=== PATIENT | female | born 1955 | race Two or more races ===

== ENCOUNTER 2023-04-06 09:35 | Outpatient (OUT) | payer OTHER, MEDICARE, SELFPAY ==
--- NOTE | 2023-04-06 09:43 | MM_ITS ---
Patient: VARGAS RIVAS Exam Date: 04/06/2023 : 1955 Gender:F Ordering : DR David Horan . Admission #: [id number] Family : Non-Staff Physician Order #: [id number] CLICK HERE TO VIEW EXAM RADIOLOGY REPORT PROCEDURE: MM TOMOSYNTHESIS SCREENING BI COMPARISON: None. INDICATIONS: Screening Calculator Name NCI Breast Cancer Risk Assessment Tool 5 Year Breast Cancer Risk 2.30% Lifetime Breast Cancer Risk 6.90% Personal Breast Cancer No Personal Ovarian Cancer No Treatments None Family Cancers Sister with breast cancer at age 29. LOCATION: [facility] BREAST COMPOSITION: Scattered areas fibroglandular density. FINDINGS: DIAGNOSTIC CATEGORY 2--BENIGN FINDING: RIGHT BREAST: No significant suspicious finding. Scattered benign-appearing calcifications are present. LEFT BREAST: No significant suspicious finding. Scattered benign-appearing calcifications are present. RECOMMENDATIONS: ROUTINE MAMMOGRAM AND CLINICAL EVALUATION IN 12 MONTHS. PLEASE NOTE: A NORMAL MAMMOGRAM DOES NOT EXCLUDE THE POSSIBILITY OF BREAST CANCER. A CLINICALLY SUSPICIOUS PALPABLE LUMP SHOULD BE BIOPSIED. Dictated by: Nirav Durbin M.D. on 04/07/2023 at 13:56 Approved by: Nirav Durbin M.D. on 04/07/2023 at 14:01
== END 2023-04-06 09:40 | disposition home or self-care (01) ==
LOC: MAMMO 04-07 09:37
PROVIDERS: Visit Provider Obstetrics & Gynecology
DX: Z12.31 Encounter for screening mammogram for malignant neoplasm of breast (principal); Z80.3 Family history of malignant neoplasm of breast
CPT/HCPCS: 77063; 77067

== ENCOUNTER 2023-06-23 13:00 | Outpatient (OUT) | payer OTHER, MEDICARE, SELFPAY | END 2023-06-23 13:00 | disposition home or self-care (01) | LOC: RAD 13:00 | DX: Z53.8 Procedure and treatment not carried out for other reasons (principal) ==

== ENCOUNTER 2024-04-09 07:53 | Outpatient (OUT) | payer OTHER, MEDICARE, SELFPAY ==
--- NOTE | 2024-04-09 07:58 | MM_ITS ---
Patient Name: VARGAS RIVAS MR#: [id number] : 1955 Exam Date: 04/09/2024 Ordering Doctor: DR David Horan . RADIOLOGY REPORT PROCEDURE: MM TOMOSYNTHESIS SCREENING BI COMPARISON: MM TOMOSYNTHESIS SCREENING BI, 04/06/2023. INDICATIONS: Screening Calculator Name NCI Breast Cancer Risk Assessment Tool 5 Year Breast Cancer Risk 2.30% Lifetime Breast Cancer Risk 6.60% Personal Breast Cancer No Personal Ovarian Cancer No Treatments None Family Cancers Sister with breast cancer at age 29. LOCATION: [facility] BREAST COMPOSITION: There are scattered areas of fibroglandular density. FINDINGS: DIAGNOSTIC CATEGORY 2--BENIGN FINDING. NO CHANGE FROM COMPARISON. Scattered benign-appearing calcifications are present. Scattered benign-appearing lymph nodes are present. RIGHT BREAST: No significant suspicious finding. LEFT BREAST: No significant suspicious finding. RECOMMENDATIONS: ROUTINE MAMMOGRAM AND CLINICAL EVALUATION IN 12 MONTHS. PLEASE NOTE: A NORMAL MAMMOGRAM DOES NOT EXCLUDE THE POSSIBILITY OF BREAST CANCER. A CLINICALLY SUSPICIOUS PALPABLE LUMP SHOULD BE BIOPSIED. Dictated by: Antonio Colon MD on 04/09/2024 at 11:54 Approved by: Antonio Colon MD on 04/09/2024 at 11:55
--- OUTSIDE RECORDS SUMMARY | 2024-04-09 08:08 | XMS_ITS | CCD ---
Author Organization [facility] Care Team Providers Care Humanities Department Chair Name Role Phone Marin Batres Primary Care Provider Nilson Pan MD Primary Care Provider Marin BATRES Primary Care Physician DANA, DR VASQUEZ Consulting Unavailable KARASIK, DR VASQUEZ Admitting Unavailable KARASIK, DR VASQUEZ Attending Unavailable Edgar, Kaylee Consulting Unavailable KARASIK, DR VASQUEZ Admitting Unavailable KARASIK, DR VASQUEZ Attending Unavailable KARASIK, DR VASQUEZ Consulting Unavailable KARASIK, DR VASQUEZ Consulting Unavailable KARASIK, DR VASQUEZ Admitting Unavailable KARASIK, DR VASQUEZ Attending Unavailable Nilson Pan MD Primary Care Provider Marin Batres MD Primary Care Provider Nilson Pan MD Primary Care Provider NILSON PAN Admitting Unavailable YVES JONES Attending Unavailab NILSON Boo Referring Unavailable NILSON PAN Primary Care Unavailable DEMETRICE ALFONSO Attending U NILSON Hawthorne Primary Care Unavailable Nilson Pan MD Primary Care Provider CHRISTOPHE PATTERSON Attending Unavailable NILSON PAN Primary Care Unavailable MARIN BATRES Primary Care Unavailable MARIN BEAVER Attending Unavailable ROBIN DAWKINS Attending Unavailable Marin BATRES Primary Care Physician [phone] LONG Heredia Attending Unavailable Anika Mckenzie Attending Unavailable BROWN, Christopher Attending Unavailable BROWN, Christopher Attending Unavailable BROWN, Christopher Attending Unavailable BROWN, Christopher Attending Unavailable BROWN, Christopher Attending Unavailable BROWN, Christopher Attending Unavailable BROWN, Christopher Attending Unavailable BROWN, Christopher Attending Unavailable BROWN, Christopher Attending Unavailable BROWN, Christopher Attending Unavailable BROWN, Christopher Attending Unavailable BROWN, Christopher Consulting Unavailable REFERRAL, SELF Attending Unavailable MD Sandro BATRESer Consulting Unavailabl e XOCHILT, Terrie A Consulting Unavailabl e BROWN, Christopher Consulting Unavailable BROWN, Christopher Consulting Unavailable BROWN, Christopher Consulting Unavailable BROWN, Christopher Consulting Unavailable BROWN, Christopher Consulting Unavailable BROWN, Christopher Consulting Unavailable BROWN, Christopher Consulting Unavailable BROWN, Christopher Consulting Unavailable BROWN, Christopher Consulting Unavailable BROWN, Christopher Consulting Unavailable BROWN, Christopher Consulting Unavailable BROWN, Christopher Consulting Unavailable BROWN, Christopher Consulting Unavailable BROWN, Christopher Consulting Unavailable BROWN, Christopher Consulting Unavailable BROWN, Christopher Consulting Unavailable REFERRAL, SELF Attending Unavailable GISEL, Christopher Consulting Unavailable MD GISEL Christopher Consulting Unavailabl e XOCHILT, Terrie A Consulting Unavailabl e BROWN, Christopher Consulting Unavailable BROWN, Christopher Consulting Unavailable BROWN, Christopher Consulting Unavailable BROWN, Christopher Consulting Unavailable BROWN, Christopher Consulting Unavailable BROWN, Christopher Consulting Unavailable BROWN, Christopher Consulting Unavailable BROWN, Christopher Consulting Unavailable BROWN, Christopher Consulting Unavailable BROWN, Christopher Consulting Unavailable BROWN, Christopher Consulting Unavailable BROWN, Christopher Consulting Unavailable BROWN, Christopher Consulting Unavailable BROWN, Christopher Consulting Unavailable BROWN, Christopher Consulting Unavailable BROWN, Christopher Consulting Unavailable BROWN, Christopher Attending Unavailable BROWN, Christopher Admitting Unavailable BROWN, Christopher Attending Unavailable BROWN, Christopher Admitting Unavailable Tari Meier Attending Unavailable Allergies Allergy Classification Reported Allergen(s) Allergy Type Date of Onset Reaction(s) Facility (20 sources) zolpidem; Translations: [zolpidem] Drug Allergy 03-15-2022 sleep walking [facility] Medications Current Medications Medication Drug Class(es) Dates Sig (Normalized) Sig (Original) acetaminophen 325 mg / HYDROcodone bitartrate 5 mg oral tablet (5 sources) Opioid Agonist End: 07-17-2021 take 1 tablet by mouth every six hours as needed for pain HYDROcodone-acetam inophen (NORCO) 5-325 MG per tablet Take 1 tablet by mouth every 6 hours as needed for Pain. 0 07/17/2021 Discontinued (LIST CLEANUP) amoxicillin 500 mg / clavulanate 125 mg oral tablet (5 sources) Penicillin-class Antibacterial Start: 07-20-2019 End: 07-17-2021 take 1 tablet by mouth every eight hours amoxicillin-clavul anate (AUGMENTIN) 500-125 MG per tablet take 1 tablet by mouth every 8 hours for 10 days 0 07/20/2019 07/17/2021 Discontinued (LIST CLEANUP) ascorbic acid 60 mg / beta carotene 5000 unt / copper sulfate 40 mg / dl-alpha tocopheryl acetate 30 unt / sodium selenite 0.04 mg / zinc oxide 40 mg oral tablet (3 sources) Vitamin C take 1 tablet by mouth once daily Multiple Vitamins-Minerals (THERAPEUTIC MULTIVITAMIN-FORENSIC PSYCHOLOGIST ALS) tablet Take 1 tablet by mouth daily 0 Active azelastine hydrochloride 0.137 mg/actuat metered dose nasal spray (7 sources) Histamine-1 Receptor Antagonist Start: 12-14-2022 azelastine hydrochloride 137 mcg spray Refills(s) 0 Start Date: 12/14/22 Status: Ordered Start: 12-01-2022 End: 12-01-2023 azelastine (ASTELIN) 137 mcg (0.1 %) nasal spray Indications: Postnasal drip 1 (one) spray by Each Nare route 2 (two) times a day . 30 mL 12 12/01/2022 12/01/2023 Active biotin 10 mg oral capsule (7 sources) Biotin 10 MG CAP S Take by mouth 0 Active clotrimazole 10 mg oral lozenge (2 sources) Azole Antifungal Start: 2022 End: 2023 clotrimazole 10 mg Blas 10 mg = 1 lozenge(s), Oral, QID, X 7 day(s), # 28 lozenge(s), Refills(s) 0, Pharmacy: [id number], 157, cm, 08/26/23 9:54:00 EST, Height/Length Dosing, 61.3, kg, 08/26/23 9:54:00 EST, Weight Dosing Start Date: 08/26/23 Stop Date: 09/02/23 Status: Ordered cyclobenzaprine hydrochloride 10 mg oral tablet (2 sources) Muscle Relaxant Start: 2021 End: 2021 take 1 tablet by mouth three times daily as needed for muscle spasms cyclobenzaprine (FLEXERIL) 10 MG tablet Take 1 tablet by mouth 3 times daily as needed for Muscle spasms 15 tablet 0 08/09/2022 08/09/2022 Discontinued (REORDER) diclofenac sodium 0.01 mg/mg topical gel (6 sources) Nonsteroidal Anti-inflammatory Drug Start: 2023 End: 2023 apply 2 g topically four times daily diclofenac topical 1% gel 2 gm, Topical, QID for 30 day(s), 100 gm, Refill(s) 5 Start Date: 09/20/23 Stop Date: 03/18/24 Status: Ordered escitalopram 10 mg oral tablet (4 sources) Serotonin Reuptake Inhibitor Start: 2023 take 1 tablet by mouth once daily escitalopram 10 mg Tab 10 mg = 1 tab(s), Oral, Daily, # 30 tab(s), Refills(s) 5, Pharmacy: [id number], 157, cm, 12/27/23 14:42:00 EDT, Height/Length Dosing, 58.3, kg, 12/27/23 14:42:00 EDT, Weight Dosing Start Date: 12/27/23 Status: Ordered fluticasone propionate 0.05 mg/actuat metered dose nasal spray (2 sources) Corticosteroid Start: 2022 End: 2023 take 1 spray(s) nasal route twice daily fluticasone propionate (FLONASE) 50 mcg/actuation nasal spray Indications: Post-nasal drainage Instill 1 (one) spray into each nostril 2 (two) times a day . 16 g 3 11/30/2022 12/01/2022 Discontinued (Patient's Request) gabapentin 100 mg oral capsule (5 sources) Anti-epileptic Agent End: 2020 take 1 capsule by mouth three times daily gabapentin (NEURONTIN) 100 MG capsule Take 100 mg by mouth 3 times daily. 0 07/17/2021 Discontinued (LIST CLEANUP) ibuprofen 600 mg oral tablet (6 sources) Nonsteroidal Anti-inflammatory Drug Start: 2021 End: 2021 take 1 tablet by mouth every six hours as needed for pain ibuprofen (IBU) 600 MG tablet Take 1 tablet by mouth every 6 hours as needed for Pain 30 tablet 0 08/09/2022 Active Start: 07-17-2021 take 1 tablet by ramon three times daily as needed for pain ibuprofen (ADVIL;MOTRIN) 600 MG tablet Take 1 tablet by mouth 3 times daily as needed for Pain 30 tablet 0 07/17/2021 Active latanoprost 0.05 mg/ml ophthalmic solution (13 sources) Prostaglandin Analog Start: 12-14-2022 latanoprost Opth 0.005% Louise 1 drop(s), OPTH, Once a day (at bedtime), 2.5 mL, Refill(s) 0 Start Date: 12/14/22 Status: Ordered lidocaine 0.05 mg/mg medicated patch (2 sources) Antiarrhythmic, Amide Local Anesthetic Start: 07-20-2022 apply 1 dose transdermal route once daily lidocaine (LIDODERM) 5 % Place 1 patch onto the skin daily 12 hours on, 12 hours off. 10 patch 0 07/20/2022 Active loratadine 10 mg oral tablet (8 sources) Start: 12-14-2022 take 1 tablet by mouth every other day loratadine 10 mg Tab 10 mg = 1 tab(s), Oral, Every other day, # 15 tab(s), Refills(s) 0 Start Date: 12/14/22 Status: Ordered Start: 11-30-2022 End: 03-30-2023 take 1 tablet by mouth once daily loratadine (CLARITIN) 10 mg tablet Indications: Post-nasal drainage Take 1 (one) tablet (10 mg total) by mouth daily . 30 tablet 3 11/30/2022 03/30/2023 Active montelukast 10 mg oral tablet (6 sources) Leukotriene Receptor Antagonist Start: 05-05-2022 take 1 tablet by mouth once daily montelukast (SINGULAIR) 10 mg tablet Take 1 (one) tablet (10 mg total) by mouth nightly . 0 09/18/2022 Active Multiple Vitamins-Minerals (THERAPEUTIC MULTIVITAMIN-FORENSIC PSYCHOLOGIST ALS) tablet (4 sources) take 1 tablet by mouth once daily Multiple Vitamins-Minerals (THERAPEUTIC MULTIVITAMIN-MINE RALS) tablet Take 1 tablet by mouth daily 0 Active Multivitamin, Therapeutic w/ Minerals (15 sources) Start: 12-15-2016 Multivitamin, Therapeutic w/ Minerals 1 tab(s), Oral, Daily, 30 tab(s), Refill(s) 0, Prophylaxis Start Date: 12/15/16 Status: Ordered mupirocin 0.02 mg/mg topical ointment (4 sources) RNA Synthetase Inhibitor Antibacterial Start: 04-22-2023 mupirocin Top 2% Oint 1 betty, Topical, BID, 15 gram, Refill(s) 0, apply a thin film neo affected areas, [id number], 157, cm, 04/22/23 16:44:00 EDT, Height/Length Dosing, 60.1, kg, 04/22/23 16:44:00 EDT, Weight Dosing Start Date: 04/22/23 Status: Ordered naproxen 500 mg oral tablet (1 source) Nonsteroidal Anti-inflammatory Drug Start: 04-06-2024 take 1 tablet by mouth twice daily naproxen 500 mg Tab 500 mg = 1 tab(s), Oral, BID, # 60 tab(s), Refills(s) 0, Pharmacy: [id number], 157, cm, 04/06/24 14:08:00 EDT, Height/Length Dosing, 58.2, kg, 04/06/24 14:08:00 EDT, Weight Dosing Start Date: 04/06/24 Status: Ordered pantoprazole 40 mg delayed release oral tablet (6 sources) Proton Pump Inhibitor Start: 09-24-2022 take 1 tablet by mouth once daily before breakfast pantoprazole (PROTONIX) 40 MG tablet TAKE 1 TABLET BY MOUTH EVERY MORNING before BREAKFAST 30 tablet 5 09/24/2022 Active Start: 05-05-2022 take 1 tablet by ramon th once daily before breakfast pantoprazole (PROTONIX) 40 MG tablet Take 1 tablet by mouth every morning (before breakfast) 30 tablet 2 05/05/2022 Active predniSONE 20 mg oral tablet (2 sources) Start: 12-14-2022 predniSONE 20 mg Tab take 2 tablet once daily for 3 days then 1 tablet once daily Start Date: 12/14/22 Status: Ordered Start: 12-11-2022 predniSONE (DE LTASONE) 20 MG tablet 2 tabs daily x 3 days then 1 tab daily 10 tablet 0 12/11/2022 Active traZODone hydrochloride 50 mg oral tablet (4 sources) Serotonin Reuptake Inhibitor Start: 08-09-2023 take 1 tablet by mouth once daily at bedtime traZODONE 50 mg Tab 50 mg = 1 tab(s), Oral, Once a day (at bedtime), # 30 tab(s), Refills(s) 1, Pharmacy: [id number], 157, cm, 08/09/23 18:53:00 EST, Height/Length Dosing, 61, kg, 08/09/23 18:53:00 EST, Weight Dosing Start Date: 08/09/23 Status: Ordered triamcinolone acetonide 0.001 mg/mg oral paste (3 sources) Corticosteroid Start: 08-09-2023 triamcinolone Top 0.1% Paste 1 betty, Oral, TID, 5 gram, Refill(s) 1, [id number], 157, cm, 08/09/23 18:53:00 EST, Height/Length Dosing, 61, kg, 08/09/23 18:53:00 EST, Weight Dosing Start Date: 08/09/23 Status: Ordered Completed/Discontinued Medications Medication Drug Class(es) Dates Sig (Normalized) Sig (Original) acyclovir 800 mg oral tablet (3 sources) Herpesvirus Nucleoside Analog DNA Polymerase Inhibitor, Herpes Simplex Virus Nucleoside Analog DNA Polymerase Inhibitor, Herpes Zoster Virus Nucleoside Analog DNA Polymerase Inhibitor Start: 12-14-2022 take 1 tablet by mouth once daily acyclovir 800 mg Tab 800 mg = 1 tab(s), Oral, 5x/Day, Take one tab daily for 5 days with onset of blisters on mouth. Refills are for future out breaks, # 5 tab(s), Refills(s) 5, [facility]acy: [id number], 157, cm, 12/14/22 13:51:00 EDT, Height/Length Dosing, 57.7, kg, 12/14/22 13:51:00 EDT, Weight Dosing Start Date: 12/14/22 Status: Ordered Albuterol (Eqv-ProAir HFA) 90 mcg/inh inhalation aerosol (5 sources) Start: 04-25-2023 take 1 dose by inhalation every six hours Albuterol (Eqv-ProAir HFA) 90 mcg/inh inhalation aerosol 2 puff(s), Inhalation, q6hr, 1 EA, Refill(s) 1, [id number], 157, cm, 04/22/23 16:44:00 EDT, Height/Length Dosing, 60.1, kg, 04/22/23 16:44:00 EDT, Weight Dosing Start Date: 04/25/23 Status: Ordered 5 ml bupivacaine hydrochloride 5 mg/ml injection (1 source) Amide Local Anesthetic Start: 07-17-2021 End: 07-17-2021 bupivacaine (PF) (MARCAINE) 0.5 % injection 50 mg cetirizine hydrochloride 10 mg oral tablet (9 sources) Histamine-1 Receptor Antagonist Start: 04-14-2022 take 1 tablet by mouth once daily cetirizine 10 mg Tab 10 mg = 1 tab(s), Oral, Daily, take 1 tablet by mouth once daily if needed for ALLERGY SYMPTOMS, # 90 tab(s), Refills(s) 0, Pharmacy: [id number], 157, cm, 04/13/22 11:09:00 EDT, Height/Length Dosing, 56.1, kg, 04/13/22 11:09:00 EDT, Weight Dosing Start Date: 04/14/22 Status: Ordered Cetirizine HCl ( ZYRTEC ALLERGY PO) Take by mouth daily 0 Active fluconazole 150 mg oral tablet (1 source) Azole Antifungal Start: 03-15-2023 take 2 tablets by mouth once Diflucan 150 mg Tab 150 mg = 1 tab(s), Oral, Once, 2 nd tab taken 72 hours after first dose, # 2 tab(s), Refills(s) 0, Pharmacy: [id number], 157, cm, 03/15/23 13:07:00 EDT, Height/Length Dosing, 60.1, kg, 03/15/23 13:07:00 EDT, Weight Dosing Start Date: 03/15/23 Status: Ordered 1 ml ketorolac tromethamine 15 mg/ml cartridge (3 sources) Nonsteroidal Anti-inflammatory Drug, Cyclooxygenase Inhibitor Start: 12-11-2022 End: 12-11-2022 ketorolac (TORADOL) injection 15 mg Start: 08-09-2022 End: 08-09-2022 ketorolac (TORADOL) injectio n 30 mg Start: 07-17-2021 End: 07-17-2021 ketorolac (TORADOL) injectio n 30 mg 1 ml methylPREDNISolone acetate 80 mg/ml injection (1 source) Corticosteroid Start: 07-17-2021 End: 07-17-2021 methylPREDNISolone acetate (DEPO-MEDROL) injection 80 mg 2 ml orphenadrine citrate 30 mg/ml injection (1 source) Muscle Relaxant Start: 08-09-2022 End: 08-09-2022 orphenadrine (NORFLEX) injection 30 mg Problems Active Problems Problem Classification Problem Date Documented Da te Episodic/Chronic Abdominal pain (2 sources) Epigastric pain; Translations: [Epigastric pain] Episodic Administrative/social admission (16 sources) Cares for dependent relative at home; Translations: [Dependent relative needing care at home] Onset: 3 Episodic Allergic reactions (4 sources) Hypersensitivity reaction 06-06-2023 Episodic Anxiety disorders (20 sources) Anxiety; Translations: [Generalized anxiety disorder] Onset: 3 Resolved: 9 07-16-2019 Chronic Diabetes mellitus without complication (16 sources) Impaired fasting glycemia; Translations: [Impaired fasting glucose] Onset: 2 Episodic Diseases of mouth; excluding dental (18 sources) Stomatitis; Translations: [Other forms of stomatitis] Onset: 3 Episodic Esophageal disorders (6 sources) Gastroesophageal reflux disease without esophagitis; Translations: [Gastro-esophageal reflux disease without esophagitis] Onset: 4 Chronic Genitourinary symptoms and ill-defined conditions (15 sources) Genuine stress incontinence 02-27-2019 Chronic Genitourinary symptoms and ill-defined conditions (10 sources) Urgency of urination; Translations: [Female genital organ symptoms] Onset: 2 Episodic Glaucoma (15 sources) Glaucoma 02-27-2019 Chronic Immunizations and screening for infectious disease (14 sources) Encounter for screening for human papillomavirus (HPV); Translations: [Serology positive] Onset: 2 12-14-2022 Episodic Menopausal disorders (15 sources) Ovarian failure; Translations: [Other primary ovarian failure] Chronic Miscellaneous mental health disorders (14 sources) Psychophysiologic insomnia; Translations: [Psychophysiologic insomnia] Onset: 3 Chronic Mood disorders (9 sources) Moderate recurrent major depression; Translations: [Major depressive disorder, recurrent, moderate] Onset: 4 Chronic Mycoses (5 sources) Candidal vulvovaginitis; Translations: [Acute candidiasis of vulva and vagina] Onset: 3 Episodic Nausea and vomiting (2 sources) Nausea; Translations: [Nausea] Episodic Osteoarthritis (20 sources) Arthritis; Translations: [Localized, primary osteoarthritis of the wrist] Onset: 4 Resolved: 6 07-16-2019 Chronic Other and unspecified benign neoplasm (20 sources) History of polyp of colon 11-19-2021 Episodic Other bone disease and musculoskeletal deformities (1 source) Other specified disorders of bone density and structure, unspecified site; Translations: [OTH D/O BONE DEN STRUCT UNS SITE] Onset: 2 Episodic Other connective tissue disease (1 source) Neuralgia; Translations: [Nerve pain] Episodic Other connective tissue disease (1 source) Bursitis of right shoulder; Translations: [Bursitis of right shoulder] Episodic Other connective tissue disease (4 sources) Fibromyalgia; Translations: [Fibromyalgia] Onset: 2 Episodic Other connective tissue disease (15 sources) Fibromyositis 04-29-2016 Episodic Other connective tissue disease (2 sources) Muscle spasm of cervical muscle of neck; Translations: [Other muscle spasm] Episodic Other connective tissue disease (1 source) Radial styloid tenosynovitis [de Quervain]; Translations: [Radial styloid tenosynovitis (de quervain)] Onset: 4 Episodic Other connective tissue disease (1 source) Biceps tendinitis; Translations: [Bicipital tendinitis, left shoulder] Onset: 4 Episodic Other connective tissue disease (1 source) Enthesopathy; Translations: [Other enthesopathies, not elsewhere classified] Onset: 4 Episodic Other connective tissue disease (1 source) Triceps tendinitis 04-06-2024 Episodic Other ear and sense organ disorders (7 sources) Sensorineural hearing loss, unilateral, right ear, with unrestricted hearing on the contralateral side; Translations: [Sensorineural hearing loss, unilateral] Onset: 9 12-18-2018 Chronic Other ear and sense organ disorders (4 sources) Tinnitus of right ear; Translations: [Tinnitus, right] Onset: 9 12-18-2018 Other gastrointestinal disorders (15 sources) Irritable bowel syndrome 04-29-2016 Chronic Other gastrointestinal disorders (14 sources) Chronic constipation 04-13-2022 Episodic Other nervous system disorders (12 sources) Left leg peripheral neuropathy 06-06-2023 Chronic Other non-traumatic joint disorders (2 sources) Bilateral wrist pain; Translations: [Pain in both wrists] Other screening for suspected conditions (not mental disorders or infectious disease) (4 sources) Patient encounter status; Translations: [Encounter for screening mammogram for malignant neoplasm of breast] Onset: 2 Episodic Other skin disorders (1 source) Disorder of skin pigmentation; Translations: [Disorder of pigmentation, unspecified] Onset: 3 Episodic Other skin disorders (14 sources) Skin lesion 10-18-2022 Episodic Other upper respiratory disease (16 sources) Seasonal allergic rhinitis; Translations: [Other seasonal allergic rhinitis] Onset: 2 Chronic Other upper respiratory disease (4 sources) Lesion of nose 04-22-2023 Episodic Other upper respiratory infections (4 sources) Nasal discharge; Translations: [Postnasal drip] Onset: 3 11-30-2022 Episodic Otitis media and related conditions (20 sources) Acute eustachian tube salpingitis; Translations: [Dysfunction of eustachian tube] Resolved: 9 11-26-2019 Episodic Residual codes; unclassified (4 sources) Asymptomatic menopausal state; Translations: [ASYMPTOMATIC MENOPAUSAL STATE] Onset: 2 Episodic Residual codes; unclassified (14 sources) Family history of polyp of colon 12-16-2021 Episodic Residual codes; unclassified (2 sources) Body mass index 20-24 - normal; Translations: [Body mass index (BMI) 23.0-23.9, adult] Onset: 3 Episodic Spondylosis; intervertebral disc disorders; other back problems (20 sources) Neck pain; Translations: [Backache] Onset: 1 07-20-2011 Episodic Unclassified (15 sources) Body mass index 20-24 - normal 11-25-2020 Unclassified (15 sources) Patient encounter status 12-06-2021 Unclassified (1 source) Tendinitis of left biceps brachii 04-06-2024 Viral infection (20 sources) Herpes zoster without complication; Translations: [Herpes zoster] Onset: 3 12-14-2019 Episodic Past or Other Problems Problem Classification Problem Date Documented Date Episodic/Chronic Disorders of lipid metabolism (15 sources) Hypercholesterolemia Resolved: 6 07-16-2019 Chronic Nonspecific chest pain (2 sources) Chest wall pain; Translations: [Other chest pain] Onset: 3 Episodic Other connective tissue disease (15 sources) Metatarsalgia Resolved: 6 07-16-2019 Episodic Other ear and sense organ disorders (4 sources) Unilateral sensorineural hearing loss with unrestricted hearing on the contralateral side; Translations: [Sensorineural hearing loss, unilateral, right ear, with unrestricted hearing on the contralateral side] Onset: 9 12-18-2018 Episodic Other ear and sense organ disorders (7 sources) Tinnitus of right ear; Translations: [Tinnitus, right ear] Onset: 9 12-18-2018 Episodic Other upper respiratory disease (15 sources) Allergic rhinitis Resolved: 9 07-16-2019 Chronic Results Test Name Value Interpretation Reference Range Facility Ambulatory Visit Summaryon 0 04-06-2024 Ambulatory Visit Summary Ambulatory Visit Summary CHIARA GERARDRA oGvea :1955 Visit Date:04/06/2024 Ambulatory Visit Instructions Your Diagnosis Biceps tendonitis on left Triceps tendonitis BMI 23.0-23.9, adult Your Care Team Attending Physician - Marin BATRES MD Primary Care Physician - Marin BATRES MD This Is Your Medications List naproxen (naproxen 500 mg Tab) Contact prescribing physician if questions or concerns escitalopram (escitalopram 10 mg Tab) latanoprost ophthalmic (latanoprost Opth 0.005% Louise) multivitamin with minerals (Multivitamin, Therapeutic w/ Minerals) Procedures Performed Colonoscopy (05/24/2022), Colonoscopy (05/24/2022), Appendectomy, Colonoscopy, EGD, Hysterectomy and unilateral salpingo-oophorectom y sample, Oophorectomy of remaining ovary, rectocele repair, RSO, UGI. Discharge Vitals Heart Rate (Peripheral) 72 Respiratory Rate 16 Blood Pressure 124/68 Height 157 cm Height 62 in Weight 58.2 kg Weight 128.04 lb BMI 23.61 What to do next You Need to Schedule the Following Appointments Follow Up with GISEL RAMIREZ, ELLEN Saba When: Only if needed Where: Medications What How Much When Instructions New naproxen (naproxen 500 mg Tab) 1 Tablets By Mouth 2 times a day Pickup at [id number] Unchanged escitalopram (escitalopram 10 mg Tab) 1 Tablets By Mouth Every day Contact prescribing physician if questions or concerns Unchanged latanoprost ophthalmic (latanoprost Opth 0.005% Louise) 1 Drops Ophthalmic Once a day (at bedtime) Contact prescribing physician if questions or concerns Unchanged multivitamin with minerals (Multivitamin, Therapeutic w/ Minerals) 1 Tablets By Mouth Every day Contact prescribing physician if questions or concerns Pharmacy Information [id number]: [address], [place] [phone] Allergies Zolpidem Tartrate (sleep walking) Problems Ongoing - Any problem that you are currently receiving treatment for. 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 Cervical radiculopathy Chronic insomnia Chronic seasonal allergic rhinitis Constipation, chronic Depression, major, recurrent, moderate Family history of colonic polyps Fibromyalgia Generalized anxiety disorder GERD without esophagitis Glaucoma Herpes simplex type 1 antibody positive History of colon polyps Hypopigmented skin lesion IBS (irritable bowel syndrome) IFG (impaired fasting glucose) Lumbar radiculopathy Neuropathy of left foot Ovarian failure Painful mouth Personal history of colonic polyps Primary osteoarthritis of right wrist Screening mammogram, encounter for Stress incontinence Triceps tendonitis Historical - Any problem that you are no longer receiving treatment for. Acute Eustachian salpingitis, right ear Anxiety Arthritis Chronic allergic rhinitis Eustachian tube dysfunction Herpes zoster High blood cholesterol Metatarsalgia of left foot Patient Survey You may receive a survey via text or e-mail asking about your office visit. Please share your experience with us by completing your survey. We appreciate your feedback and thank you for choosing us for your care. Normal [facility] Family Medicine Office/Clini c Noteon 04-06-2024 Family Medicine Office/Clinic Note Family Medicine Office/Clinic Note Chief Complaint c/o L arm swelling, painful. Patient states was lifting trash bags about 2 weeks ago, pain began the next day. OTC ibuprofen and using heating pain. History of Present Illness The patient is a 69-year-old female here with complaints of left arm pain. She has been experiencing pain in her left arm since last week, particularly in the biceps muscle. The pain intensifies when she attempts to straighten her elbow. She is right-handed and able to move her shoulders bilaterally without difficulty. She denies any recent falls. She was lifting garbage bags full of clothing at her daughter's garage sale when this first developed. Did not recognize anything out of the ordinary. She has Motrin, but has not taken it recently. She applied a heating pad to the area this afternoon, which provided some relief. Also expresses concern that she has continued to have marital discord. is very nonresponsive. Since she has retired she has not found any fulfillment in the relationship and has tried to get him to change but he continues to work full-time past snf age and basically drinks alcohol and ignoring her the rest of the time. This is very frustrating for her. Family members are supportive but she is uncertain if she could leave him and do okay on her own. He is not physically abusive but she has had concerns about fidelity in the past Review of Systems PHQ Score Initial Depression Screen Score: 1 SCORE See HPI otherwise negative Physical Exam Vitals & Measurements HR: 72(Peripheral) RR: 16 BP: 124/68 SpO2: 100% HT: 62 in HT: 157 cm WT: 58.2 kg WT: 128.04 lb BMI: 23.61 Patient appears well groomed and adequately hydrated. Head is normocephalic and atraumatic. Patient is wearing corrective lenses. Neck is supple with no tenderness with palpation posteriorly. Left shoulder moves relatively well with no crepitance or erythema. Distal left biceps are very tender with visible swelling of the soft tissue. Pain intensifies with attempts at elbow flexion against resistance. Tenderness along the triceps distally as well as the lateral and medial epicondylar insertions. Full extension of the elbow is limited without moderate pain. 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 No bruising or erythema appreciated in this area of pain. Patient is depressed and tearful, but insightful. Assessment/Plan 1. Biceps tendonitis on left (M75.22: Bicipital tendinitis, left shoulder) Strong suspicion patient has a biceps tendinitis and possible triceps tendinitis. She is also tender over the insertion of the lateral and medial epicondyles. I think a trial of anti-inflammatory daily form of naproxen for several weeks moist heat or ice and gentle stretching will be the most beneficial. If lack of improvement would give consideration to a physical therapy consultation although I am not certain imaging or orthopedic consultation is necessary at this point. Ordered: Body Mass Index (BMI) documented 3008F Current tobacco non-user 1036F Depression Screening Negative 3352F Influenza immunization status assessed 1030F Patient screen for fall risk: no falls in last year or 1 fall with no injury in last year 1101F 2. Triceps tendonitis (M77.8: Other enthesopathies, not elsewhere classified) See #1 3. Depression, major, recurrent, moderate (F33.1: Major depressive disorder, recurrent, moderate) patient is continuing to take the Lexapro but it does not seem to be changing her social situation. I have encouraged her to continue thinking about counseling or perhaps an amicable separation to see how she does for a while. Reassurance provided that believe she has the ability to do well on her own and it may force her to make some decisions about the relationship that otherwise she is enabling him by remaining in the home. 4. Marital dysfunction (Z63.0: Problems in relationship with spouse or partner) See #3 5. BMI 23.0-23.9, adult (Z68.23: Body mass index [BMI] 23.0-23.9, adult) Body mass index is stable Orders: naproxen, 500 mg = 1 tab(s), Oral, BID, # 60 tab(s), Refills(s) 0, Pharmacy: [facility], 157, cm, 04/06/24 14:08:00 EDT, Height/Length Dosing, 58.2, kg, 04/06/24 14:08:00 EDT, Weight Dosing Portions of this record may have been created with voice recognition artificial intelligence software, specifically Folloyu, Dragon Express and or Dragon Ambient Experience. Substitutions may have occurred due to the inherent limitations of voice recognition and artificial intelligence software. 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 Normal [facility] Comment on above: Result Comment: Elec tronically Signed By: Marin BATRES MD\.br\Date and Time Signed: 04/06/24 20:03 EDT Ambulatory Visit Summaryon 0 12-27-2023 Ambulatory Visit Summary DIANA GERARD :1955 Visit Date:12/27/2023 Ambulatory Visit Instructions Your Diagnosis Depression, major, recurrent, moderate Generalized anxiety disorder Caregiver stress Chronic insomnia GERD without esophagitis Your Care Team Attending Physician - Marin BATRES MD Primary Care Physician - Marin BATRES MD This Is Your Medications List escitalopram (escitalopram 10 mg Tab) Contact prescribing physician if questions or concerns diclofenac topical (diclofenac topical 1% gel) latanoprost ophthalmic (latanoprost Opth 0.005% Louise) multivitamin with minerals (Multivitamin, Therapeutic w/ Minerals) Procedures Performed Colonoscopy (05/24/2022), Colonoscopy (05/24/2022), Appendectomy, Colonoscopy, EGD, Hysterectomy and unilateral salpingo-oophorectom y sample, Oophorectomy of remaining ovary, rectocele repair, RSO, UGI. Discharge Vitals Heart Rate (Peripheral) 78 Respiratory Rate 16 Blood Pressure 136/80 Height 157 cm Height 62 in Weight 58.3 kg Weight 128.26 lb BMI 23.65 What to do next Scheduled Follow-Up Appointments Tuesday. 2023 2:20 PM EDT With: Marin BATRES MD Where: [facility] Normal [facility] Family Medicine Office/Clini c Noteon 12-27-2023 Family Medicine Office/Clinic Note Chief Complaint pt presents today very tearful c/o increased depression/anxiety and marital discord History of Present Illness The patient is a 70-year-old female who presents for evaluation of severe depression. The patient continues to assist her disabled brother, which has been a source of stress for her. She reports decreased social interactions with her spouse, Chance, he works continually now at age 70 when he comes home generally watches TV and drinks a lot of beer. He has done this for years and they have really drifted apart. Have not had any intimacy in over 20 years. There has been some infidelity on his part in the distant past.. Her daughter and a friend have expressed recognizing her reluctance to engage in activities. Despite these challenges, she maintains an active lifestyle, engaging in walking as a form of exercise, but experiences depressive symptoms upon returning home. 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 She expresses apprehension about moving out on her spouse, . Her does not help acute care registered nurse and yard work, although she reports feeling safe in her home. Her has not verbally or physically threatened her. She believes her depressive symptoms began after acquiring a Facebook relationship with a few individuals who requested her information and marital status which she declined. Upon their departure interacting with her , she began feeling unwell, culminating in an incident where she felt unease and experienced severe anxiety. This continues. Patient is not suicidal. Review of Systems PHQ Score Initial Depression Screen Score: 6 SCORE See HPI otherwise negative Physical Exam Vitals & Measurements HR: 78(Peripheral) RR: 16 BP: 136/80 SpO2: 99% HT: 62 in HT: 157 cm WT: 58.3 kg WT: 128.26 lb BMI: 23.65 Constitutional: Adequately groomed well-hydrated HEENT: Conjunctiva clear pupils are symmetric. Grossly normal hearing neck is supple no JVD or bruits no thyromegaly Cardiothoracic: Regular rate and rhythm no murmur gallop or rub Respiratory: CTA bilaterally Abdomen/GI: Soft nontender thin Genitourinary: Deferred Musculoskeletal: Well-developed Neurologic: No acute neurologic deficits no tremors Integument: Dark skin tones Psychiatric: Patient is tearful crying upset. Has reasonable insight. Assessment/Plan 1. Depression, major, recurrent, moderate (F33.1: Major depressive disorder, recurrent, moderate) Extensive discussion with patient. Treatment feels that she is dealing with depression and anxiety complicated by chronic fibromyalgia and physical complaints of pain. Her 's lack of social interaction and intimacy is also a significant issue. He is not likely to change because of his alcohol dependence. We have discussed getting her into some counseling and even perhaps going to visit family members out of state for several months just to clear the air and help her develop some self-sufficiency and interests outside of providing constant care for him. She is agreeable to initiate Lexapro 10 mg daily understanding potential side effects of sedation or agitation. She will notify me of any intolerance and keep close follow-up. [place] [facility] [place] 2. Generalized anxiety disorder (F41.1: Generalized anxiety disorder) See #1 [place] [facility] [place] 3. Caregiver stress (Z63.6: Dependent relative needing care at home) See #1. Applauded her efforts at continuing to provide care for her sibling but she needs to realize her limits 4. Chronic insomnia (F51.04: Psychophysiologic insomnia) Continue maintaining good sleep hygiene and self-care. Medication will hopefully help with this Orders: escitalopram, 10 mg = 1 tab(s), Oral, Daily, # 30 tab(s), Refills(s) 5, Pharmacy: [facility], 157, cm, 12/27/23 14:42:00 EDT, Height/Length Dosing, 58.3, kg, 12/27/23 14:42:00 EDT, Weight Dosing Portions of this record may have been created with voice recognition artificial intelligence software, specifically Folloyu, [employer] and or [employer]. Substitutions may have occurred due to the inherent limitations of voice recognition and artificial intelligence software. 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 Normal [facility] Comment on above: Result Comment: Maldonado gambino Signed By: GISEL RAMIREZ, Marin\.jesica\Date and Time Signed: 12/27/23 16:30 EDT Patient Educationon 12-26-19 Patient Education Mental and Behavioral Health Generalized Anxiety Disorder, Adult Generalized anxiety disorder (JUVENAL) is a mental health condition. Unlike normal worries, anxiety related to JUVENAL is not triggered by a specific event. These worries do not fade or get better with time. JUVENAL interferes with relationships, work, and school. JUVENAL symptoms can vary from mild to severe. People with severe JUVENAL can have intense waves of anxiety with physical symptoms that are similar to panic attacks. What are the causes? The exact cause of JUVENAL is not known, but the following are believed to have an impact: ? Differences in natural brain chemicals. ? Genes passed down from parents to children. ? Differences in the way threats are perceived. ? Development and stress during childhood. ? Personality. What increases the risk? The following factors may make you more likely to develop this condition: ? Being female. ? Having a family history of anxiety disorders. ? Being very shy. ? Experiencing very stressful life events, such as the of a loved one. ? Having a very stressful family environment. What are the signs or symptoms? People with JUVENAL often worry excessively about many things in their lives, such as their health and family. Symptoms may also include: ? Mental and emotional symptoms: ? Worrying excessively about natural disasters. ? Fear of being late. ? Difficulty concentrating. ? Fears that others are judging your performance. ? Physical symptoms: ? Fatigue. ? Headaches, muscle tension, muscle twitches, trembling, or feeling shaky. ? Feeling like your heart is pounding or beating very fast. ? Feeling out of breath or like you cannot take a deep breath. ? Having trouble falling asleep or staying asleep, or experiencing restlessness. ? Sweating. ? Nausea, diarrhea, or irritable bowel syndrome (IBS). ? Behavioral symptoms: ? Experiencing erratic moods or irritability. ? Avoidance of new situations. ? Avoidance of people. ? Extreme difficulty making decisions. How is this diagnosed? This condition is diagnosed based on your symptoms and medical history. You will also have a physical exam. Your health care provider may perform tests to rule out other possible causes of your symptoms. To be diagnosed with JUVENAL, a person must have anxiety that: ? Is out of his or her control. ? Affects several different aspects of his or her life, such as work and relationships. ? Causes distress that makes him or her unable to take part in normal activities. ? Includes at least three symptoms of JUVENAL, such as restlessness, fatigue, trouble concentrating, irritability, muscle tension, or sleep problems. Before your health care provider can confirm a diagnosis of JUVENAL, these symptoms must be present more days than they are not, and they must last for 6 months or longer. How is this treated? This condition may be treated with: ? Medicine. Antidepressant medicine is usually prescribed for long-term daily control. Anti-anxiety medicines may be added in severe cases, especially when panic attacks occur. ? Talk therapy (psychotherapy). Certain types of talk therapy can be helpful in treating JUVENAL by providing support, education, and guidance. Options include: ? Cognitive behavioral therapy (CBT). People learn coping skills and self-calming techniques to ease their physical symptoms. They learn to identify unrealistic thoughts and behaviors and to replace them with more appropriate thoughts and behaviors. ? Acceptance and commitment therapy (ACT). This treatment teaches people how to be mindful as a way to cope with unwanted thoughts and feelings. ? Biofeedback. This process trains you to manage your body's response (physiological response) through breathing techniques and relaxation methods. You will work with a therapist while machines are used to monitor your physical symptoms. ? Stress management techniques. These include yoga, meditation, and exercise. A mental health specialist can help determine which treatment is best for you. Some people see improvement with one type of therapy. However, other people require a combination of therapies. Follow these instructions at home: Lifestyle ? Maintain a consistent routine and schedule. ? Anticipate stressful situations. Create a plan and allow extra time to work with your plan. ? Practice stress management or self-calming techniques that you have learned from your therapist or your health care provider. ? Exercise regularly and spend time outdoors. ? Eat a healthy diet that includes plenty of vegetables, fruits, whole grains, low-fat dairy products, and lean protein. ? Do not eat a lot of foods that are high in fat, added sugar, or salt (sodium). ? Drink plenty of water. ? Avoid alcohol. Alcohol can increase anxiety. ? Avoid caffeine and certain jmlp-mpo-kwuyzwd cold medicines. These may make you feel worse. Ask your pharmacist which medicines to elvis (more content not included)... Normal [facility] Patient Educationon 12-24-19 Patient Education Mental and Behavioral Health Major Depressive Disorder, Adult Major depressive disorder is a mental health condition. This disorder affects feelings. It can also affect the body. Symptoms of this condition last most of the day, almost every day, for 2 weeks. This disorder can affect: ? Relationships. ? Daily activities, such as work and school. ? Activities that you normally like to do. What are the causes? The cause of this condition is not known. The disorder is likely caused by a mix of things, including: ? Your personality, such as being a shy person. ? Your behavior, or how you act toward others. ? Your thoughts and feelings. ? Too much alcohol or drugs. ? How you react to stress. ? Health and mental problems that you have had for a long time. ? Things that hurt you in the past (trauma). ? Big changes in your life, such as divorce. What increases the risk? The following factors may make you more likely to develop this condition: ? Having family members with depression. ? Being a woman. ? Problems in the family. ? Low levels of some brain chemicals. ? Things that caused you pain as a child, especially if you lost a parent or were abused. ? A lot of stress in your life, such as from: ? Living without basic needs of life, such as food and group home. ? Being treated poorly because of race, sex, or christian (discrimination). ? Health and mental problems that you have had for a long time. What are the signs or symptoms? The main symptoms of this condition are: ? Being sad all the time. ? Being grouchy all the time. ? Loss of interest in things and activities. Other symptoms include: ? Sleeping too much or too little. ? Eating too much or too little. ? Gaining or losing weight, without knowing why. ? Feeling tired or having low energy. ? Being restless and weak. ? Feeling hopeless, worthless, or guilty. ? Trouble thinking clearly or making decisions. ? Thoughts of hurting yourself or others, or thoughts of ending your life. ? Spending a lot of time alone. ? Inability to complete common tasks of daily life. If you have very bad MDD, you may: ? Believe things that are not true. ? Hear, see, taste, or feel things that are not there. ? Have mild depression that lasts for at least 2 years. ? Feel very sad and hopeless. ? Have trouble speaking or moving. How is this treated? This condition may be treated with: ? Talk therapy. This teaches you to know bad thoughts, feelings, and actions and how to change them. ? This can also help you to communicate with others. ? This can be done with members of your family. ? Medicines. These can be used to treat worry (anxiety), depression, or low levels of chemicals in the brain. ? Lifestyle changes. You may need to: ? Limit alcohol use. ? Limit drug use. ? Get regular exercise. ? Get plenty of sleep. ? Make healthy eating choices. ? Spend more time outdoors. ? Brain stimulation. This treatment excites the brain. This is done when symptoms are very bad or have not gotten better with other treatments. Follow these instructions at home: Activity ? Get regular exercise as told. ? Spend time outdoors as told. ? Make time to do the things you enjoy. ? Find ways to deal with stress. Try to: ? Meditate. ? Do deep breathing. ? Spend time in nature. ? Keep a journal. ? Return to your normal activities as told by your doctor. Ask your doctor what activities are safe for you. Alcohol and drug use ? If you drink alcohol: ? Limit how much you use to: ? 0?1 drink a day for women. ? 0?2 drinks a day for men. ? Be aware of how much alcohol is in your drink. In the [place] one drink equals one 12 oz bottle of beer (355 mL), one 5 oz glass of wine (148 mL), or one 1? oz glass of hard liquor (44 mL). ? Talk to your doctor about: ? Alcohol use. Alcohol can affect some medicines. ? Any drug use. General instructions ? Take hzyq-ork-ppxlyvg and prescription medicines and herbal preparations only as told by your doctor. ? Eat a healthy diet. ? Get a lot of sleep. ? Think about joining a support group. Your doctor may be able to suggest one. ? Keep all follow-up visits as told by your doctor. This is important. Where to find more information: ? National [place] on Mental Illness: www.armand.org ? [place] National [place] of Mental Health: www.nimh.nih.gov ? [place] [employer]: www.psychiatry.org/p atients-families/ Contact a doctor if: ? Your symptoms get worse. ? You get new symptoms. Get help right away if: ? You hurt yourself. ? You have serious thoughts about hurting yourself or others. ? You see, hear, taste, smell, or feel things that are not there. If you ever feel like you may hurt yourself or others, or have thoughts about taking your own life, get help right away. Go to your nearest emergency department or: ? Call your local emergency services (911 i (more content not included)... Normal [facility] Consent for Treatmenton 11-28 Consent for Treatment [id number] 6#1.00TIFF Normal [facility] Anabel 12-13-2023 ALT No additional P-5'-P [Catalytic activity/Vol] 17 Int._Unit/L Normal - [facility] Comment on above: Performed By: #### 1 [id number], [id number], [id number], [id number], [id number] ####[facility] [address] [place] [address] Rudi 12-13-2023 AST [Catalytic activity/Vol] 22 Int._Unit/L Normal -43 [facility] Comment on above: Performed By: #### 1 [id number], [id number], [id number], [id number], [id number], [id number] ####[facility] [address] [place] [address] BMPon 12-13-2023 Anion gap [Moles/Vol] 11 mmol/L Normal - [facility] Comment on above: Performed By: #### 1 [id number], [id number], [id number], [id number], [id number], [id number] ####[facility] [address] [place] [address] Calcium [Mass/Vol] 9.9 mg/dL Normal 8.9-11.1 [facility] Comment on above: Performed By: #### 1 [id number], [id number], [id number], [id number], [id number], [id number] ####[facility] [address] [place] [address] Chloride [Moles/Vol] 107 mmol/L Normal 101-111 [facility] Comment on above: Performed By: #### 1 [id number], [id number], [id number], [id number], [id number], [id number] ####[facility] [address] [place] [address] CO2 [Moles/Vol] 28 mmol/L Normal 21-31 [facility] Comment on above: Performed By: #### 1 [id number], [id number], [id number], [id number], [id number], [id number] ####[facility] [address] [place] [address] Creatinine [Mass/Vol] 0.8 mg/dL Normal 0.5-1.3 [facility] Comment on above: Performed By: #### 1 [id number], [id number], [id number], [id number], [id number], [id number] ####[facility] [address] [place] [address] Glucose [Mass/Vol] 96 mg/dL Normal 55-199 [facility] Comment on above: Performed By: #### 1 [id number], 1138806, 9624379, 1588435, 9102673, 6291520 ####[facility] [address] [place] [address] Potassium [Moles/Vol] 4.8 mmol/L Normal 3.5-5.3 [facility] Comment on above: Performed By: #### 1 5513278, 1155556, 2159557, 5368516, 0488059, 1621020 ####[facility] [address] [place] [address] Sodium [Moles/Vol] 141 mmol/L Normal 135-145 [facility] Comment on above: Performed By: #### 1 5466029, 4020020, 7081712, 7920172, 0664581, 4179384 ####[facility] [address] [place] [address] Urea nitrogen [Mass/Vol] 15 mg/dL Normal 5-21 [facility] Comment on above: Performed By: #### 1 [id number], 0811652, 5110963, 6965422, 8913262, 0902550 ####[facility] [address] [place] [address] Urea nitrogen/Creatinine [Mass ratio] 19 No Units Normal 10-20 [facility] Comment on above: Performed By: #### 1 6865443, 8499292, 7252493, 7839262, 3276386, 9503451 ####[facility] [address] [place] [address] CBC w/Indiceson 12-13-2023 Erythrocyte distribution width (RBC) [Ratio] 13.0 % Normal 10.9-14.2 [facility] Comment on above: Performed By: #### 1 4993738, 1229901, 7568992, 9552723, 7862719, 2362857 ####[facility] [address] [place] [address] Hematocrit (Bld) [Volume fraction] 38.5 % Normal 34.0-46.0 [facility] Comment on above: Performed By: #### 1 8707445, 9521367, 1774359, 9416676, 6663784, 8969176 ####[facility] [address] [place] [address] Hemoglobin (Bld) [Mass/Vol] 12.7 g/dL Normal 12.0-16.0 [facility] Comment on above: Performed By: #### 1 7728617, 7182249, 1289745, 4847766, 0663864, 2973323 ####[facility] [address] [place] [address] MCH (RBC) [Entitic mass] 30.7 pg Normal 27.0-34.0 [facility] Comment on above: Performed By: #### 1 2990113, 3246801, 5956979, 7891305, 4226165, 6181120 ####[place] [id number] MCHC (RBC) [Mass/Vol] 33.0 g/dL Normal 31.4-36.0 [facility] Comment on above: Performed By: #### 1 2879909, 6322764, 7359767, 3886495, 4955972, 4932751 ####[place] [id number] MCV (RBC) [Entitic vol] 93.3 fL Normal 80.0-100.0 [facility] Comment on above: Performed By: #### 1 3430705, 1865213, 7253945, 1952433, 7650004, 8967994 ####[place] [address] Platelet 312.0 E9/L Normal 150.0-500.0 [facility] Comment on above: Performed By: #### 1 8734603, 3343834, 3015802, 0512896, 5972716, 7550292 ####[place] [id number] Platelet mean volume (Bld) [Entitic vol] 8.6 fL Normal 6.4-10.8 [facility] Comment on above: Performed By: #### 1 0975675, 2378760, 8007941, 2049560, 7541680, 9713660 ####[place] [id number] RBC (Bld) [#/Vol] 4.1 E12/L Low 4.3-5.9 [facility] Comment on above: Performed By: #### 1 8579208, 1552879, 3482414, 2416924, 4877230, 0841461 ####[place] [id number] RBC size Nom (Bld) NORMAL Invalid Interpretation Code [facility] Comment on above: Performed By: #### 1 4056236, 7778049, 8893156, 7091620, 7701398, 0657118 ####[facility] [address] [place] [address] WBC corrected for nucl RBC Auto (Bld) [#/Vol] 5.6 E9/L Normal 4.0-11.0 [facility] Comment on above: Performed By: #### 1 4411754, 6264585, 6562199, 8061206, 7967055, 4027792 ####[facility] [address] [place] [address] Lipid Panelon 12-13-2023 Cholesterol [Mass/Vol] 206 mg/dL High 120-200 [facility] Comment on above: Performed By: #### 1 9164211, 4201921, 2390496, 4010335, 5115639, 5544508 ####[facility] [address] [place] [address] Cholesterol in HDL [Mass/Vol] 66 mg/dL Invalid Interpretation Code [facility] Comment on above: Result Comment: '>= 60 LOW RISK' '<= 40 HIGH RISK' Performed By: #### 1 4736768, 5766029, 7687805, 1272311, 2881222, 9308309 ####[facility] [address] [place] [address] Cholesterol in LDL [Mass/Vol] 128 mg/dL Normal <=129 [facility] Comment on above: Performed By: #### 1 8252559, 5886168, 6121121, 1357161, 4332981, 0907615 ####[facility] [address] [place] [address] Cholesterol in VLDL [Mass/Vol] 26 mg/dL Normal 7-40 [facility] Comment on above: Performed By: #### 1 8524710, 1748200, 1093570, 0344675, 7664846, 1023610 ####[facility] [address] [place] [address] Triglyceride [Mass/Vol] 129 mg/dL Normal <=149 [facility] Comment on above: Performed By: #### 1 0081541, 6297455, 6503699, 6530253, 9519890, 3788308 ####[facility] [address] [place] [address] eGFRon 12-13-2023 eGFR 79 mL/min/1.73 m2 Normal >=59 [facility] Comment on above: Order Comment: Order added by Discern Expert. Performed By: #### 1 6062438, 4641159, 9452344, 3237563, 9824125, 6371255 ####[facility] [address] [place] [address] SAMARA w/Reflex if POSon 2023 Nuclear Ab Ql (S) Negative Invalid Interpretation Code Negative [facility] Comment on above: Result Comment: Perf ormed at: [facility] [place] [id number] [place], [place] [id number] PhD Rhea Vance Performed By: #### 1 3322704, 17999748, 11645570, 4435921 ####[facility] [address] [place] [address] RF Quanton 09-22-2023 Rheumatoid factor Qn [IU]/mL Invalid Interpretation Code <14.0 [facility] Comment on above: Result Comment: Perf ormed at: [facility] [address] [id number] PhD Rhea Vance Performed By: #### 1 6974172, 29468827, 29600022, 3711144 ####[facility] [address] [place] [address] Ambulatory Visit Summaryon 0 09-20-2023 Ambulatory Visit Summary DIANA GERARD :1955 Visit Date:09/20/2023 Ambulatory Visit Instructions Your Diagnosis Primary osteoarthritis of right wrist Fibromyalgia Painful mouth Mucositis oral Your Care Team Attending Physician - Marin BATRES MD Primary Care Physician - Marin BATRES MD This Is Your Medications List diclofenac topical (diclofenac topical 1% gel) latanoprost ophthalmic (latanoprost Opth 0.005% Louise) multivitamin with minerals (Multivitamin, Therapeutic w/ Minerals) [Image Removed: STOP]Stop taking these medications albuterol (Albuterol (Eqv-ProAir HFA) 90 mcg/inh inhalation aerosol) azelastine nasal (azelastine hydrochloride 137 mcg spray) cetirizine (cetirizine 10 mg Tab) loratadine (loratadine 10 mg Tab) trazodone (traZODONE 50 mg Tab) Procedures Performed Colonoscopy (05/24/2022), Colonoscopy (05/24/2022), Appendectomy, Colonoscopy, EGD, Hysterectomy and unilateral salpingo-oophorectom y sample, Oophorectomy of remaining ovary, rectocele repair, RSO, UGI. Discharge Vitals Temperature (Temporal Artery) 36.4 ?C Heart Rate (Peripheral) 72 Blood Pressure 122/70 Height 157 cm Height 62 in Weight 61 kg Weight 134.2 lb BMI 24.75 What to do next You Need to Schedule the Following Appointments Follow Up with Marin BATRES MD [facility] When: Only if needed Comments: labs to be called Where: Medications What How Much When Instructions Changed diclofenac topical (diclofenac topical 1% gel) 2 Gram Topical 4 times a day Duration: 30 Days Printed Prescription Unchanged latanoprost ophthalmic (latanoprost Opth 0.005% Louise) 1 Drops Ophthalmic Once a day (at bedtime) Unchanged multivitamin with minerals (Multivitamin, Therapeutic w/ Minerals) 1 Tablets By Mouth Every day What How Much When Comments Stop Taking albuterol (Albuterol (Eqv-ProAir HFA) 90 mcg/ inh inhalation aerosol) 2 Puffs Inhalation Every 6 hours Stop Taking azelastine nasal (azelastine hydrochloride 137 mcg spray) Stop Taking cetirizine (cetirizine 10 mg Tab) 1 Tablets By Mouth Every day take 1 tablet by mouth once daily if needed for ALLERGY SYMPTOMS Stop Taking loratadine (loratadine 10 mg Tab) 1 Tablets By Mouth Every other day Stop Taking trazodone (traZODONE 50 mg Tab) 1 Tablets By Mouth Once a day (at bedtime) Allergies Zolpidem Tartrate (sleep walking) Problems Ongoing - Any problem that you are currently receiving treatment for. 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 Cervical radiculopathy Chronic insomnia Chronic seasonal allergic rhinitis Constipation, chronic Family history of colonic polyps Fibromyalgia Generalized anxiety disorder Glaucoma Herpes simplex type 1 antibody positive History of colon polyps Hypopigmented skin lesion IBS (irritable bowel syndrome) IFG (impaired fasting glucose) Lumbar radiculopathy Mucositis oral Neuropathy of left foot Ovarian failure Painful mouth Personal history of colonic polyps Primary osteoarthritis of right wrist Screening mammogram, encounter for Stress incontinence Historical - Any problem that you are no longer receiving treatment for. Acute Eustachian salpingitis, right ear Anxiety Arthritis Chronic allergic rhinitis Eustachian tube dysfunction Herpes zoster High blood cholesterol Metatarsalgia of left foot Patient Survey You may receive a survey via text or e-mail asking about your office visit. Please share your experience with us by completing your survey. We appreciate your feedback and thank you for choosing us for your care. Education Materials Arthritis Arthritis means joint pain. It can also mean joint disease. A joint is a place where bones come together. There are more than 100 types of arthritis. What are the causes? ? Wear and tear of a joint. This is the most common cause. ? Too much of a chemical called uric acid in the blood, which leads to pain in the joint (gout). ? Pain and swelling (inflammation) in a joint. ? Infection of a joint. ? Injuries in the joint. ? A reaction to medicines (allergy). In some cases, the cause may not be known. What are the signs or symptoms? ? Pain in a joint when moving. ? Redness at a joint. ? Swelling at a joint. ? Stiffness at a joint. ? Warmth coming from the joint. ? A fever. ? A feeling of being sick. How is this treated? This condition may be treated with: ? Treating the cause, if it is known. ? Rest. ? Raising (elevating) the joint. ? Putting cold or hot packs on the joint. ? Medicines to treat symptoms and reduce pain and swelling. ? Shots (injections) of medicines, such as cortisone, into the joint. You may also be told to make changes in your life, such as doing exercises and losing weight. Follow these instructions at home: Medicines ? Take ktin-qux-wpkkbod and prescription medicines only as neo (more content not included)... Normal [facility] CHEMISTRYOrdered By: SYSTEM SYSTEM on 09-20-2023 CRP mg/dL Normal <=1.9mg/dL Remisol Chem CRPon 09-20-2023 CRP [Mass/Vol] mg/L Normal <=1.9 [facility] Comment on above: Performed By: #### 1 [id number], 75122590, 45200670, 2711504 ####[facility] [address] [place] [address] Family Medicine Office/Clini c Noteon 09-20-2023 Family Medicine Office/Clinic Note Chief Complaint ER f/u from Carolina alejandro 09/03/23 for arthritis pain. Pt states flares up when cooking or doing dishes. History of Present Illness The patient is a 68-year-old female who is here for follow-up regarding arthritis in the wrist and mouth sores. She saw Dr. Dawkins, ENT, who diagnosed her with burning mouth syndrome and oral mucositis. He prescribed her Miles solution, which she has already used 2 times a day and thinks it seems to help. She felt the blister bigger last night. She was supposed to use it 3 times a day, but yesterday it was already late. She went to the ER for bilateral wrist pain this past week records were all reviewed including radiographs.. If she works on both wrists, it hurts and she has to hold onto it. She is right hand dominant. She was given Voltaren gel, which helped her. She denies any lesions on the skin. We did discuss about the possibility of lupus or rheumatoid disease. Review of Systems PHQ Score Initial Depression Screen Score: 0 SCORE see hpi otherwise neg Physical Exam Vitals & Measurements T: 36.4 ?C(Temporal Artery) HR: 72(Peripheral) BP: 122/70 SpO2: 97% HT: 62 in HT: 157 cm WT: 61 kg WT: 134.2 lb BMI: 24.75 The patient is adequately groomed, reasonably hydrated. Normocephalic, atraumatic, wearing corrective lenses. She is uncomfortable, but in no acute distress. Oropharynx exam today, there is a generalized erythema. I do not appreciate any overt lesions currently. Supple. No appreciated thyromegaly. No respiratory distress. Exam of the hands shows that there are osteoarthritic changes with some Heberden's nodes at the DIP joints. She also has some crookedness to the distal fingers. The first, second, and third MCP joints bilaterally are tender with palpation. I do not appreciate a true synovitis. Her pediatric lpn strength on the right hand is reduced compared to the left. Flexion, extension, and lateral rotations of the wrists fair, but uncomfortable. She is quite tender at the base of the right metacarpal proximally. I do not appreciate crepitance. Dark skin tones. There is some notable erythema over the MCP joints bilateral hands. She is cooperative, but uncomfortable. Assessment/Plan 1. Primary osteoarthritis of right wrist (M19.031: Primary osteoarthritis, right wrist) Discussed with patient that she obviously has osteoarthritic changes by radiographic imaging but I do have concerns about the possibility of an inflammatory component with her mucositis ongoing and the nature of the severity of pain. She is responding with the Voltaren gel and I have encouraged her to continue using that up to 4 times daily. The mild erythema over the dorsum of the MCP joints may represent an otitis. We will plan to rule out amatory arthritis with SAMARA looking at possible lupus, C-reactive protein and sed rate and rheumatoid factor. Results will follow and determine if any referral is needed. Ordered: SAMARA w/Reflex if POS C-Reactive Protein Lab Specimen Collect 21013 Rheumatoid Factor Quantitative Sedimentation Rate Automated 2. Fibromyalgia (M79.7: Fibromyalgia) Has had ongoing chronic pain somewhat polyarticular with myalgias in the past so must keep in mind that this may be related she has deferred psychiatric meds although have been used in the past Ordered: SAMARA w/Reflex if POS C-Reactive Protein Lab Specimen Collect 99068 Rheumatoid Factor Quantitative Sedimentation Rate Automated 3. Painful mouth (K13.79: Other lesions of oral mucosa) See #4 Ordered: SAMARA w/Reflex if POS C-Reactive Protein Lab Specimen Collect 51012 Rheumatoid Factor Quantitative Sedimentation Rate Automated 4. Mucositis oral (K12.30: Oral mucositis (ulcerative), unspecified) ENT feels that this is oral mucositis versus burning mouth syndrome. Has prescribed MIles solution. She may continue using this but continued to evaluate for inflammatory arthritides that could be related. Results will follow Ordered: SAMARA w/Reflex if POS C-Reactive Protein Lab Specimen Collect 20016 Rheumatoid Factor Quantitative Sedimentation Rate Automated Orders: diclofenac topical, 2 gm, Topical, QID for 30 day(s), 100 gm, Refill(s) 5 Portions of this record may have been created with voice recognition artificial intelligence software, specifically [employer], [employer] and or [employer]. Substitutions may have occurred due to the inherent limitations of voice recognition and artificial intelligence software. 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 Normal [facility] Comment on above: Result Comment: Elec tronically Signed By: Marin BATRES MD\.br\Date and Time Signed: 09/20/23 14:30 EST HEMATOLOGYOrdered By: Moiz Cook on 09-20-2023 ESR (Bld) [Velocity] 11 mm/h Normal 0 - 34 mm/hr FT HemeAutoSS Sed Rate Automatedon 024 ESR (Bld) [Velocity] 11 mm/h Normal 0-[address] [facility] Comment on above: Performed By: #### 1 [id number], 45348443, 31384323, 4620611 ####[facility] [address] [place] [address] Consultation Noteon 09-19-19 Consultation Note [id number] #1.00TIFF Normal [facility] Patient Educationon 09-17-19 Patient Education Orthopedics Arthritis Arthritis means joint pain. It can also mean joint disease. A joint is a place where bones come together. There are more than 100 types of arthritis. What are the causes? ? Wear and tear of a joint. This is the most common cause. ? Too much of a chemical called uric acid in the blood, which leads to pain in the joint (gout). ? Pain and swelling (inflammation) in a joint. ? Infection of a joint. ? Injuries in the joint. ? A reaction to medicines (allergy). In some cases, the cause may not be known. What are the signs or symptoms? ? Pain in a joint when moving. ? Redness at a joint. ? Swelling at a joint. ? Stiffness at a joint. ? Warmth coming from the joint. ? A fever. ? A feeling of being sick. How is this treated? This condition may be treated with: ? Treating the cause, if it is known. ? Rest. ? Raising (elevating) the joint. ? Putting cold or hot packs on the joint. ? Medicines to treat symptoms and reduce pain and swelling. ? Shots (injections) of medicines, such as cortisone, into the joint. You may also be told to make changes in your life, such as doing exercises and losing weight. Follow these instructions at home: Medicines ? Take wcru-vib-ywcwefq and prescription medicines only as told by your doctor. ? Do not take aspirin for pain if your doctor says that you may have gout. Activity ? Rest your joint if your doctor tells you to. ? Avoid activities that make the pain worse. ? Exercise your joint regularly as told by your doctor. Try doing exercises like: ? Swimming. ? Water aerobics. ? Biking. ? Walking. Managing pain, stiffness, and swelling ? If told, put ice on the affected area. To do this: ? Put ice in a plastic bag. ? Place a towel between your skin and the bag. ? Leave the ice on for 20 minutes, 2?3 times a day. ? Take off the ice if your skin turns bright red. This is very important. If you cannot feel pain, heat, or cold, you have a greater risk of damage to the area. ? If your joint is swollen, raise (elevate) it above the level of your heart if told by your doctor. ? If your joint feels stiff in the morning, try taking a warm shower. ? If told, put heat on the affected area. Do this as often as told by your doctor. Use the heat source that your doctor recommends, such as a moist heat pack or a heating pad. If you have diabetes, do not apply heat without asking your doctor. To apply heat: ? Place a towel between your skin and the heat source. ? Leave the heat on for 20?30 minutes. ? Take off the heat if your skin turns bright red. This is very important. If you cannot feel pain, heat, or cold, you have a greater risk of getting burned. General instructions ? Maintain a healthy weight. Follow instructions from your doctor for weight control. ? Do not smoke or use any products that contain nicotine or tobacco. If you need help quitting, ask your doctor. ? Keep all follow-up visits. Where to find more information ? National Institutes of Health: www.niams.nih.gov Contact a doctor if: ? The pain gets worse. ? You have a fever. Get help right away if: ? You have very bad pain in your joint. ? You have swelling in your joint. ? Your joint is red. ? Many joints become painful and swollen. ? You have very bad back pain. ? Your leg is very weak. Summary ? Arthritis means joint pain. It can also mean joint disease. A joint is a place where bones come together. ? The most common cause of this condition is wear and tear of a joint. ? Symptoms of this condition include redness, swelling, or stiffness of the joint. ? This condition is treated with rest, raising the joint, medicines, and putting cold or hot packs on the joint. ? Follow your doctor's instructions about medicines, activity, exercises, and other home care treatments. This information is not intended to replace advice given to you by your health care provider. Make sure you discuss any questions you have with your health care provider. Document Revised: 05/25/2022 Document Reviewed: 05/25/2022 [employer] Patient Education ? 2022 [employer]. Normal [facility] [id number]# 1.00TIFF [facility] [id number]# 1.00TIFF [facility] XR HAND RIGHT (MIN 3 VIEWS)o n 09-13-2023 XR HAND RIGHT (MIN 3 VIEWS) EXAM: XR WRIST RIGHT (MIN 3 VIEWS), XR HAND RIGHT (MIN 3 VIEWS) 09/13/2023 COMPARISON STUDY: Right wrist 09/03/2020. FINDINGS: Frontal, oblique and lateral views of the right hand as well as frontal, oblique, lateral and ulnar deviation views of the right wrist for a total of 7 images were obtained. HISTORY: pain radial lateral wrist into 1st CMC and MCP joints FINDINGS: Right wrist: 1. No acute fracture or dislocation. 2. Interval progression of multifocal arthritic changes about the right wrist. There is interval worsening of periarticular soft tissue swelling about the wrist. Chondrocalcinosis has developed distal to the ulna. 3. There is greater joint space narrowing, periarticular sclerosis, osteophytosis and periarticular ossicle formation about the first CMC articulation with periarticular soft tissue swelling. Mild progression of arthritic changes at the distal radiocarpal articulation. Multifocal subchondral cyst formation with sclerosis involving the proximal carpal bones particularly involving the lunate noted. 4. On the lateral image there are changes from atherosclerosis with peripheral vascular arterial disease. Well-corticated ossicle volar to the distal radius is again identified and may be related to degenerative change or remote trauma. Right hand: 1. Multifocal osteoarthritis with joint space narrowing, periarticular sclerosis, osteophytosis and periarticular soft tissue swelling is noted. There is involvement of the first and second more so than the third MCP, first IP and all interphalangeal articulations. Arthritic changes are most apparent involving the second through fifth DIP articulations. 2. No acute fracture or dislocation. Interpreted by: Stephan Simms MD Signed by: Stephan Simms MD 09/13/23 Final result Normal [facility] XR WRIST RIGHT (MIN 3 VIEWS) on 09-13-2023 XR WRIST RIGHT (MIN 3 VIEWS) EXAM: XR WRIST RIGHT (MIN 3 VIEWS), XR HAND RIGHT (MIN 3 VIEWS) 09/13/2023 COMPARISON STUDY: Right wrist 09/03/2020. FINDINGS: Frontal, oblique and lateral views of the right hand as well as frontal, oblique, lateral and ulnar deviation views of the right wrist for a total of 7 images were obtained. HISTORY: pain radial lateral wrist into 1st CMC and MCP joints FINDINGS: Right wrist: 1. No acute fracture or dislocation. 2. Interval progression of multifocal arthritic changes about the right wrist. There is interval worsening of periarticular soft tissue swelling about the wrist. Chondrocalcinosis has developed distal to the ulna. 3. There is greater joint space narrowing, periarticular sclerosis, osteophytosis and periarticular ossicle formation about the first CMC articulation with periarticular soft tissue swelling. Mild progression of arthritic changes at the distal radiocarpal articulation. Multifocal subchondral cyst formation with sclerosis involving the proximal carpal bones particularly involving the lunate noted. 4. On the lateral image there are changes from atherosclerosis with peripheral vascular arterial disease. Well-corticated ossicle volar to the distal radius is again identified and may be related to degenerative change or remote trauma. Right hand: 1. Multifocal osteoarthritis with joint space narrowing, periarticular sclerosis, osteophytosis and periarticular soft tissue swelling is noted. There is involvement of the first and second more so than the third MCP, first IP and all interphalangeal articulations. Arthritic changes are most apparent involving the second through fifth DIP articulations. 2. No acute fracture or dislocation. Interpreted by: Stephan Simms MD Signed by: Stephan Simms MD 09/13/23 Final result Normal [facility] Physician Referralon 024 Physician Referral [id number] #[id number] Normal [facility] Family Medicine Office/Clini c Noteon 09-06-2023 Family Medicine Office/Clinic Note Chief Complaint pt presents tonight cont c/o mouthsores and dizziness History of Present Illness The patient is here with continued complaints of mouth pain. Her tongue and lips are sore. She denies any change in her taste. She denies any fevers, chills, or trouble swallowing. She had difficulty breathing while on the treadmill just this morning.. She denies any cough. She denies any sick contacts at home. Have treated her with clotrimazole troches, swish and swallow nystatin as well as triamcinolone paste all of which did not resolve the irritation she has inside the mouth. Currently the tongue is not particularly bothered. Also check B12 level to rule out deficiency it was normal. Admits that she is very fatigued. She goes to bed at 8:00 and wakes up around 2:30 every morning. She falls asleep on the recliner for at least another hour or 2 each morning so total of about 7 hours of sleep routinely just disjointed. gets up for work at 4 AM and this is sometimes disturbing. Longstanding history of fibromyalgia. Admittedly just does not feel very well. Review of Systems PHQ Score Initial Depression Screen Score: 0 SCORE See HPI otherwise negative Physical Exam Vitals & Measurements T: 37 ?C(Temporal Artery) HR: 73(Peripheral) RR: 16 BP: 120/80 SpO2: 96% HT: 62 in HT: 157 cm WT: 60 kg WT: 132 lb BMI: 24.34 The patient is adequately groomed, reasonably hydrated. Normocephalic, atraumatic. Wearing corrective lenses. Conjunctivae clear. TMs are clear. Nares unremarkable. Her oropharynx is mildly erythematous. She is explaining that she has significant tenderness just inside the gums on the upper and lower parts beside the teeth, but I do not appreciate any mucosal ulcerations at this time. The tongue appears healthy, not grooved or any plaque formation. There is no exudate. Supple. No palpable adenopathy. Clear bilaterally. Regular rate and rhythm. No murmur, gallop, or rub. The patient is fatigued but cooperative, relatively good insight. Vital Signs Blood pressure is 132/78. Assessment/Plan 1. Painful mouth (K13.79: Other lesions of oral mucosa) At this point I am rather uncertain how to proceed with any further treatment. We did discuss the possibility that she could suffer from lichen planus but I really would like to have her be seen by ENT first to determine if possible steroid taper is necessary. She understands that they will be calling her for appointment. Continue to exercise caution on any topical irritants in the mouth. Maintain good fluid hydration. [place] [facility] [place] 2. Fibromyalgia (M79.7: Fibromyalgia) Moderate concerned that this is the cause of her general sense of ill being. We did discuss the importance of good sleep hygiene perhaps trying to go to bed a little bit later at night so she can sleep longer in the morning. She will notify me if symptoms worsen. May need to give consideration to pregabalin or SSRI. 3. Chronic insomnia (F51.04: Psychophysiologic insomnia) See problem #2 Portions of this record may have been created with voice recognition artificial intelligence software, specifically [employer], [employer] and or [employer]. Substitutions may have occurred due to the inherent limitations of voice recognition and artificial intelligence software. 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 Cervical radiculopathy Chronic insomnia Chronic seasonal allergic rhinitis Constipation, chronic Family history of colonic polyps Fibromyalgia Generalized anxiety disorder Glaucoma Herpes simplex type 1 antibody positive History of colon polyps Hypopigmented skin lesion IBS (irritable bowel syndrome) IFG (impaired fasting glucose) Lumbar radiculopathy Neuropathy of left foot Ovarian failure Painful mouth Personal history of colonic polyps Screening mammogram, encounter for Stress incontinence Historical Acute Eustachian salpingitis, right ear Anxiety Arthritis Chronic allergic rhinitis Eustachian tube dysfunction Herpes zoster High blood cholesterol Metatarsalgia of left foot Procedure/Surgical History Colonoscopy (05/24/2022), Colonoscopy (05/24/2022), Appendectomy, Colonoscopy, EGD, Hysterectomy and unilateral salpingo-oophorectom y sample, Oophorectomy of remaining ovary, rectocele repair, RSO, UGI. Medications Albuterol (Eqv-ProAir HFA) 90 mcg/inh inhalation aerosol, 2 puff(s), Inhalation, q6hr, 1 refills azelastine hydrochloride 137 mcg spray cetirizine 10 mg Tab, 10 mg= 1 tab(s), Oral, Daily latanoprost Opth 0.005% Louise, 1 drop(s), OPTH, Once a day (at bedtime) loratadine 10 mg Tab, 10 mg= 1 tab(s), Oral, Every other day Multivitamin, Therapeutic w/ Minerals, 1 tab(s), Ora (more content not included)... Normal [facility] Comment on above: Result Comment: Elec tronically Signed By: GISEL RAMIREZ, Marin\.br\Date and Time Signed: 09/06/23 22:32 EST Patient Educationon 09-06-19 Patient Education Dermatology Lichen Planus Lichen planus is a skin problem that causes redness, itching, small bumps, and sores. It can affect the skin in any area of the body. Some common areas that are affected include: ? Arms, wrists, legs, or ankles. ? Chest, back, or abdomen. ? Genital areas. ? Gums and inside of the mouth. ? Scalp. ? Fingernails or toenails. Treatment can help control the symptoms of this condition. The condition can last for a long time. It can take 6?18 months or longer for it to go away. What are the causes? The exact cause of this condition is not known. The condition is not passed from one person to another (not contagious). It may be related to an allergy, a medicine, or an autoimmune response. An autoimmune response occurs when the body's defense system (immune system) mistakenly attacks healthy tissues. What increases the risk? The following factors may make you more likely to develop this condition: ? Being 30?60 years of age. ? Taking certain medicines. ? Having been exposed to certain dyes or chemicals. ? Having hepatitis C. What are the signs or symptoms? Symptoms of this condition may include: ? Itching, which can be severe. ? Small reddish or purple bumps on the skin. These may have flat tops and may be round or irregular shaped. ? Redness or white patches on the gums or tongue. ? Redness, soreness, or a burning feeling in the genital area. This may lead to pain or bleeding during sex. ? Changes in the fingernails or toenails. The nails may become thin or rough. They may have ridges in them. ? Redness or irritation of the eyes. This is rare. How is this diagnosed? This condition may be diagnosed based on: ? A physical exam. The health care provider will examine your affected skin and check for changes inside your mouth. ? Removal of a tissue sample to be looked at under a microscope (biopsy). How is this treated? Treatment for this condition may depend on the severity of symptoms. In some cases, no treatment is needed. If treatment is needed to control symptoms, it may include: ? Creams or ointments (topical steroids) to help control itching and irritation. ? Medicine to be taken by mouth. ? Medicine to be taken by injection. ? A treatment in which your skin is exposed to ultraviolet light (phototherapy). ? Lozenges to suck on to help treat sores in the mouth. Follow these instructions at home: Skin care ? Use creams or ointments as told by your health care provider. ? To soothe itching skin: ? Apply cool, wet cloths (cold compresses) to the affected area. ? Take cool baths. Add dry oatmeal to the water. Do not bathe in hot water. ? Do not scratch your skin. To help prevent scratching: ? Keep your fingernails short and clean. ? Cover the affected area with a bandage. ? Wash the affected area with mild soap and cool water as told by your health care provider. ? Keep the genital area as clean and dry as possible. General instructions ? Take or use synd-snl-[id number] and prescription medicines only as told by your health care provider. ? If you have sores in your mouth, avoid spicy and acidic foods as well as alcohol and tobacco. ? Keep all follow-up visits. Contact a health care provider if: ? You have increasing redness, swelling, or pain in the affected area. ? You have fluid, blood, or pus coming from the affected area. ? Your eyes become irritated. ? You have hair loss. Summary ? Lichen planus is a skin problem that causes redness, itching, small bumps, and sores. It can affect the skin in any area of the body. ? Do not scratch your skin. Apply cool, wet cloths (cold compresses) on the affected areas or take cool baths to soothe itching. ? Take or use wnfp-yyf-mdjzozr and prescription medicines only as told by your health care provider. ? Contact a health care provider if you have drainage from the affected area or have increasing redness, swelling, or pain in the area. ? Keep all follow-up visits. This information is not intended to replace advice given to you by your health care provider. Make sure you discuss any questions you have with your health care provider. Document Revised: 10/13/2022 Document Reviewed: 10/13/2022 [employer] Patient Education ? 2022 [employer] ENT Canker Sores Canker sores are small, painful sores that develop inside the mouth. You can get one or more canker sores on the inside of your lips or cheeks, on your tongue, or anywhere inside your mouth. Canker sores cannot be passed from person to person (are not contagious). These sores are different from the sores that you may get on the outside of your lips (cold sores or fever blisters). What are the causes? The cause of this condition is not known. The condition may be passed down from a parent (genetic). What increases the risk? This condition is more likely (more content not included)... Normal [facility] Ambulatory Visit Summaryon 1 Ambulatory Visit Summary DIANA GERARD :1955 Visit Date:08/26/2023 Ambulatory Visit Instructions Your Diagnosis Stomatitis, viral Oral thrush Your Care Team Attending Physician - GISEL RAMIREZ, Marin Primary Care Physician - Marin BATRES MD This Is Your Medications List clotrimazole (clotrimazole 10 mg Blas) Contact prescribing physician if questions or concerns albuterol (Albuterol (Eqv-ProAir HFA) 90 mcg/inh inhalation aerosol) azelastine nasal (azelastine hydrochloride 137 mcg spray) cetirizine (cetirizine 10 mg Tab) latanoprost ophthalmic (latanoprost Opth 0.005% Louise) loratadine (loratadine 10 mg Tab) multivitamin with minerals (Multivitamin, Therapeutic w/ Minerals) mupirocin topical (mupirocin Top 2% Oint) trazodone (traZODONE 50 mg Tab) triamcinolone topical (triamcinolone Top 0.1% Paste) [Image Removed: STOP]Stop taking these medications nystatin (nystatin 100,000 units/mL Oral Susp) Procedures Performed Colonoscopy (05/24/2022), Colonoscopy (05/24/2022), Appendectomy, Colonoscopy, EGD, Hysterectomy and unilateral salpingo-oophorectom y sample, Oophorectomy of remaining ovary, rectocele repair, RSO, UGI. Discharge Vitals Heart Rate (Peripheral) 67 Respiratory Rate 16 Blood Pressure 120/80 Height 157 cm Height 62 in Weight 61.3 kg Weight 134.86 lb BMI 24.87 Medications What How Much When Instructions New clotrimazole (clotrimazole 10 mg Blas) 1 Lozenges By Mouth 4 times a day Duration: 7 Days Pickup at [facility] Unchanged albuterol (Albuterol (Eqv-ProAir HFA) 90 mcg/ inh inhalation aerosol) 2 Puffs Inhalation Every 6 hours Contact prescribing physician if questions or concerns Unchanged azelastine nasal (azelastine hydrochloride 137 mcg spray) Contact prescribing physician if questions or concerns Unchanged cetirizine (cetirizine 10 mg Tab) 1 Tablets By Mouth Every day take 1 tablet by mouth once daily if needed for ALLERGY SYMPTOMS Contact prescribing physician if questions or concerns Unchanged latanoprost ophthalmic (latanoprost Opth 0.005% Louise) 1 Drops Ophthalmic Once a day (at bedtime) Contact prescribing physician if questions or concerns Unchanged loratadine (loratadine 10 mg Tab) 1 Tablets By Mouth Every other day Contact prescribing physician if questions or concerns Unchanged multivitamin with minerals (Multivitamin, Therapeutic w/ Minerals) 1 Tablets By Mouth Every day Contact prescribing physician if questions or concerns Unchanged mupirocin topical (mupirocin Top 2% Oint) 1 Application Topical 2 times a day apply a thin film neo affected areas Contact prescribing physician if questions or concerns Unchanged trazodone (traZODONE 50 mg Tab) 1 Tablets By Mouth Once a day (at bedtime) Contact prescribing physician if questions or concerns Unchanged triamcinolone topical (triamcinolone Top 0.1% Paste) 1 Application By Mouth 3 times a day Contact prescribing physician if questions or concerns Pharmacy Information [id number]: [address], [place] [id number] [phone] What How Much When Why Comments Stop Taking nystatin (nystatin 100,000 units/ mL Oral Susp) 5 Milliliter By Mouth Every 6 hours Non-smoker BMI 25.0-25.9,adult Oral thrush Duration: 7 Days retain in mouth as long as possible before swallowing Allergies Zolpidem Tartrate (sleep walking) Problems Ongoing - Any problem that you are currently receiving treatment for. 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 Cervical radiculopathy Chronic insomnia Chronic seasonal allergic rhinitis Constipation, chronic Family history of colonic polyps Fibromyalgia Generalized anxiety disorder Glaucoma Herpes simplex type 1 antibody positive History of colon polyps Hypersensitivity reaction at injection site Hypopigmented skin lesion IBS (irritable bowel syndrome) IFG (impaired fasting glucose) Lumbar radiculopathy Nasal sore Neuropathy of left foot Oral thrush Ovarian failure Pelvic pressure in female Personal history of colonic polyps Screening mammogram, encounter for Stomatitis, viral Stress incontinence Historical - Any problem that you are no longer receiving treatment for. Acute Eustachian salpingitis, right ear Anxiety Arthritis Chronic allergic rhinitis Eustachian tube dysfunction Herpes zoster High blood cholesterol Metatarsalgia of left foot Patient Survey You may receive a survey via text or e-mail asking about your office visit. Please share your experience with us by completing your survey. We appreciate your feedback and thank you for choosing us for your care. Education Materials Oral Thrush, Adult Oral thrush, also called oral candidiasis, is a fungal infection that develops in the mouth and throat and on the tongue. It causes white patches to form in the mouth and on the tongue. Many cases of thrush are mild, but this infection can also be serious. Thrush can be (more content not included)... Normal [facility] CHEMISTRYOrdered By: SYSTEM SYSTEM on 08-26-2023 Cobalamin (Vitamin B12) [Mass/Vol] pg/mL Normal 50 - 1500 pg/mL Remisol Chem Family Medicine Office/Clini c Noteon 08-26-2023 Family Medicine Office/Clinic Note Chief Complaint pt presents today cont c/o mouthsores x 2-3wks, seen at [facility] and gvn rx liquid mouthwash which has not been helpful History of Present Illness The patient presents for evaluation of mouth sores. Her mouth is continuing to give her lots of trouble. I had seen her approximately 2 weeks ago and felt that she possibly had viral stomatitis and had offered triamcinolone paste really did not feel that that was very beneficial. She had seen white covering on the tongue or the back of the mouth. Was seen by nurse practitioner at another office 3 days ago. Was provided with nystatin liquid but does not think it has been beneficial she thinks it is still there today. She denies any fevers or chills. She is not using any inhalers for her lungs. She has blisters on her gums, but it does not bother her. Her tongue is sensitive and sore. She thinks she has some B12 gummies does not routinely take them. Never been told that she had any deficiency.. She has not changed her toothpaste brand. Review of Systems PHQ Score Initial Depression Screen Score: 0 SCORE See HPI otherwise negative Physical Exam Vitals & Measurements HR: 67(Peripheral) RR: 16 BP: 120/80 SpO2: 98% HT: 62 in HT: 157 cm WT: 61.3 kg WT: 134.86 lb BMI: 24.87 The patient is adequately raised, well hydrated. Normocephalic, atraumatic. Wearing corrective lenses. Conjunctivae clear. TMs are clear. Nares with clear rhinorrhea. Oropharynx is relatively pink and moist. There is a fine white line on the buccal mucosa anteriorly that appears irritated, not ulcerated. There is some sensitivity on the tongue. It does appear more red, slightly swollen with a white coating, not specifically consistent with thrush and I do not appreciate anything on the posterior oropharynx. No tonsillar hypertrophy. Fair quinault dentition with repairs. Without palpable adenopathy. Dark skin tone is warm and dry. No rash or lesions on exposed surfaces. Cooperative. Assessment/Plan 1. Stomatitis, viral (K12.1: Other forms of stomatitis) Discussed with patient that this is most likely cause of the throat irritation mouth sores but if not responding with the topical triamcinolone paste would discontinue it. Continue with good oral hygiene suggest possibly brushing with Sensodyne to avoid irritating the mouth. Ordered: Current tobacco non-user 1036F Depression Screening Negative 3352F Discharge medications reconciled with current medications in outpatient record 1111F HBA1C <7.0 Most Recent Level 3044F Influenza immunization administered or previously received 4274F Lab Specimen Collect [id number] Most recent diastolic blood pressure 80-89 mm Hg 3079F Most recent LDL-C > or = 130 mg/dL 3050F Patient screen for fall risk: no falls in last year or 1 fall with no injury in last year 1101F Pneumonia Vax administered or previously received 4040F Systolic BP <130 mm Hg (Most Recent) 3074F Vitamin B12 Level 2. Oral thrush (B37.0: Candidal stomatitis) Possibility that thrush exists. Suggest she give a trial of clotrimazole troches. Discontinue the nystatin swish and swallow. Ordering vitamin B12 level today to see if she is low on this as this can cause tongue irritation. She is agreeable to initiate her vitamin B12 Gummies at home. If symptoms do not start to improve in the next week would give consideration Of using prednisone for possible lichen planus. Ordered: Current tobacco non-user 1036F Depression Screening Negative 3352F Discharge medications reconciled with current medications in outpatient record 1111F HBA1C <7.0 Most Recent Level 3044F Influenza immunization administered or previously received 4274F Lab Specimen Collect [id number] Most recent diastolic blood pressure 80-89 mm Hg 3079F Most recent LDL-C > or = 130 mg/dL 3050F Patient screen for fall risk: no falls in last year or 1 fall with no injury in last year 1101F Pneumonia Vax administered or previously received 4040F Systolic BP <130 mm Hg (Most Recent) 3074F Vitamin B12 Level Orders: clotrimazole, 10 mg = 1 lozenge(s), Oral, QID, X 7 day(s), # 28 lozenge(s), Refills(s) 0, Pharmacy: [id number], 157, cm, 08/26/23 9:54:00 EST, Height/Length Dosing, 61.3, kg, 08/26/23 9:54:00 EST, Weight Dosing Portions of this record may have been created with voice recognition artificial intelligence software, specifically [employer], [employer] and or [employer]. Substitutions may have occurred due to the inherent limitations of voice recognition and artificial intelligence software. 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 Normal [facility] Comment on above: Result Comment: Elec tronically Signed By: GISEL RAMIREZ, [place]\.br\Date and Time Signed: 08/26/23 12:58 EST Vit B12on 08-26-2023 Vitamin B12 Lvl >1500 Normal 50-1500 [facility] Comment on above: Performed By: #### 2 [id number] ####[facility] [id number] [place] [address] Patient Educationon 08-25-20 Patient Education Infectious Disease Oral Thrush, Adult Oral thrush, also called oral candidiasis, is a fungal infection that develops in the mouth and throat and on the tongue. It causes white patches to form in the mouth and on the tongue. Many cases of thrush are mild, but this infection can also be serious. Thrush can be a repeated (recurrent) problem for certain people who have a weak body defense system (immune system). The weakness can be caused by chronic illnesses, or by taking medicines that limit the body's ability to fight infection. If a person has difficulty fighting infection, the fungus that causes thrush can spread through the body. This can cause life-threatening blood or organ infections. What are the causes? This condition is caused by a fungus (yeast) called Ela albicans. ? This fungus is normally present in small amounts in the mouth and on other mucous membranes. It usually causes no harm. ? If conditions are present that allow the fungus to grow without control, it invades surrounding tissues and becomes an infection. ? Other Ela species can also lead to thrush, though this is rare. What increases the risk? The following factors may make you more likely to develop this condition: ? Having a weakened immune system. ? Being an older adult. ? Having diabetes, cancer, or HIV (human immunodeficiency virus). ? Having dry mouth (xerostomia). ? Being or . ? Having poor dental care, especially in those who have dentures. ? Using antibiotic or steroid medicines. What are the signs or symptoms? Symptoms of this condition can vary from mild and moderate to severe and persistent. Symptoms may include: ? A burning feeling in the mouth and throat. This can occur at the start of a thrush infection. ? White patches that stick to the mouth and tongue. The tissue around the patches may be red, raw, and painful. If rubbed (during tooth brushing, for example), the patches and the tissue of the mouth may bleed easily. ? A bad taste in the mouth or difficulty tasting foods. ? A cottony feeling in the mouth. ? Pain during eating and swallowing. ? Poor appetite. ? Cracking at the corners of the mouth. How is this diagnosed? This condition is diagnosed based on: ? A physical exam. ? Your medical history. How is this treated? This condition is treated with medicines called antifungals, which prevent the growth of fungi. These medicines are either applied directly to the affected area (topical) or swallowed (oral). The treatment will depend on the severity of the condition. ? Mild cases of thrush may be treated with an antifungal mouth rinse or lozenges. Treatment usually lasts about 14 days. ? Moderate to severe cases of thrush can be treated with oral antifungal medicine, if they have spread to the esophagus. A topical antifungal medicine may also be used. For some severe infections, treatment may need to continue for more than 14 days. ? Oral antifungal medicines are rarely used during because they may be harmful to the unborn child. If you are , talk with your health care provider about options for treatment. ? Persistent or recurrent thrush. For cases of thrush that do not go away or keep coming back: ? Treatment may be needed twice as long as the symptoms last. ? Treatment will include both oral and topical antifungal medicines. ? People with a weakened immune system can take an antifungal medicine on a continuous basis to prevent thrush infections. It is important to treat conditions that make a person more likely to get thrush, such as diabetes or HIV. Follow these instructions at home: Relieving soreness and discomfort To help reduce the discomfort of thrush: ? Drink cold liquids such as water or iced tea. ? Try flavored ice treats or frozen juices. ? Eat foods that are easy to swallow, such as gelatin, ice cream, or custard. ? Try drinking from a straw if the patches in your mouth are painful. General instructions ? Take or use [id number] and prescription medicines only as told by your health care provider. ? Eat plain, unflavored yogurt as directed by your health care provider. Check the label to make sure the yogurt contains live cultures. This yogurt can help healthy bacteria grow in the mouth and can stop the growth of the fungus that causes thrush. ? If you wear dentures, remove the dentures before going to bed, brush them vigorously, and soak them in a cleaning solution as directed by your health care provider. ? Rinse your mouth with a warm salt-water mixture several times a day. To make a salt-water mixture, dissolve ??1 tsp (3?6 g) of salt in 1 cup (237 mL) of warm water. Contact a health care provider if: ? Your symptoms are getting worse or are not improving within 7 days of starting treatment. ? You have symptoms of a spreading infection, such as white patches on the skin (more content not included)... [facility] Ambulatory Visit Summaryon 1 10-24-2022 Ambulatory Visit Summary DIANA GERARD :1955 Visit Date:08/23/2023 Ambulatory Visit Instructions Your Diagnosis Oral thrush Non-smoker BMI 25.0-25.9,adult Your Care Team Attending Physician - Pari Phillip Primary Care Physician - Marin BATRES MD This Is Your Medications List albuterol (Albuterol (Eqv-ProAir HFA) 90 mcg/inh inhalation aerosol) azelastine nasal (azelastine hydrochloride 137 mcg spray) cetirizine (cetirizine 10 mg Tab) latanoprost ophthalmic (latanoprost Opth 0.005% Louise) loratadine (loratadine 10 mg Tab) multivitamin with minerals (Multivitamin, Therapeutic w/ Minerals) mupirocin topical (mupirocin Top 2% Oint) nystatin (nystatin 100,000 units/mL Oral Susp) trazodone (traZODONE 50 mg Tab) triamcinolone topical (triamcinolone Top 0.1% Paste) Procedures Performed Colonoscopy (05/24/2022), Colonoscopy (05/24/2022), Appendectomy, Colonoscopy, EGD, Hysterectomy and unilateral salpingo-oophorectom y sample, Oophorectomy of remaining ovary, rectocele repair, RSO, UGI. Discharge Vitals Temperature (Tympanic) 36.8 ?C Heart Rate (Peripheral) 62 Respiratory Rate 14 Blood Pressure 118/70 Height 157 cm Height 62 in Weight 61.8 kg Weight 135.96 lb BMI 25.07 Medications What How Much When Why Instructions New nystatin (nystatin 100,000 units/ mL Oral Susp) 5 Milliliter By Mouth Every 6 hours Non-smoker BMI 25.0-25.9,adult Oral thrush Duration: 7 Days retain in mouth as long as possible before swallowing Pickup at [facility] Unchanged albuterol (Albuterol (Eqv-ProAir HFA) 90 mcg/ inh inhalation aerosol) 2 Puffs Inhalation Every 6 hours Unchanged azelastine nasal (azelastine hydrochloride 137 mcg spray) Unchanged cetirizine (cetirizine 10 mg Tab) 1 Tablets By Mouth Every day take 1 tablet by mouth once daily if needed for ALLERGY SYMPTOMS Unchanged latanoprost ophthalmic (latanoprost Opth 0.005% Louise) 1 Drops Ophthalmic Once a day (at bedtime) Unchanged loratadine (loratadine 10 mg Tab) 1 Tablets By Mouth Every other day Unchanged multivitamin with minerals (Multivitamin, Therapeutic w/ Minerals) 1 Tablets By Mouth Every day Unchanged mupirocin topical (mupirocin Top 2% Oint) 1 Application Topical 2 times a day apply a thin film neo affected areas Unchanged trazodone (traZODONE 50 mg Tab) 1 Tablets By Mouth Once a day (at bedtime) Unchanged triamcinolone topical (triamcinolone Top 0.1% Paste) 1 Application By Mouth 3 times a day Pharmacy Information [id number]: [address], [place] [phone] Allergies Zolpidem Tartrate (sleep walking) Problems Ongoing - Any problem that you are currently receiving treatment for. 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 Cervical radiculopathy Chronic insomnia Chronic seasonal allergic rhinitis Constipation, chronic Family history of colonic polyps Fibromyalgia Generalized anxiety disorder Glaucoma Herpes simplex type 1 antibody positive History of colon polyps Hypersensitivity reaction at injection site Hypopigmented skin lesion IBS (irritable bowel syndrome) IFG (impaired fasting glucose) Lumbar radiculopathy Nasal sore Neuropathy of left foot Oral thrush Ovarian failure Pelvic pressure in female Personal history of colonic polyps Screening mammogram, encounter for Stomatitis, viral Stress incontinence Historical - Any problem that you are no longer receiving treatment for. Acute Eustachian salpingitis, right ear Anxiety Arthritis Chronic allergic rhinitis Eustachian tube dysfunction Herpes zoster High blood cholesterol Metatarsalgia of left foot Patient Survey You may receive a survey via text or e-mail asking about your office visit. Please share your experience with us by completing your survey. We appreciate your feedback and thank you for choosing us for your care. [facility] Family Medicine Office/Clini c Noteon 08-23-2023 Family Medicine Office/Clinic Note HPI Staff Diana is a 68 year old female presenting for acute visit Onset: 1 month Pt states has blisters in mouth all over and tongue hurts. pt states the triamcinolone paste makes her gag and hasn't helped at all was prescribed by Dr Batres History of Present Illness pt presents today with continued pain of tongue and gums. Review of Systems PHQ Score Initial Depression Screen Score: 0 SCORE ROS - Provider Constitutional: no fever, no chills, no sweats, no fatigue Respiratory: no shortness of breath, no cough, no orthopnea, no wheezing. Cardiovascular: no chest pain, no palpitations, no edema. Neurologic: no headache, no dizziness, no numbness, no weakness. Physical Exam Vitals & Measurements T: 36.8 ?C(Tympanic) HR: 62(Peripheral) RR: 14 BP: 118/70 SpO2: 99% HT: 62 in HT: 157 cm WT: 61.8 kg WT: 135.96 lb BMI: 25.07 General: alert, no acute distress ENMT: oral mucosa moist, no pharyngeal erythema or exudate Cardiovascular: regular rate and rhythm, normal peripheral perfusion Respiratory: Lungs CTA, respirations non labored Extremities: no deformity, no trauma Neurological: oriented x 4, LOC appropriate for age, CN II-XII intact, motor strength equal & normal bilaterally, speech normal Assessment/Plan 1. Oral thrush (B37.0: Candidal stomatitis) pt has painful tongue and gums. has been using triamcinolone but she feels it is worse now instead of improving. white film noted on tongue. will send nystatin in. pt encouraged to call dentist if she does not have any improvement in a week. all questions answered. RTC as needed Ordered: nystatin, 500,000 unit(s) = 5 mL, Oral, q6hr, retain in mouth as long as possible before swallowing, X 7 day(s), # 140 mL, Refills(s) 0, Pharmacy: [id number], 157, cm, 08/23/23 13:12:00 EST, Height/Length Dosing, 61.8, kg, 08/23/23 13:12:00 EST,... 2. Non-smoker (Z78.9: Other specified health status) continue not smoking Ordered: nystatin, 500,000 unit(s) = 5 mL, Oral, q6hr, retain in mouth as long as possible before swallowing, X 7 day(s), # 140 mL, Refills(s) 0, Pharmacy: [facility], 157, cm, 08/23/23 13:12:00 EST, Height/Length Dosing, 61.8, kg, 08/23/23 13:12:00 EST,... 3. BMI 25.0-25.9,adult (Z68.25: Body mass index [BMI] 25.0-25.9, adult) BMI education complete Ordered: nystatin, 500,000 unit(s) = 5 mL, Oral, q6hr, retain in mouth as long as possible before swallowing, X 7 day(s), # 140 mL, Refills(s) 0, Pharmacy: [id number], 157, cm, 08/23/23 13:12:00 EST, Height/Length Dosing, 61.8, kg, 08/23/23 13:12:00 EST,... 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 Cervical radiculopathy Chronic insomnia Chronic seasonal allergic rhinitis Constipation, chronic Family history of colonic polyps Fibromyalgia Generalized anxiety disorder Glaucoma Herpes simplex type 1 antibody positive History of colon polyps Hypersensitivity reaction at injection site Hypopigmented skin lesion IBS (irritable bowel syndrome) IFG (impaired fasting glucose) Lumbar radiculopathy Nasal sore Neuropathy of left foot Oral thrush Ovarian failure Pelvic pressure in female Personal history of colonic polyps Screening mammogram, encounter for Stomatitis, viral Stress incontinence Historical Acute Eustachian salpingitis, right ear Anxiety Arthritis Chronic allergic rhinitis Eustachian tube dysfunction Herpes zoster High blood cholesterol Metatarsalgia of left foot Procedure/Surgical History Colonoscopy (05/24/2022), Colonoscopy (05/24/2022), Appendectomy, Colonoscopy, EGD, Hysterectomy and unilateral salpingo-oophorectom y sample, Oophorectomy of remaining ovary, rectocele repair, RSO, UGI. Medications Albuterol (Eqv-ProAir HFA) 90 mcg/inh inhalation aerosol, 2 puff(s), Inhalation, q6hr, 1 refills azelastine hydrochloride 137 mcg spray cetirizine 10 mg Tab, 10 mg= 1 tab(s), Oral, Daily latanoprost Opth 0.005% Louise, 1 drop(s), OPTH, Once a day (at bedtime) loratadine 10 mg Tab, 10 mg= 1 tab(s), Oral, Every other day Multivitamin, Therapeutic w/ Minerals, 1 tab(s), Oral, Daily mupirocin Top 2% Oint, 1 betty, Topical, BID nystatin 100,000 units/mL Oral Susp, 669821 unit(s)= 5 mL, Oral, q6hr traZODONE 50 mg Tab, 50 mg= 1 tab(s), Oral, Once a day (at bedtime), 1 refills triamcinolone Top 0.1% Paste, 1 betty, Oral, TID, 1 refills Allergies Zolpidem Tartrate (sleep walking) Social History Alcohol - Denies Alcohol Use, 05/04/2016 Employment/School Retired, 05/01/2021 Home/Environment Lives with Spouse., 05/01/2021 Substance Abuse - Denies Substance Abuse, 05/04/2016 Tobacco - Denies Tobacco Use, 05/04/2016 Never (less than 100 in lifetime) Tobacco Use:. Never Smokeless Tobacco Use:. Household tobacco concerns: No., 08/23/2023 Family History Diabetes mellitus type 2: Mother, Sister and Brother. Pancreatic (more content not included)... [facility] Comment on above: Result Comment: Elec tronically Signed By: Pari Phillip\.br\Date and Time Signed: 08/23/23 13:28 EST Ambulatory Visit Summaryon 1 10-10-2022 Ambulatory Visit Summary DIANA GERARD :1955 Visit Date:08/09/2023 Ambulatory Visit Instructions Your Diagnosis Stomatitis, viral Chronic insomnia Your Care Team Attending Physician - Marin BATRES MD Primary Care Physician - Marin BATRES MD This Is Your Medications List triamcinolone topical (triamcinolone Top 0.1% Paste) zolpidem (zolpidem 10 mg Tab) Contact prescribing physician if questions or concerns acyclovir (acyclovir 800 mg Tab) albuterol (Albuterol (Eqv-ProAir HFA) 90 mcg/inh inhalation aerosol) azelastine nasal (azelastine hydrochloride 137 mcg spray) cetirizine (cetirizine 10 mg Tab) latanoprost ophthalmic (latanoprost Opth 0.005% Louise) loratadine (loratadine 10 mg Tab) multivitamin with minerals (Multivitamin, Therapeutic w/ Minerals) mupirocin topical (mupirocin Top 2% Oint) Procedures Performed Colonoscopy (05/24/2022), Colonoscopy (05/24/2022), Appendectomy, Colonoscopy, EGD, Hysterectomy and unilateral salpingo-oophorectom y sample, Oophorectomy of remaining ovary, rectocele repair, RSO, UGI. Discharge Vitals Heart Rate (Peripheral) 77 Respiratory Rate 16 Blood Pressure 134/80 Height 157 cm Height 62 in Weight 61 kg Weight 134.2 lb BMI 24.75 What to do next You Need to Schedule the Following Appointments Follow Up with GISEL RAMIREZ, ELLEN Saba When: Only if needed Where: Medications What How Much When Why Instructions New triamcinolone topical (triamcinolone Top 0.1% Paste) 1 Application By Mouth 3 times a day Refills: 1 Pickup at [facility] New zolpidem (zolpidem 10 mg Tab) 1 Tablets By Mouth Once a day (at bedtime) as needed for for sleep Chronic insomnia do not crush or chew Pickup at [facility] Unchanged acyclovir (acyclovir 800 mg Tab) 1 Tablets By Mouth 5 times a day Take one tab daily for 5 days with onset of blisters on mouth. Refills are for future out breaks Contact prescribing physician if questions or concerns Unchanged albuterol (Albuterol (Eqv-ProAir HFA) 90 mcg/ inh inhalation aerosol) 2 Puffs Inhalation Every 6 hours Contact prescribing physician if questions or concerns Unchanged azelastine nasal (azelastine hydrochloride 137 mcg spray) Contact prescribing physician if questions or concerns Unchanged cetirizine (cetirizine 10 mg Tab) 1 Tablets By Mouth Every day take 1 tablet by mouth once daily if needed for ALLERGY SYMPTOMS Contact prescribing physician if questions or concerns Unchanged latanoprost ophthalmic (latanoprost Opth 0.005% Louise) 1 Drops Ophthalmic Once a day (at bedtime) Contact prescribing physician if questions or concerns Unchanged loratadine (loratadine 10 mg Tab) 1 Tablets By Mouth Every other day Contact prescribing physician if questions or concerns Unchanged multivitamin with minerals (Multivitamin, Therapeutic w/ Minerals) 1 Tablets By Mouth Every day Contact prescribing physician if questions or concerns Unchanged mupirocin topical (mupirocin Top 2% Oint) 1 Application Topical 2 times a day apply a thin film neo affected areas Contact prescribing physician if questions or concerns Pharmacy Information [id number]: [address], [place] [phone] Allergies Zolpidem Tartrate (sleep walking) Problems Ongoing - Any problem that you are currently receiving treatment for. 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, adult Cervical radiculopathy Chronic seasonal allergic rhinitis Cold sore Constipation, chronic Family history of colonic polyps Fibromyalgia Generalized anxiety disorder Glaucoma Herpes simplex type 1 antibody positive History of colon polyps Hypersensitivity reaction at injection site Hypopigmented skin lesion IBS (irritable bowel syndrome) IFG (impaired fasting glucose) Lumbar radiculopathy Nasal sore Neuropathy of left foot Ovarian failure Pelvic pressure in female Personal history of colonic polyps Screening mammogram, encounter for Stomatitis, viral Stress incontinence Historical - Any problem that you are no longer receiving treatment for. Acute Eustachian salpingitis, right ear Anxiety Arthritis Chronic allergic rhinitis Eustachian tube dysfunction Herpes zoster High blood cholesterol Metatarsalgia of left foot Patient Survey You may receive a survey via text or e-mail asking about your office visit. Please share your experience with us by completing your survey. We appreciate your feedback and thank you for choosing us for your care. Education Materials Oral Mucositis Oral mucositis is a mouth condition that may develop as a result of treatments for cancer. Sores may appear on the lips, gums, tongue, throat, and the top (roof) or bottom (floor) of the mouth. What are the causes? This condition is caused when cancer treatments damage the lining of the mouth. This condition can happen to anyone who is being treated with cancer therapies, includin (more content not included)... [facility] Family Medicine Office/Clini c Noteon 08-09-2023 Family Medicine Office/Clinic Note Chief Complaint pt presents tonight c/o blisters in mouth x 2wks, hair loss, increased arthritic pain. admits to being under a lot of stress/grieving of late with the recent loss of 2 brothers and a niece History of Present Illness The patient is here with blisters in the mouth. She has sores in her mouth. Primarily on the soft buccal mucosa near the front upper and lower dentition. Present for about 2 weeks. She has not changed her toothpaste recently. She is eating and drinking normally. Has not had any recent dental work. Denies fevers chills. She has difficulty sleeping. This has been going on for several months. Her oldest brother recently very sudden and that has been difficult to process. Her niece after a very complicated several month long hospitalization with amputations and sepsis. She also has a sister that moved a very disabled brother from [place] to a local apartment , unfortunately that sisters he is not providing any of his care the patient finds that she is taking most meals to him daily and providing his assistance. He is blind and has had amputations so really has no access to get out and cannot cook for himself. She is too tired and worn out. Admits that she does feel little bit depressed but does not wish to start any medications. She defers counseling at this time. She has used Ambien in the past. I did review the chart after she left and find that she had problems with sleepwalking with this medication. Review of Systems PHQ Score Initial Depression Screen Score: 2 SCORE See HPI otherwise negative Physical Exam Vitals & Measurements HR: 77(Peripheral) RR: 16 BP: 134/80 SpO2: 98% HT: 62 in HT: 157 cm WT: 61 kg WT: 134.2 lb BMI: 24.75 The patient is adequately groomed, reasonably hydrated. Normocephalic, atraumatic. Wearing corrective lenses. Does have some mild conjunctival injection from tearfulness. Grossly normal hearing. Inside the oropharynx, fair quinault dentition, but there are some ulcer type abrasions on the mucosal surfaces beside the lower and upper dentition. Nothing on the tongue or the posterior oropharynx. Without adenopathy. Clear. Regular rate and rhythm. No murmur, gallop, or rub. She is tearful, she has good insight, but is certainly showing signs of depressed mood. There is no psychomotor agitation. Assessment/Plan 1. Stomatitis, viral (K12.1: Other forms of stomatitis) Reviewed with patient the likely viral etiology. Generally this is best treated with symptomatic care antibiotics are not particularly useful as I do not see any associated cellulitis. Agreeable to a trial of topical triamcinolone paste. Oropharyngeal hygiene discussed. Will likely improve within the week. Avoid anything spicy or citrus Ordered: Current tobacco non-user 1036F Depression Screening Negative 3352F Discharge medications reconciled with current medications in outpatient record 1111F HBA1C <7.0 Most Recent Level 3044F Influenza immunization administered or previously received 4274F Most recent diastolic blood pressure 80-89 mm Hg 3079F Most recent LDL-C > or = 130 mg/dL 3050F Patient screen for fall risk: no falls in last year or 1 fall with no injury in last year 1101F Pneumonia Vax administered or previously received 4040F Systolic BP 130-139 mm Hg (Most Recent) 3075F 2. Chronic insomnia, (F51.04: Psychophysiologic insomnia)Chronic insomnia Initially prescribed with using this in the past she had not recalled that she had problems with sleepwalking Ambien but realized after patient left therefore do not suggest using it and instead will use trazodone at bed. Continue good sleep hygiene. 3. Generalized anxiety disorder (F41.1: Generalized anxiety disorder) Defers medication to quell her general anxiety at this time but agreeable to a sleep aid see above. May give consideration to counseling and treatment if necessary 4. Caregiver stress (Z63.6: Dependent relative needing care at home) A lengthy discussion ensued regarding how this is affecting her mental and physical health. Suggesting she consider contacting the area agency on aging and possible Meals on Wheels for her brother. She was very appreciative. Orders: trazodone, 50 mg = 1 tab(s), Oral, Once a day (at bedtime), # 30 tab(s), Refills(s) 1, Pharmacy: [facility], 157, cm, 08/09/23 18:53:00 EST, Height/Length Dosing, 61, kg, 08/09/23 18:53:00 EST, Weight Dosing triamcinolone topical, 1 betty, Oral, TID, 5 gram, Refill(s) 1, [facility], 157, cm, 08/09/23 18:53:00 EST, Height/Length Dosing, 61, kg, 08/09/23 18:53:00 EST, Weight Dosing Portions of this record may have been created with voice recognition artificial intelligence software, specifically [employer] and or [employer]. Substitutions may have occurred due to the inherent limitations of voice recognition and artificial intelligence software. Follow-up With When Contact Information Chip BATRES MD (more content not included)... [facility] Comment on above: Result Comment: Elec silvestreally Signed By: Marin BATRES MD\.br\Date and Time Signed: 08/09/23 21:27 EST Patient Educationon 08-09-20 Patient Education Oncology Oral Mucositis Oral mucositis is a mouth condition that may develop as a result of treatments for cancer. Sores may appear on the lips, gums, tongue, throat, and the top (roof) or bottom (floor) of the mouth. What are the causes? This condition is caused when cancer treatments damage the lining of the mouth. This condition can happen to anyone who is being treated with cancer therapies, including: ? Cancer medicines (chemotherapy) or targeted therapy. ? Radiation therapy. ? Bone marrow transplants and stem cell transplants. Oral mucositis is not caused by infection. However, the sores can become infected after they form. Infection can make oral mucositis worse. What increases the risk? The following factors may make you more likely to develop this condition: ? Having cancers that primarily affect the blood, head, or neck. ? Receiving radiation therapy alone, or in combination with chemotherapy, to the head and neck region. ? Undergoing high dose chemotherapy alone or as part of bone marrow or stem cell transplant. In addition, there are other risks, including: ? Having poor oral hygiene, dental problems or oral diseases. ? Wearing dentures that do not fit correctly. ? Having other medical conditions, such as diabetes, HIV, AIDS, or kidney disease. ? Using products that contain nicotine or tobacco, such as cigarettes, chewing tobacco, and e-cigarettes. ? Not drinking enough clear fluids. ? Drinking alcohol. What are the signs or symptoms? Symptoms of this condition include: ? Mouth sores. These sores may bleed. ? Color changes inside the mouth. Red, shiny areas may appear. ? White patches or pus in the mouth. ? Pain in the mouth and throat. This can make it painful to speak and swallow. ? Dryness and a burning feeling in the mouth. ? Saliva that is thick. ? Trouble eating, drinking, and swallowing. This can lead to weight loss. Symptoms of this condition can vary from mild to severe. Symptoms are usually seen 7?10 days after cancer treatment has started. How is this diagnosed? This condition can be diagnosed with a physical exam. In some cases, lab tests or cultures may be done to check for an associated infection. How is this treated? Treatment depends on the severity of the condition. Oral mucositis often heals on its own. Sometimes, changes in the cancer treatment can help. Treatment may include medicines or therapies, such as: ? An antibiotic medicine to fight infection. ? Medicine or therapies that help the cells in your mouth heal more quickly. ? Chewing on ice before treatment to help prevent mucositis. Medicine may also be given to help control pain. This may include: ? Pain relievers that are swished around in the mouth (topical anesthetics). These make the mouth numb to ease the pain. ? Mouth rinses. ? Prescribed, medicated gels. The gel coats the mouth. This protects nerve endings and lessens the pain. ? Pain medicines. Follow these instructions at home: Medicines ? Take or apply [id number] and prescription medicines only as told by your health care provider. ? If you were prescribed an antibiotic medicine, take or apply it as told by your health care provider. Do not stop using the antibiotic even if you start to feel better. ? Do not use products that contain benzocaine, including numbing gels, to treat mouth pain in children who are younger than 2 years. These products may cause a rare but serious blood condition. Eating and drinking ? Talk to a diet and wind farm support specialist (dietitian) about what you should eat and drink if you have mucositis. ? Drink high-nutrition and high-calorie shakes or supplements. ? Eat bland and soft foods that are easy to eat. ? Drink enough fluid to keep your urine pale yellow. ? Do not eat foods that are hot, spicy, citrus, or hard to swallow. ? Do not drink alcohol. ? Try sucking on ice chips or sugar-free frozen pops. This may help with pain. This also keeps your mouth moist. Lifestyle ? Keep your mouth clean and germ-free. To maintain good oral hygiene: ? Humphrey your teeth carefully with a soft toothbrush at least two times each day. Use a gentle toothpaste. Ask your health care provider to recommend the right toothpaste for you. ? Use a soft sponge (oral swab) to clean your mouth and teeth instead of a toothbrush if mouth sores are severe. ? Floss your teeth every day. ? Have your teeth cleaned regularly as recommended by your dentist. ? Rinse your mouth after every meal or as directed by your health care provider. Do not use mouthwash that contains alcohol. Ask your health care provider for a mouthwash or mouth rinse recommendation. ? Do not use any products that contain nicotine or tobacco, such as cigarettes, e-cigarettes, and chewing tobacco. If you need help quitting, ask your health care provider. Genera (more content not included)... Normal [facility] Anabel 06-18-2023 ALT No additional P-5'-P [Catalytic activity/Vol] 23 Int._Unit/L Normal 6-46 [facility] Comment on above: Performed By: #### 2 107707, 0839510, 4543319, 9702637, 5834392, [id number] ####[facility] [address] [place] [address] Rudi 06-18-2023 AST [Catalytic activity/Vol] 27 Int._Unit/L Normal 5-43 [facility] Comment on above: Performed By: #### 2 326354, 7664986, 7001068, 5378057, 3201987, 65186364 ####[facility] [address] [place] [address] BMPon 06-18-2023 Anion gap [Moles/Vol] 14 mmol/L Normal 6-16 [facility] Comment on above: Performed By: #### 2 215946, 4690880, 1423345, 7602915, 1576344, 21557128 ####[facility] [address] [place] [address] Calcium [Mass/Vol] 9.7 mg/dL Normal 8.9-11.1 [facility] Comment on above: Performed By: #### 2 794988, 2561334, 1260592, 8837481, 1073537, 75594058 ####[facility] [address] [place] [address] Chloride [Moles/Vol] 106 mmol/L Normal 101-111 [facility] Comment on above: Performed By: #### 2 661365, 0199219, 1010253, 2013794, 4438898, 97470752 ####[facility] [address] [place] [address] CO2 [Moles/Vol] 26 mmol/L Normal 21-31 [facility] Comment on above: Performed By: #### 2 901887, 9089954, 8436026, 9291431, 2493926, 09066665 ####[facility] [address] [place] [address] Creatinine [Mass/Vol] 0.8 mg/dL Normal 0.5-1.3 [facility] Comment on above: Performed By: #### 2 872369, 5773590, 1795022, 5471826, 1052169, 00617062 ####[facility] [address] [place] [address] Glucose [Mass/Vol] 101 mg/dL Normal 55-199 [facility] Comment on above: Result Comment: If t his glucose result represents a fasting glucose, interpretation should refer to the following reference range: 55-99 mg/dL Performed By: #### 2 508060, 9386267, 2848483, 9585194, 6330508, 38755004 ####[facility] [address] [place] [address] Potassium [Moles/Vol] 4.4 mmol/L Normal 3.5-5.3 [facility] Comment on above: Performed By: #### 2 678520, 0678240, 4234222, 3469793, 6781143, 34671119 ####[facility] [address] [place] [address] Sodium [Moles/Vol] 142 mmol/L Normal 135-145 [facility] Comment on above: Performed By: #### 2 848389, 5363148, 2217831, 6392119, 1836877, 10807442 ####[facility] [address] [place] [address] Urea nitrogen [Mass/Vol] 19 mg/dL Normal 5-21 [facility] Comment on above: Performed By: #### 2 561473, 9639398, 2946293, 6541695, 9230788, 81776356 ####[facility] [address] [place] [address] Urea nitrogen/Creatinine [Mass ratio] 24 No Units High - [facility] Comment on above: Performed By: #### 2 951503, 1924217, 8575282, 8189247, 5734829, 52567260 ####[facility] [address] [place] [address] CBC w/Indiceson 06-18-2023 Erythrocyte distribution width (RBC) [Ratio] 13.0 % Normal 10.9-14.2 [facility] Comment on above: Performed By: #### 2 672540, 0945344, 2849659, 0162004, 9957027, 14761905 ####[facility] [address] [place] [address] Hematocrit (Bld) [Volume fraction] 38.7 % Normal 34.0-46.0 [facility] Comment on above: Performed By: #### 2 134768, 5719829, 8556988, 2046401, 4390351, 99623832 ####[facility] [address] [place] [address] Hemoglobin (Bld) [Mass/Vol] 13.2 g/dL Normal 12.0-16.0 [facility] Comment on above: Performed By: #### 2 698560, 9707738, 9452246, 6501804, 3513353, 64617645 ####[facility] [address] [place] [address] MCH (RBC) [Entitic mass] 30.9 pg Normal 27.0-34.0 [facility] Comment on above: Performed By: #### 2 458014, 5675573, 6565966, 6175780, 3233145, 42660242 ####[place] [id number] MCHC (RBC) [Mass/Vol] 34.2 g/dL Normal 31.4-36.0 [facility] Comment on above: Performed By: #### 2 192246, 2725044, 4970658, 7225690, 4153972, 47993859 ####[place] [id number] MCV (RBC) [Entitic vol] 90.1 fL Normal 80.0-100.0 [facility] Comment on above: Performed By: #### 2 592314, 7324244, 5888382, 1282823, 3338520, 01596005 ####[place] [id number] Platelet mean volume (Bld) [Entitic vol] 7.9 fL Normal 6.4-10.8 [facility] Comment on above: Performed By: #### 2 613665, 9091573, 4553592, 4435262, 7525974, 13956050 ####[place] [id number] Platelets (Bld) [#/Vol] 315.0 E9/L Normal 150.0-500.0 [facility] Comment on above: Performed By: #### 2 605795, 8642794, 9557408, 8933536, 9156489, 70810321 ####[place] [address] RBC (Bld) [#/Vol] 4.3 E12/L Normal 4.3-5.9 [facility] Comment on above: Performed By: #### 2 189640, 6447621, 2391986, 8163009, 2381212, 05915500 ####[address] [address] WBC corrected for nucl RBC Auto (Bld) [#/Vol] 6.0 E9/L Normal 4.0-11.0 [facility] Comment on above: Performed By: #### 2 583920, 7195238, 8907005, 6242597, 5975119, 55648835 ####[facility] [address] [place] [address] Consenton 06-18-2023 Consent [id number] 8#1.00TIFF Normal [facility] Lipid Panelon 06-18-2023 Cholesterol [Mass/Vol] 235 mg/dL High 120-200 [facility] Comment on above: Performed By: #### 2 517104, 1534831, 4737328, 4620680, 3587004, 04180309 ####[facility] [address] [place] [address] Cholesterol in HDL [Mass/Vol] 62 mg/dL Invalid Interpretation Code [facility] Comment on above: Result Comment: HDL > or equal to 60 mg/dL: Low cardiovascular risk HDL < 40 mg/dL : High cardiovascular risk Performed By: #### 2 817215, 5834036, 0922451, 5086360, 0596895, 98018154 ####[facility] [address] [place] [address] Cholesterol in LDL [Mass/Vol] 136 mg/dL High <=129 [facility] Comment on above: Performed By: #### 2 892640, 3458309, 2358373, 8899107, 7086539, 78556796 ####[facility] [address] [place] [address] Cholesterol in VLDL [Mass/Vol] 34 mg/dL Normal 7-40 [facility] Comment on above: Performed By: #### 2 569987, 4778603, 8911595, 6942822, 5694670, 89861298 ####[facility] [address] [place] [address] Triglyceride [Mass/Vol] 168 mg/dL High <=149 [facility] Comment on above: Performed By: #### 2 181283, 1503072, 0419347, 2464925, 5866596, 81417018 ####[facility] [address] [place] [address] eGFRon 06-18-2023 GFR/1.73 sq M.predicted among non-blacks MDRD (S/P/Bld) [Vol rate/Area] 80 mL/min/1.73 m2 Normal >=59 [facility] Comment on above: Order Comment: Order added by Discern Expert. Result Comment: [employer] Hand abel kidney disease could be indicated at eGFR's of less than 60 mL/min/1.73m2. Kidney failure is indicated at less than 15 mL/min/1.73m2. Performed By: #### 2 513884, 9603578, 4241796, 6444572, 0013367, 26352145 ####[facility] [address] [place] [address] Physician Referralon 023 Physician Referral [id number] 8#1.00TIFF Normal [facility] Pathology Noteon 06-07-2023 Pathology Note [id number] #1.00TIFF Normal [facility] Ambulatory Visit Summaryon 1 Ambulatory Visit Summary DIANA GERARD Jeferson :1955 Visit Date:06/06/2023 Ambulatory Visit Instructions Your Diagnosis Lumbar radiculopathy Fibromyalgia Neuropathy of left foot Hypersensitivity reaction at injection site Unspecified adverse effect of drug or medicament, initial encounter Your Care Team Attending Physician - Marin BATRES MD Primary Care Physician - Marin BATRES MD This Is Your Medications List acyclovir (acyclovir 800 mg Tab) albuterol (Albuterol (Eqv-ProAir HFA) 90 mcg/inh inhalation aerosol) azelastine nasal (azelastine hydrochloride 137 mcg spray) cetirizine (cetirizine 10 mg Tab) latanoprost ophthalmic (latanoprost Opth 0.005% Louise) loratadine (loratadine 10 mg Tab) multivitamin with minerals (Multivitamin, Therapeutic w/ Minerals) mupirocin topical (mupirocin Top 2% Oint) Procedures Performed Colonoscopy (05/24/2022), Colonoscopy (05/24/2022), Appendectomy, Colonoscopy, EGD, Hysterectomy and unilateral salpingo-oophorectom y sample, Oophorectomy of remaining ovary, rectocele repair, RSO, UGI. Discharge Vitals Heart Rate (Peripheral) 76 Respiratory Rate 16 Blood Pressure 138/80 Height 157 cm Height 62 in Weight 60.1 kg Weight 132.22 lb BMI 24.38 What to do next You Need to Schedule the Following Appointments Follow Up with GISEL RAMIREZ, ELLEN Saba When: Only if needed Comments: staff call DR Robert felix I need biopsy report from her leg ? done approximately 1-2 montsh ago ? any labs also? Where: Medications What How Much When Instructions Unchanged acyclovir (acyclovir 800 mg Tab) 1 Tablets By Mouth 5 times a day Take one tab daily for 5 days with onset of blisters on mouth. Refills are for future out breaks Unchanged albuterol (Albuterol (Eqv-ProAir HFA) 90 mcg/ inh inhalation aerosol) 2 Puffs Inhalation Every 6 hours Unchanged azelastine nasal (azelastine hydrochloride 137 mcg spray) Unchanged cetirizine (cetirizine 10 mg Tab) 1 Tablets By Mouth Every day take 1 tablet by mouth once daily if needed for ALLERGY SYMPTOMS Unchanged latanoprost ophthalmic (latanoprost Opth 0.005% Louise) 1 Drops Ophthalmic Once a day (at bedtime) Unchanged loratadine (loratadine 10 mg Tab) 1 Tablets By Mouth Every other day Unchanged multivitamin with minerals (Multivitamin, Therapeutic w/ Minerals) 1 Tablets By Mouth Every day Unchanged mupirocin topical (mupirocin Top 2% Oint) 1 Application Topical 2 times a day apply a thin film neo affected areas Allergies Zolpidem Tartrate (sleep walking) Problems Ongoing - Any problem that you are currently receiving treatment for. 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, adult Cervical radiculopathy Chronic seasonal allergic rhinitis Cold sore Constipation, chronic Family history of colonic polyps Fibromyalgia Generalized anxiety disorder Glaucoma Herpes simplex type 1 antibody positive History of colon polyps Hypersensitivity reaction at injection site Hypopigmented skin lesion IBS (irritable bowel syndrome) IFG (impaired fasting glucose) Lumbar radiculopathy Nasal sore Neuropathy of left foot Ovarian failure Pelvic pressure in female Personal history of colonic polyps Screening mammogram, encounter for Stress incontinence Historical - Any problem that you are no longer receiving treatment for. Acute Eustachian salpingitis, right ear Anxiety Arthritis Chronic allergic rhinitis Eustachian tube dysfunction Herpes zoster High blood cholesterol Metatarsalgia of left foot [employer] Lumbosacral Radiculopathy Lumbosacral radiculopathy is a condition that involves the spinal nerves and nerve roots in the low back and bottom of the spine. The condition develops when these nerves and nerve roots move out of place or become inflamed and cause symptoms. What are the causes? This condition may be caused by: ? Pressure from a disk that bulges out of place (herniated disk). A disk is a plate of soft cartilage that separates bones in the spine. ? Disk changes that occur with age (disk degeneration). ? A narrowing of the bones of the lower back (spinal stenosis). ? A tumor. ? An infection. ? An injury that places sudden pressure on the disks that cushion the bones of your lower spine. What increases the risk? You are more likely to develop this condition if: ? You are a male who is 30?50 years old. ? You are a female who is 50?60 years old. ? You use improper technique when lifting things. ? You are overweight or live a sedentary lifestyle. ? You smoke. ? Your work requires frequent lifting. ? You do repetitive activities that strain the spine. What are the signs or symptoms? Symptoms of this condition include: ? Pain that goes down from your back into your legs (sciatica), usually on one side of the body. This is the most common symptom. The pain may be worse when you sit, cough, o (more content not included)... Normal [facility] Family Medicine Office/Clini c Noteon 06-06-2023 Family Medicine Office/Clinic Note Chief Complaint 6mo chk up, not fasting, no rfs, discuss ? dx of RA, got flu vacc at ra/w last wk and still has tennis ball size lump/swelling at injection site History of Present Illness HISTORY OF PRESENT ILLNESS The patient is here for general checkup. She went to Dr. Jones of podiatry, who told her that she could have neuropathy in her left leg and advised her to see her doctor because it is more likely related to rheumatoid arthritis than anything else. She is uncertain if she had lab tests done although Dr. Jones called after 2 weeks and told her that she had more rheumatoid arthritis. Tells me that she did have a biopsy of the left lower extremity. She has not been on gabapentin or Neurontin for the neuropathy in her legs recently. She has numbness in her foot throughout the dorsum and the lateral side worst.. Dr. Jones did suggest her to go to a chiropractor, but she has been trying to call and left messages. Her right side lumbar low back has been hurting more recently. Has not had any injections in the spine with pain management. She went to the hospital 2 years ago because her back was really bothering her. She has slowed down and started walking. I reviewed her MRI from 2016 that did show neuroforaminal narrowing on the left at L5 moderate in nature. There is also spondylolisthesis and multiple disc protrusions. She denies any acute urinary incontinence or bowel change. Review of Systems PHQ Score Initial Depression Screen Score: 0 See HPI otherwise negative Physical Exam Vitals & Measurements HR: 76(Peripheral) RR: 16 BP: 138/80 SpO2: 98% HT: 62 in HT: 157 cm WT: 60.1 kg WT: 132.22 lb BMI: 24.38 PHYSICAL EXAM The patient is adequately groomed, well hydrated. Eyes clear. Pupils are symmetric, wearing corrective lenses. Grossly normal hearing. Supple. Range of motion of the cervical spine within normal limits but tender on the posterior aspect. Auscultation of the lungs clear bilaterally. Regular rate and rhythm. No murmur, gallop, or rub. Short stature. Definitely tender along the paraspinal musculature of the lumbosacral spine, right side greater than left. Flexion forward is uncomfortable. Dark skin tones. Left upper arm has slight swelling at injection site, no longer erythematous, a bit tender to touch. Nonfluctuant. Cooperative and siteful. The DTRs are +1 at the ankles, left knee not reproducible. Right knee +1. Strength with hip flexion, knee extension and flexion, ankle flexion, dorsiflexion all within normal limits. She is able to ambulate on heels and on metatarsal heads without difficulty. No obvious tremors. Assessment/Plan 1. Lumbar radiculopathy (M54.16: Radiculopathy, lumbar region) I believe that lumbar radiculopathy is her main source of the issue here. I would like to see the biopsy report from podiatry to determine if there is actually some type of neuropathy found that would need evaluation with neurology such as EMG. Did discuss the potential for repeat MRI but insurance may require return to physical therapy. I will await the biopsy results and then determine further 2. Fibromyalgia (M79.7: Fibromyalgia) Reviewed with patient that she does chronically have myofascial pain and oftentimes that can mimic radiculopathy and neuropathy. 3. Neuropathy of left foot (G57.92: Unspecified mononeuropathy of left lower limb) See problem #1. 4. Hypersensitivity reaction at injection site (T80.89XA: Other complications following infusion, transfusion and therapeutic injection, initial encounter) Reassurance provided that this does not appear infected at this time and would simply observe. Portions of this record may have been created with voice recognition artificial intelligence software, specifically [employer] and or [employer]. Substitutions may have occurred due to the inherent limitations of voice recognition and artificial intelligence software. Follow-up With When Contact Information Marin BATRES MD, [facility] Only if needed Additional Instructions: staff call DR Jones ofrebecca I need biopsy report from her leg ? done approximately 1-2 montsh ago ? any labs also? Patient Education Lumbosacral Radiculopathy Myofascial Pain Syndrome and Fibromyalgia Problem List/Past Medical History Ongoing 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, adult Cervical radiculopathy Chronic seasonal allergic rhinitis Cold sore Constipation, chronic Family history of colonic polyps Fibromyalgia Generalized anxiety disorder Glaucoma Herpes simplex type 1 antibody positive History of colon polyps Hypersensitivity reaction at injection site Hypopigmented skin lesion IBS (irritable bowel syndrome) IFG (impaired fasting glucose) Lumbar radiculopathy Nasal sore Neuropathy of left foot Ovarian failure Pelvic pressure in female Personal history of colonic polyps Screening mammogram, encounter for Stress incontinence Historical Acute Eustachian salpingitis, (more content not included)... Normal [facility] Comment on above: Result Comment: Elec tronically Signed By: Marin BATRES MD\.br\Date and Time Signed: 06/06/23 13:24 EDT Patient Educationon 06-06-20 Patient Education Mental and Behavioral Health Myofascial Pain Syndrome and Fibromyalgia Myofascial pain syndrome and fibromyalgia are both pain disorders. You may feel this pain mainly in your muscles. ? Myofascial pain syndrome: ? Always has tender points in the muscles that will cause pain when pressed (trigger points). The pain may come and go. ? Usually affects your neck, upper back, and shoulder areas. The pain often moves into your arms and hands. ? Fibromyalgia: ? Has muscle pains and tenderness that come and go. ? Is often associated with tiredness (fatigue) and sleep problems. ? Has trigger points. ? Tends to be long-lasting (chronic), but is not life-threatening. Fibromyalgia and myofascial pain syndrome are not the same. However, they often occur together. If you have both conditions, each can make the other worse. Both are common and can cause enough pain and fatigue to make day-to-day activities difficult. Both can be hard to diagnose because their symptoms are common in many other conditions. What are the causes? The exact causes of these conditions are not known. What increases the risk? You are more likely to develop either of these conditions if: ? You have a family history of the condition. ? You are female. ? You have certain triggers, such as: ? Spine disorders. ? An injury (trauma) or other physical stressors. ? Being under a lot of stress. ? Medical conditions such as osteoarthritis, rheumatoid arthritis, or lupus. What are the signs or symptoms? Fibromyalgia The main symptom of fibromyalgia is widespread pain and tenderness in your muscles. Pain is sometimes described as stabbing, shooting, or burning. You may also have: ? Tingling or numbness. ? Sleep problems and fatigue. ? Problems with attention and concentration (fibro fog). Other symptoms may include: ? Bowel and bladder problems. ? Headaches. ? Vision problems. ? Sensitivity to odors and noises. ? Depression or mood changes. ? Painful menstrual periods (dysmenorrhea). ? Dry skin or eyes. These symptoms can vary over time. Myofascial pain syndrome Symptoms of myofascial pain syndrome include: ? Tight, ropy bands of muscle. ? Uncomfortable sensations in muscle areas. These may include aching, cramping, burning, numbness, tingling, and weakness. ? Difficulty moving certain parts of the body freely (poor range of motion). How is this diagnosed? This condition may be diagnosed by your symptoms and medical history. You will also have a physical exam. In general: ? Fibromyalgia is diagnosed if you have pain, fatigue, and other symptoms for more than 3 months, and symptoms cannot be explained by another condition. ? Myofascial pain syndrome is diagnosed if you have trigger points in your muscles, and those trigger points are tender and cause pain elsewhere in your body (referred pain). How is this treated? Treatment for these conditions depends on the type that you have. ? For fibromyalgia a healthy lifestyle is the most important treatment including aerobic and strength exercises. Different types of medicines are used to help treat pain and include: ? NSAIDs. ? Medicines for treating depression. ? Medicines that help control seizures. ? Medicines that relax the muscles. ? Treatment for myofascial pain syndrome includes: ? Pain medicines, such as NSAIDs. ? Cooling and stretching of muscles. ? Massage therapy with myofascial release technique. ? Trigger point injections. Treating these conditions often requires a team of health care providers. These may include: ? Your primary care provider. ? A physical therapist. ? Complementary health care providers, such as massage therapists or acupuncturists. ? A psychiatrist for cognitive behavioral therapy. Follow these instructions at home: Medicines ? Take hpll-flt-wujugtk and prescription medicines only as told by your health care provider. ? Ask your health care provider if the medicine prescribed to you: ? Requires you to avoid driving or using machinery. ? Can cause constipation. You may need to take these actions to prevent or treat constipation: ? Drink enough fluid to keep your urine pale yellow. ? Take wdtk-ect-rhutucz or prescription medicines. ? Eat foods that are high in fiber, such as beans, whole grains, and fresh fruits and vegetables. ? Limit foods that are high in fat and processed sugars, such as fried or sweet foods. Lifestyle ? Do exercises as told by your health care provider or physical therapist. ? Practice relaxation techniques to control your stress. You may want to try: ? Biofeedback. ? Visual imagery. ? Hypnosis. ? Muscle relaxation. ? Yoga. ? Meditation. ? Maintain a healthy lifestyle. This includes eating a healthy diet and getting enough sleep. ? Do not use any products that contain nicotine or tobacco. These products include cigarettes, ch (more content not included)... Normal [facility] Reminderson 06-06-2023 Reminders - From: Marin BATRES MD To: Marin BATRES MD; Sent: 06/06/2023 13:23:57 EDT Show up: 06/13/2023 13:23:00 EDT Subject: Watch for biopsy Reminder/Recall Normal [facility] Immunization Recordson 05-30 Immunization Records [id number] 4#1.00CD:127 Normal [facility] Ambulatory Visit Summaryon 0 04-22-2023 Ambulatory Visit Summary CHIARA GERARDRA Govea :1955 Visit Date:04/22/2023 Ambulatory Visit Instructions Your Diagnosis Chronic seasonal allergic rhinitis Pharyngitis Screening mammogram, encounter for Ovarian failure Your Care Team Attending Physician - Marin BATRES MD Primary Care Physician - Marin BATRES MD This Is Your Medications List acyclovir (acyclovir 800 mg Tab) azelastine nasal (azelastine hydrochloride 137 mcg spray) cetirizine (cetirizine 10 mg Tab) fluconazole (Diflucan 150 mg Tab) latanoprost ophthalmic (latanoprost Opth 0.005% Louise) loratadine (loratadine 10 mg Tab) multivitamin with minerals (Multivitamin, Therapeutic w/ Minerals) predniSONE (predniSONE 20 mg Tab) Procedures Performed Colonoscopy (05/24/2022), Colonoscopy (05/24/2022), Appendectomy, Colonoscopy, EGD, Hysterectomy and unilateral salpingo-oophorectom y sample, Oophorectomy of remaining ovary, rectocele repair, RSO, UGI. Discharge Vitals Temperature (Temporal Artery) 36.8 ?C Heart Rate (Peripheral) 68 Respiratory Rate 16 Blood Pressure 136/80 Height 157 cm Height 62 in Weight 60.1 kg Weight 132.22 lb BMI 24.38 Medications What How Much When Instructions Unchanged acyclovir (acyclovir 800 mg Tab) 1 Tablets By Mouth 5 times a day Take one tab daily for 5 days with onset of blisters on mouth. Refills are for future out breaks Unchanged azelastine nasal (azelastine hydrochloride 137 mcg spray) Unchanged cetirizine (cetirizine 10 mg Tab) 1 Tablets By Mouth Every day take 1 tablet by mouth once daily if needed for ALLERGY SYMPTOMS Unchanged fluconazole (Diflucan 150 mg Tab) 1 Tablets By Mouth Once 2 nd tab taken 72 hours after first dose Unchanged latanoprost ophthalmic (latanoprost Opth 0.005% Louise) 1 Drops Ophthalmic Once a day (at bedtime) Unchanged loratadine (loratadine 10 mg Tab) 1 Tablets By Mouth Every other day Unchanged multivitamin with minerals (Multivitamin, Therapeutic w/ Minerals) 1 Tablets By Mouth Every day Unchanged predniSONE (predniSONE 20 mg Tab) take 2 tablet once daily for 3 days then 1 tablet once daily Allergies Zolpidem Tartrate (sleep walking) Problems Ongoing - Any problem that you are currently receiving treatment for. Back pain, lumbosacral 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, adult Cervical radiculopathy Chronic seasonal allergic rhinitis Cold sore Constipation, chronic Family history of colonic polyps Fibromyalgia Generalized anxiety disorder Glaucoma Herpes simplex type 1 antibody positive History of colon polyps Hypopigmented skin lesion IBS (irritable bowel syndrome) IFG (impaired fasting glucose) Lumbar radiculopathy Ovarian failure Pelvic pressure in female Personal history of colonic polyps Pharyngitis Screening mammogram, encounter for Stress incontinence Vulvovaginitis due to yeast Historical - Any problem that you are no longer receiving treatment for. Acute Eustachian salpingitis, right ear Anxiety Arthritis Chronic allergic rhinitis Eustachian tube dysfunction Herpes zoster High blood cholesterol Metatarsalgia of left foot [employer] Allergic Rhinitis, Adult Allergic rhinitis is an allergic reaction that affects the mucous membrane inside the nose. The mucous membrane is the tissue that produces mucus. There are two types of allergic rhinitis: ? Seasonal. This type is also called hay fever and happens only during certain seasons. ? Perennial. This type can happen at any time of the year. Allergic rhinitis cannot be spread from person to person. This condition can be mild, moderate, or severe. It can develop at any age and may be outgrown. What are the causes? This condition is caused by allergens. These are things that can cause an allergic reaction. Allergens may differ for seasonal allergic rhinitis and perennial allergic rhinitis. ? Seasonal allergic rhinitis is triggered by pollen. Pollen can come from grasses, trees, and weeds. ? Perennial allergic rhinitis may be triggered by: ? Dust mites. ? Proteins in a pet's urine, saliva, or dander. Dander is skin cells from a pet. ? Smoke, mold, or car fumes. What increases the risk? You are more likely to develop this condition if you have a family history of allergies or other conditions related to allergies, including: ? Allergic conjunctivitis. This is inflammation of parts of the eyes and eyelids. ? Asthma. This condition affects the lungs and makes it hard to breathe. ? Atopic dermatitis or eczema. This is salvage determiner (chronic) inflammation of the skin. ? Food allergies. What are the signs or symptoms? Symptoms of this condition include: ? Sneezing or coughing. ? A stuffy nose (nasal congestion), itchy nose, or nasal discharge. ? Itchy eyes and tearing of the eyes. ? A feeling of mucus dripping down the back of your throat (postnasal drip). ? Trouble (more content not included)... Normal [facility] Family Medicine Office/Clini c Noteon 04-22-2023 Family Medicine Office/Clinic Note Chief Complaint pt presents today c/o sore throat, myalgias, chills/sweats, minimal cough starting yesterday. denies fevers, n/v/d, rowley's. History of Present Illness HISTORY OF PRESENT ILLNESS The patient is a 68-year-old female with myalgias, fever, sore throat, and chills. She has been feeling bad for 1 to 2 days. She came back from [place] yesterday. She did not think her brother was sick. He was laying around and drowsy but worsened today primarily with respiratory illness. He has not sought any evaluation. He did not have any testing done. She has a sore throat and clear drainage. She denies any fevers but feels chilled.. She is tired, which is not normal for her. She denies any headaches. She has a cough, but not a lot. She denies any shortness of breath. She gets dizzy quite a bit With acute positional change. Appetite remains fair. No vomiting or diarrhea. She has a deep cutting sensation in the left nostril. This has been chronic.. She is always picking at it. Asks if she can use a topical prescription had previously had mupirocin several years ago for the same. Inquired about bone density testing and mammogram. Former has not been done, bladder was completed at [facility] earlier this year I have not seen a report. She is agreeable to bone density due to concern about osteoporosis. Review of Systems PHQ Score Initial Depression Screen Score: 0 See HPI otherwise negative Physical Exam Vitals & Measurements T: 36.8 ?C(Temporal Artery) HR: 68(Peripheral) RR: 16 BP: 136/80 SpO2: 94% HT: 62 in HT: 157 cm WT: 60.1 kg WT: 132.22 lb BMI: 24.38 PHYSICAL EXAM Constitutional: The patient is adequately groomed, well hydrated, age appropriate. HEENT: Normocephalic. Conjunctiva are clear. Pupils are symmetric. Wearing corrective lenses. Oropharynx is erythematous but no exudate. No tonsillar swelling. Adequate need of dentition. TMs are retracted but scant cerumen. Grossly normal hearing. Boggy turbinates, clear rhinorrhea. Left nostril is pierced. Small excoriation just inside the left nostril is tender to touch. Neck: Tender shotty nodes. Lungs: Clear to auscultation bilaterally but diminished at the bases. Heart: Regular rate and rhythm. No murmur, gallop, or rub. Gastrointestinal: Abdomen: Soft, flat, hyperactive bowel sounds. Musculoskeletal: Well-developed, slightly stooped posture. Integumentary: Warm and dry. Dark skin tones. No rash or petechiae on exposed surfaces. Neurologic: No acute deficits. Assessment/Plan 1. Pharyngitis (J02.9: Acute pharyngitis, unspecified) Patient tested negative for strep pharyngitis as well as COVID with a rapid swab. We discussed the high likelihood that this simply represents a viral syndrome. Obvious COVID could be testing negative in post exchange manager the next 5 days therefore suggesting she retest at home if persistent symptoms, continue to exercise caution and avoid exposing others to any symptomatic drainage. Notify me of any acute worsening Ordered: Current tobacco non-user 1036F Depression Screening Negative 3352F Discharge medications reconciled with current medications in outpatient record 1111F HBA1C <7.0 Most Recent Level 3044F Influenza immunization administered or previously received 4274F Most recent diastolic blood pressure 80-89 mm Hg 3079F Most recent LDL-C > or = 130 mg/dL 3050F Patient screen for fall risk: no falls in last year or 1 fall with no injury in last year 1101F Pneumonia Vax administered or previously received 4040F Rapid COVID POC 88030 Rapid Strep POC 76940 Systolic BP 130-139 mm Hg (Most Recent) 3075F 2. Nasal sore (J34.89: Other specified disorders of nose and nasal sinuses) Topical mupirocin as prescribed May use sparingly to the lesion inside the nostril 3. Chronic seasonal allergic rhinitis (J30.2: Other seasonal allergic rhinitis) Suggest to continue nasal steroids and antihistamines understanding the allergies may still be primary cause of her symptoms. Ordered: Current tobacco non-user 1036F Depression Screening Negative 3352F Discharge medications reconciled with current medications in outpatient record 1111F HBA1C <7.0 Most Recent Level 3044F Influenza immunization administered or previously received 4274F Most recent diastolic blood pressure 80-89 mm Hg 3079F Most recent LDL-C > or = 130 mg/dL 3050F Patient screen for fall risk: no falls in last year or 1 fall with no injury in last year 1101F Pneumonia Vax administered or previously received 4040F Rapid COVID POC 54601 Rapid Strep POC 96610 Systolic BP 130-139 mm Hg (Most Recent) 3075F 4. Ovarian failure (E28.39: Other primary ovarian failure) Patient agreeable to bone density testing explained that this is an x-ray of the hips and spine to determine strength of the bones. Encouraged vitamin D and calcium supplementation order will be sent to [facility] at her request and we will retrieve her mammogram report Ordered: BD Bone Density DEXA Cur (more content not included)... Normal [facility] Comment on above: Result Comment: Elec tronically Signed By: GISEL RAMIREZ, Marin\.jesica\Date and Time Signed: 04/22/23 21:48 EDT Patient Educationon 04-22-20 Patient Education Immunology Allergic Rhinitis, Adult Allergic rhinitis is an allergic reaction that affects the mucous membrane inside the nose. The mucous membrane is the tissue that produces mucus. There are two types of allergic rhinitis: ? Seasonal. This type is also called hay fever and happens only during certain seasons. ? Perennial. This type can happen at any time of the year. Allergic rhinitis cannot be spread from person to person. This condition can be mild, moderate, or severe. It can develop at any age and may be outgrown. What are the causes? This condition is caused by allergens. These are things that can cause an allergic reaction. Allergens may differ for seasonal allergic rhinitis and perennial allergic rhinitis. ? Seasonal allergic rhinitis is triggered by pollen. Pollen can come from grasses, trees, and weeds. ? Perennial allergic rhinitis may be triggered by: ? Dust mites. ? Proteins in a pet's urine, saliva, or dander. Dander is skin cells from a pet. ? Smoke, mold, or car fumes. What increases the risk? You are more likely to develop this condition if you have a family history of allergies or other conditions related to allergies, including: ? Allergic conjunctivitis. This is inflammation of parts of the eyes and eyelids. ? Asthma. This condition affects the lungs and makes it hard to breathe. ? Atopic dermatitis or eczema. This is salvage determiner (chronic) inflammation of the skin. ? Food allergies. What are the signs or symptoms? Symptoms of this condition include: ? Sneezing or coughing. ? A stuffy nose (nasal congestion), itchy nose, or nasal discharge. ? Itchy eyes and tearing of the eyes. ? A feeling of mucus dripping down the back of your throat (postnasal drip). ? Trouble sleeping. ? Tiredness or fatigue. ? Headache. ? Sore throat. How is this diagnosed? This condition may be diagnosed with your symptoms, medical history, and physical exam. Your health care provider may check for related conditions, such as: ? Asthma. ? [place] eye. This is eye inflammation caused by infection (conjunctivitis). ? Ear infection. ? Upper respiratory infection. This is an infection in the nose, throat, or upper airways. You may also have tests to find out which allergens trigger your symptoms. These may include skin tests or blood tests. How is this treated? There is no cure for this condition, but treatment can help control symptoms. Treatment may include: ? Taking medicines that block allergy symptoms, such as corticosteroids and antihistamines. Medicine may be given as a shot, nasal spray, or pill. ? Avoiding any allergens. ? Being exposed again and again to tiny amounts of allergens to help you build a defense against allergens (immunotherapy). This is done if other treatments have not helped. It may include: ? Allergy shots. These are injected medicines that have small amounts of allergen in them. ? Sublingual immunotherapy. This involves taking small doses of a medicine with allergen in it under your tongue. If these treatments do not work, your health care provider may prescribe newer, stronger medicines. Follow these instructions at home: Avoiding allergens Find out what you are allergic to and avoid those allergens. These are some things you can do to help avoid allergens: ? If you have perennial allergies: ? Replace carpet with wood, tile, or vinyl anneliese. Carpet can trap dander and dust. ? Do not smoke. Do not allow smoking in your home. ? Change your heating and air conditioning filters at least once a month. ? If you have seasonal allergies, take these steps during allergy season: ? Keep windows closed as much as possible. ? Plan outdoor activities when pollen counts are lowest. Check pollen counts before you plan outdoor activities. ? When coming indoors, change clothing and shower before sitting on furniture or bedding. ? If you have a pet in the house that produces allergens: ? Keep the pet out of the bedroom. ? Vacuum, sweep, and dust regularly. General instructions ? Take vnef-[id number] and prescription medicines only as told by your health care provider. ? Drink enough fluid to keep your urine pale yellow. ? Keep all follow-up visits as told by your health care provider. This is important. Where to find more information ? [employer]: www.aaaai.org Contact a health care provider if: ? You have a fever. ? You develop a cough that does not go away. ? You make whistling sounds when you breathe (wheeze). ? Your symptoms slow you down or stop you from doing your normal activities each day. Get help right away if: ? You have shortness of breath. This symptom may represent a serious problem that is an emergency. Do not wait to see if the symptom will go away. Get medical help right away. Call your local emergency services (911 in the [place] Do not drive yourself to the hospital. Summ (more content not included)... Normal [facility] Basic Metabolic Panelon - Anion gap [Moles/Vol] 9 mmol/L 9 - 17 mmol/L [facility] Calcium [Mass/Vol] 8.9 mg/dL 8.6 - 10. 4 mg/dL [facility] Chloride [Moles/Vol] 106 mmol/L 98 - 10 7 mmol/L [facility] CO2 [Moles/Vol] 25 mmol/L 20 - 31 mmol/L [facility] Creatinine [Mass/Vol] 0.8 mg/dL 0.50 - 0.90 mg/dL [facility] GFR/1.73 sq M.predicted MDRD (S/P/Bld) [Vol rate/Area] - PINF [facility] Comment on above: These results are not intended for use in patients <18 years of age. eGFR results are calculated without a race factor using the 2020 CKD-EPI equation. Careful clinical correlation is recommended, particularly when comparing to results calculated using previous equations. The CKD-EPI equation is less accurate in patients with extremes of muscle mass, extra-renal metabolism of creatine, excessive creatine ingestion, or following therapy that affects renal tubular secretion. Glucose [Mass/Vol] 96 mg/dL 70 - 99 mg/dL [facility] Potassium [Moles/Vol] 4.0 mmol/L 3.7 - 5.3 mmol/L [facility] Sodium [Moles/Vol] 140 mmol/L 135 - 144 mmol/L [facility] Urea nitrogen [Mass/Vol] 12 mg/dL 8 - 23 mg/dL [facility] Urea nitrogen/Creatinine (Bld) [Mass ratio] 15 9 - 20 [facility] Basic Metabolic Profon 12-11 Anion gap [Moles/Vol] 9 mmol/L Normal 9-17 [facility] Comment on above: Performed By: #### C GABBI PEREIRA BMP #### [facility] [address] [place] [address] Ladle Handler: Antonio Beckett MD BUN/CRE Ratio 15 Normal 9-20 [facility] Comment on above: Performed By: #### C GABBI PEREIRA BMP #### [facility] [address] [place], [place] [id number] Ladle Handler: Antonio Beckett MD Calcium [Mass/Vol] 8.9 mg/dL Normal 8.6-10.4 [facility] Comment on above: Performed By: #### C KELLI TROPI, BMP #### [facility] [address] [place], [place] [id number] Ladle Handler: Antonio Beckett MD Chloride [Moles/Vol] 106 mmol/L Normal 98-107 [facility] Comment on above: Performed By: #### C KELLI TROPI, BMP #### [facility] [address] [place] [id number] Ladle Handler: Antonio Beckett MD CO2 [Moles/Vol] 25 mmol/L Normal 20-31 [facility] Comment on above: Performed By: #### C KELLI TROPI, BMP #### [facility] [address] [place], [place] [phone] Ladle Handler: Antonio Beckett MD Creatinine [Mass/Vol] 0.80 mg/dL Normal 0.50-0.90 [facility] Comment on above: Performed By: #### C LARISSA PEREIRAI, BMP #### [facility] [address] [place] [address] Ladle Handler: Antonio Beckett MD GFR/1.73 sq M.predicted among non-blacks MDRD (S/P/Bld) [Vol rate/Area] mL/min/{1.73_m2} Normal >60 [facility] Comment on above: Result Comment: These results are not intended for use in patients <18 years of age. eGFR results are calculated without a race factor using the 2020 CKD-EPI equation. Careful clinical correlation is recommended, particularly when comparing to results calculated using previous equations. The CKD-EPI equation is less accurate in patients with extremes of muscle mass, extra-renal metabolism of creatine, excessive creatine ingestion, or following therapy that affects renal tubular secretion. Performed By: #### C DP TROPI, BMP #### [facility] [address] [place], [place] [phone] Ladle Handler: Antonio Beckett MD Glucose [Mass/Vol] 96 mg/dL Normal 70-99 [facility] Comment on above: Performed By: #### C KELLI [facility] BMP #### [facility] [address] [place], [place] [phone] Ladle Handler: Antonio Beckett MD Potassium [Moles/Vol] 4.0 mmol/L Normal 3.7-5.3 [facility] Comment on above: Performed By: #### [facility] #### [facility] [address] [place], [place] [phone] Ladle Handler: Antonio Beckett MD Sodium [Moles/Vol] 140 mmol/L Normal 135-144 [facility] Comment on above: Performed By: #### C KELLI [facility] BMP #### [facility] [address] [place], [place] [phone] Ladle Handler: Antonio Beckett MD Urea nitrogen [Mass/Vol] 12 mg/dL Normal 8-23 [facility] Comment on above: Performed By: #### C KELLI [facility] BMP #### [facility] [address] [place], [place] [phone] Ladle Handler: Antonio Beckett MD CBC with Auto Differentialon 12-11-2022 Absolute Eos # 0.20 [facility] Absolute Lymph # 2.20 [facility] Absolute [place] # 0.50 [facility] Basophils (Bld) [#/Vol] 0.00 10*3/uL [facility] Basophils/100 WBC (Bld) 1 % 0 - 2 % [facility] Differential Type YES [facility] Eosinophils/100 WBC (Bld) 3 % 0 - 5 % [facility] Hematocrit (Bld) [Volume fraction] 38.9 % 36 - 46 % [facility] Hemoglobin (Bld) [Mass/Vol] 13.0 g/dL 12.0 - 16.0 g/dL [facility] Lymphocytes/100 WBC (Bld) 31 % 15 - 40 % [facility] MCH (RBC) [Entitic mass] 30.4 pg 26 - 34 pg [facility] MCHC (RBC) [Mass/Vol] 33.4 g/dL 31 - 37 g/dL [facility] MCV (RBC) [Entitic vol] 91.1 fL 80 - 100 fL [facility] Monocytes/100 WBC (Bld) 8 % 4 - 8 % [facility] Platelet distribution width (Bld) [Ratio] 13.1 % 12.1 - 15.2 % [facility] Platelets (Bld) [#/Vol] 287 10*3/uL [facility] RBC (Bld) [#/Vol] 4.28 10*6/uL 4.0 - 5.2 m/uL [facility] Segmented neutrophils/100 WBC (Bld) 57 % 47 - 75 % [facility] Segs Absolute 4.20 [facility] WBC (Bld) [#/Vol] 7.2 10*3/uL [facility] CBC with Diffon 12-11-2022 Abs. Basophil 0.00 k/uL Normal 0.0-0.2 [facility] Comment on above: Performed By: #### C GABBI PEREIRA BMP #### [facility] [address] [place] [phone] Ladle Handler: Antonio Beckett MD Abs.Neutrophil (Seg) 4.20 k/uL Normal 2.5-7.0 [facility] Comment on above: Performed By: #### C GABBI PEREIRA BMP #### [facility] [address] [place] [phone] Ladle Handler: Antonio Beckett MD Auto Diff Performed YES Normal [facility] Comment on above: Performed By: #### C GABBI PEREIRA BMP #### [facility] [address] [place], [place] [phone] Ladle Handler: Antonio Beckett MD Basophils/100 WBC (Bld) 1 % Normal 0-2 [facility] Comment on above: Performed By: #### C DP, TROPI, BMP #### [facility] [address] [place] [phone] Ladle Handler: Antonio Beckett MD Eosinophils (Bld) [#/Vol] 0.20 10*3/uL Normal 0.0-0.4 [facility] Comment on above: Performed By: #### C DP, TROPI, BMP #### [facility] [address] [place] [phone] Ladle Handler: Antonio Beckett MD Eosinophils/100 WBC (Bld) 3 % Normal 0-5 [facility] Comment on above: Performed By: #### C DP, TROPI, BMP #### [facility] [address] [place] [phone] Ladle Handler: Antonio Beckett MD Erythrocyte distribution width (RBC) [Ratio] 13.1 % Normal 12.1-15.2 [facility] Comment on above: Performed By: #### C DP, TROPI, BMP #### [facility] [address] [place] [phone] Ladle Handler: Antonio Beckett MD Hematocrit (Bld) [Volume fraction] 38.9 % Normal 36-46 [facility] Comment on above: Performed By: #### C DP, TROPI, BMP #### [facility] [address] [place] [phone] Ladle Handler: Antonio Beckett MD Hemoglobin (Bld) [Mass/Vol] 13.0 g/dL Normal 12.0-16.0 [facility] Comment on above: Performed By: #### C DP, TROPI, BMP #### [facility] [address] [place] [phone] Ladle Handler: Antonio Beckett MD Lymphocytes (Bld) [#/Vol] 2.20 10*3/uL Normal 1.0-4.8 [facility] Comment on above: Performed By: #### C DP TROPI, BMP #### [facility] [address] [place] [phone] Ladle Handler: Antonio Beckett MD Lymphocytes/100 WBC (Bld) 31 % Normal 15-40 [facility] Comment on above: Performed By: #### C DP TROPI, BMP #### [facility] [address] [place] [address] Ladle Handler: Antonio Beckett MD MCH (RBC) [Entitic mass] 30.4 pg Normal 26-34 [facility] Comment on above: Performed By: #### C KELLI TROPI, BMP #### [facility] [address] [place] [address] Ladle Handler: Antonio Beckett MD MCHC (RBC) [Mass/Vol] 33.4 g/dL Normal 31-37 [facility] Comment on above: Performed By: #### C KELLI TROPI, BMP #### [facility] [address] [place] [phone] Ladle Handler: Antonio Beckett MD MCV (RBC) [Entitic vol] 91.1 fL Normal 80-100 [facility] Comment on above: Performed By: #### C DP, TROPI, BMP #### [facility] [address] [id number] Ladle Handler: Antonio Beckett MD Monocytes (Bld) [#/Vol] 0.50 10*3/uL Normal 0.0-1.0 [facility] Comment on above: Performed By: #### C DP, TROPI, BMP #### [facility] [address] [id number] Ladle Handler: Antonio Beckett MD Monocytes/100 WBC (Bld) 8 % Normal 4-8 [facility] Comment on above: Performed By: #### C DP, TROPI, BMP #### [facility] [address] [place] [address] Ladle Handler: Antonio Beckett MD Neutrophil (Seg) 57 % Normal 47-75 [facility] Comment on above: Performed By: #### C DP, TROPI, BMP #### [facility] [address] [place] [address] Ladle Handler: Antonio Beckett MD Platelets (Bld) [#/Vol] 287 10*3/uL Normal 140-450 [facility] Comment on above: Performed By: #### C DP, TROPI, BMP #### [facility] [address] [place] [address] Ladle Handler: Antonio Beckett MD RBC (Bld) [#/Vol] 4.28 10*6/uL Normal 4.0-5.2 [facility] Comment on above: Performed By: #### C DP, TROPI, BMP #### [facility] [address] [place] [address] Ladle Handler: Antonio Beckett MD WBC (Bld) [#/Vol] 7.2 10*3/uL Normal 3.5-11.0 [facility] Comment on above: Performed By: #### C DP, TROPI, BMP #### [facility] [address] [place] [address] Ladle Handler: Antonio Beckett MD Troponinon 12-11-2022 Troponin, High Sens 7 ng/L Normal 0-14 [facility] Comment on above: Result Comment: High Sensitivity Troponin values cannot be compared with other Troponin methodologies. Performed By: #### C DP, TROPI, BMP #### [facility] [address] [place] [address] Ladle Handler: Antonio Beckett MD Troponin I.cardiac DL <= 0.01 ng/mL [Mass/Vol] 7 ng/L 0 - 14 ng/L [facility] Comment on above: High Sensitivity Tro ponin values cannot be compared with other Troponin methodologies. [facility] XR CHEST PORTABLEon 12-12-19 XR CHEST PORTABLE EXAM: XR CHEST PORTABLE HISTORY: Reason for exam:->chest pain. COMPARISON: Chest radiograph from 12/17/2010. TECHNIQUE: Portable AP view is performed. FINDINGS: There is no focal airspace opacity. Pulmonary vascularity is within normal limits. There is no gross pleural effusion or pneumothorax. Cardiac silhouette is within normal limits in size. Osseous structures are grossly intact however degenerative changes are present within the shoulders. IMPRESSION: No active disease in the chest. Interpreted by: Arturo Walters MD Signed by: Arturo Walters MD 12/11/22 Final result Normal [facility] US GALLBLADDER RUQon 022 1. The head and body of pancreas appears normal. The tail was obscured due to overlying bowel gas. 2. The remainder the right upper quadrant was unremarkable. [facility] CONSOLIDATED EXAM: US GALLBLADDER RUQ HISTORY: Nausea. Epigastric pain. COMPARISON: None. TECHNIQUE: Grayscale and color imaging was performed FINDINGS: The head and body of the pancreas appears normal. The tail was obscured due to overlying bowel gas. Liver is normal in size. No masses or biliary dilatation is noted. The gallbladder appears normal with no stones or sludge identified. No gallbladder wall thickening is noted. Common bile duct measures 2 mm. Right kidney measures 9.9 x 4.9 x 4.1 cm. No solid renal cortical masses or hydronephrosis is noted. No fluid is noted in the right upper quadrant. PN [facility]IS CONSOLIDATED Antonio Batres MD - 05/10/2022 EXAM: US GALLBLADDER RUQ HISTORY: Nausea. Epigastric pain. COMPARISON: None. TECHNIQUE: Grayscale and color imaging was performed FINDINGS: The head and body of the pancreas appears normal. The tail was obscured due to overlying bowel gas. Liver is normal in size. No masses or biliary dilatation is noted. The gallbladder appears normal with no stones or sludge identified. No gallbladder wall thickening is noted. Common bile duct measures 2 mm. Right kidney measures 9.9 x 4.9 x 4.1 cm. No solid renal cortical masses or hydronephrosis is noted. No fluid is noted in the right upper quadrant. IMPRESSION: 1. The head and body of pancreas appears normal. The tail was obscured due to overlying bowel gas. 2. The remainder the right upper quadrant was unremarkable. [employer] Work Phone: Radiology Study observation (narrative) [employer] Work Phone: GALLBLADDER RUQOrdered By : Antonio Batres on 05-10-2022 [employer] Work Phone: Amylaseon 05-05-2022 Amylase [Catalytic activity/Vol] 57 U/L 28 - 100 U/L [facility] john 05-05-2022 Albumin [Mass/Vol] 4.4 g/dL 3.5 - 5.2 g/dL [facility] ALP (Bld) [Catalytic activity/Vol] 122 U/L High 35 - 104 U/L [facility] ALT [Catalytic activity/Vol] 16 U/L 5 - 33 U/L [facility] Anion gap [Moles/Vol] 8 mmol/L Low 9 - 17 mmol/L [facility] AST [Catalytic activity/Vol] 21 U/L NINF - 32 U/L [facility] Bilirubin [Mass/Vol] 0.7 mg/dL 0.3 - 1 .2 mg/dL [facility] Calcium [Mass/Vol] 9.5 mg/dL 8.6 - 10. 4 mg/dL [facility] Chloride [Moles/Vol] 107 mmol/L 98 - 10 7 mmol/L [facility] CO2 [Moles/Vol] 28 mmol/L 20 - 31 mmol/L [facility] Creatinine [Mass/Vol] 0.73 mg/dL 0.5 - 0.9 mg/dL [facility] Free PSA/Total PSA [Mass fraction] 7.3 g/dL 6.4 - 8.3 g/dL [facility] GFR >60 60 - PI NF mL/min [facility] GFR Non- >60 60 - PINF mL/min [facility] GFR/1.73 sq M.predicted MDRD (S/P/Bld) [Vol rate/Area] [facility] Comment on above: Average GFR for 60-6 9 years old: 85 mL/min/1.73sq m Chronic Kidney Disease: <60 mL/min/1.73sq m Kidney failure: <15 mL/min/1.73sq m eGFR calculated using average adult body mass. Additional eGFR calculator available at: http://www.reQwip/multiple_crcl_2012.htm Glucose [Mass/Vol] 102 mg/dL High 70 - 99 mg/dL [facility] Interpretation and review of laboratory results Abnormal [facility] Potassium [Moles/Vol] 4.1 mmol/L 3.7 - 5.3 mmol/L [facility] Sodium [Moles/Vol] 143 mmol/L 135 - 144 mmol/L [facility] Urea nitrogen (BldV) [Mass/Vol] 11 mg/dL 8 - 23 mg/dL [facility] Urea nitrogen/Creatinine (Bld) [Mass ratio] 15 9 - 20 [facility] Lipaseon 05-05-2022 Lipase [Catalytic activity/Vol] 18 U/L 13 - 60 U/L [facility] No Panel Informationon 05-05 [facility] PAP ACOG PANEL 2: 30 to 65on 2022 . . Normal [facility] Comment on above: Performed By: #### [id number] #### [facility] [address] [address] [address] Hallie Zazueta Age Gdln ACOG Testing Comment Normal [facility] Comment on above: Result Comment: <21 or >65 or no age provided Performed By: #### [id number] #### [facility] [address] [address] [address] Hallie Zazueta DIAGNOSIS: Comment Normal [facility] Comment on above: Result Comment: NEGA TIVE FOR INTRAEPITHELIAL LESION OR MALIGNANCY. CELLULAR CHANGES ASSOCIATED WITH ATROPHY ARE PRESENT. THIS SPECIMEN WAS RESCREENED PART OF OUR BOOKKEEPING CLERK PROGRAM. Performed By: #### [id number] #### [facility] [address] [place] [address] Dr. Hallie Zazueta Methodology: Comment [facility] Comment on above: Result Comment: This liquid based ThinPrep(R) pap test was screened with the use of an image guided system. Performed By: #### [id number] #### [facility] [address] [place] [address] Dr. Hallie Zazueta Note: Comment Normal [facility] Comment on above: Result Comment: The Pap smear is a screening test designed to aid in the detection of premalignant and malignant conditions of the uterine cervix. It is not a diagnostic procedure and should not be used as the sole means of detecting cervical cancer. Both false-positive and false-negative reports do occur. . Performed By: #### [id number] #### [facility] [address] [place] [address] Dr. Hallie Zazueta Performed by: Comment Normal [facility] Comment on above: Result Comment: Roma Maria, Terrazzo Finisher (ASCP) Performed By: #### [id number] #### [facility] [address] [place] [address] Dr. Hallie Zazueta QC reviewed by: Comment Normal [facility] Comment on above: Result Comment: Linda John, Supervisory Terrazzo Finisher (ASCP) Performed By: #### [id number] #### [facility] [address] [place] [address] Dr. Hallie Zazueta Specimen adequacy: Comment Normal [facility] Comment on above: Result Comment: Sati sfactory for evaluation. Endocervical component may not be distinguished in cases of atrophy. Performed By: #### [id number] #### [facility] [address] [place] [address] Dr. Hallie Zazueta XR DEXA BONE DENSITYon 03-29 XR DEXA BONE DENSITY DEXA bone density study CLINICAL: 67-year-old female. Evaluate bone mineral density. The bone density study was assessed by dual-energy x-ray absorptiometry. Areas examined in AP projection. The test results are expressed in T-Score, which is used for diagnosis for osteoporosis, and reflects the standard deviations from the mean peak bone mineral density in young adults. Additional information regarding the Z-Score reflects the standard deviations from the mean peak bone mineral density for age- and gender-matched subjects. Lumbar Spine (L1-L4): BMD (gm/cm2): 1.028 T-Score: -1.4 Left Hip (total): BMD (gm/cm2): 0.878 T-Score: -1.0 Left Hip (Neck): BMD (gm/cm2): 0.880 T-Score: -1.1 Right Hip (Total): BMD (gm/cm2): 0.863 T-Score: -1.2 Right Hip (Neck): BMD (gm/cm2): 0.864 T-Score: -1.2 IMPRESSION: 1. Bone mineral density by WHO criteria: Osteopenia. Fracture risk increased. REFERENCE: In children, women and males under age 50 not at increased risk for fractures, only Z-Scores, not T-Scores, are used to indicate fracture risk. A Z-Score above -2.0 is defined as within the expected range for age and Z-Score at or less than -2.0 is below the expected range for age or bone mineral density less than normal for age. A Z-Score below the expected range for age in a patient with recent fractures and/or chronic corticosteroid treatment is consistent with a diagnosis of osteoporosis. In postmenopausal women and males 50 or over, comparison of the measured bone mineral density with the average value in young normal subjects (the T-Score) has been found to be useful in assessing fracture risk. Fracture risk approximately doubles for each 1.0 standard deviation (SD) that the individuals hip or spine bone mineral density is below the average value of young normal subjects. The World Health Organization (WHO) has provided the following definitions: 1. Normal: T-Score within one standard deviation of young adult mean value (T-Score at or above -1.0). 2. Osteopenia (low bone mass): T-Score more than one standard deviation below the young adult mean but less than 2.5 standard deviations below the young adult mean (T-Score between -1.0 and -2.5). 3. Osteoporosis: T-Score at or more than 2.5 standard deviations below the young adult mean (T-Score at or less than -2.5). 4. Severe Osteoporosis (established osteoporosis): T-Score more than 2.5 standard deviations below young adult and one or more fragility fracture (T-Score less than -2.5 plus fragility fractures). WHO Fracture risk assessment tool (FRAX) is typically not reported in patients already receiving therapy for osteoporosis, in patients with known vertebral or hip fractures, or in patients younger than 50. Electronically authenticated by: KAYLEE EDGAR Date: 2022 09:57 Normal [facility] CULTURE URINEon 03-23-2022 CULTURE URINE Culture Observations: NO GROWTH. Normal [facility] Comment on above: Performed By: #### U RCX #### [facility] [address] [place] [address] Dr. Hallie Zazueta XR SHOULDER RIGHT (MIN 2 VIE WS)on 07-17-2021 Degenerative changes. Early chondrocalcinosis. No acute change. [facility] CONSOL[facility] EXAM: XR SHOULDER RIGHT (MIN 2 VIEWS) HISTORY: Reason for exam:->pain 66-year-old female. COMPARISON: None. TECHNIQUE: 3 views right shoulder, 4 images. FINDINGS: Moderate degenerative change acromioclavicular glenohumeral joint. Slight chondrocalcinosis in the humeral head articular cartilage, barely perceptible. No fracture or dislocation. [facility] CON[facility] Chino Madison Jr., MD - 07/17/2021 EXAM: XR SHOULDER RIGHT (MIN 2 VIEWS) HISTORY: Reason for exam:->pain 66-year-old female. COMPARISON: None. TECHNIQUE: 3 views right shoulder, 4 images. FINDINGS: Moderate degenerative change acromioclavicular glenohumeral joint. Slight chondrocalcinosis in the humeral head articular cartilage, barely perceptible. No fracture or dislocation. IMPRESSION: Degenerative changes. Early chondrocalcinosis. No acute change. [employer] Phone: Radiology Study observation (narrative) [employer] Phone: XR SHOULDER RIGHT (MIN 2 VIE WS)Ordered By: Chino Madison on 07-17-2021 [employer] Work Phone: XR WRIST LEFT (MIN 3 VIEWS)o n 09-03-2020 Unremarkable exam. [email or web address] EXAM: Left wrist HISTORY: Worsening pain over the last 2 years. COMPARISON STUDY: 03/13/2019. TECHNIQUE: 3 views of the left wrist were obtained. FINDINGS: There is no evidence of fracture or dislocation. There are no suspicious bone lesions. There are minimal degenerative changes. Soft tissues are normal. [email or web address] Edmundo, [facility] Incoming Radiant Results From [employer] - 09/03/2020 9:13 AM EST EXAM: Left wrist HISTORY: Worsening pain over the last 2 years. COMPARISON STUDY: 03/13/2019. TECHNIQUE: 3 views of the left wrist were obtained. FINDINGS: There is no evidence of fracture or dislocation. There are no suspicious bone lesions. There are minimal degenerative changes. Soft tissues are normal. IMPRESSION: Unremarkable exam. [email or web address] XR WRIST RIGHT (MIN 3 VIEWS) on 09-03-2020 Unremarkable exam. [email or web address] EXAM: Right wrist HISTORY: Worsening pain over the last 2 years. TECHNIQUE: 3 views of the right wrist were obtained. FINDINGS: There is no evidence of fracture or dislocation. There are no suspicious bone lesions. There are mild degenerative changes at the first CMC joint. Soft tissues are normal. [email or web address] Edmundo, pn Incoming Radiant Results From [employer] - 09/03/2020 9:13 AM EST EXAM: Right wrist HISTORY: Worsening pain over the last 2 years. TECHNIQUE: 3 views of the right wrist were obtained. FINDINGS: There is no evidence of fracture or dislocation. There are no suspicious bone lesions. There are mild degenerative changes at the first CMC joint. Soft tissues are normal. IMPRESSION: Unremarkable exam. [email or web address] Vital Signs Date Time Vital Sign Value Performing Clinician Remi zhang 04-06-2024 13:53-0400 Blood Pressure Location Marin BATRES [facility] Medicine Jin 04-06-2024 13:53-0400 Diastolic blood pressure 68 mm[Hg] Marin BATRES [facility] 04-06-2024 13:53-0400 Heart rate 72 /min Christopher BROWN [facility] 04-06-2024 13:53-0400 Respiratory rate 16 /min Christopher BROWN [facility] 04-06-2024 13:53-0400 SaO2% (BldA) [Mass fraction] 100 % Christopher BROWN [facility] 04-06-2024 13:53-0400 Systolic blood pressure 124 mm[Hg] Christopher BROWN [facility] 12-27-2023 14:31-0400 Blood Pressure Location Christopher BROWN [facility] 12-27-2023 14:31-0400 Diastolic blood pressure 80 mm[Hg] Christopher BROWN [facility] 12-27-2023 14:31-0400 Heart rate 78 /min Christopher BROWN [facility] 12-27-2023 14:31-0400 Respiratory rate 16 /min Christopher BROWN [facility] 12-27-2023 14:31-0400 SaO2% (BldA) [Mass fraction] 99 % Christopher BROWN [facility] 12-27-2023 14:31-0400 Systolic blood pressure 136 mm[Hg] Christopher BROWN [facility] 09-20-2023 13:39-0500 Blood Pressure Location Christopher BROWN [facility] 09-20-2023 13:39-0500 Body temperature 97.52 [degF] Christopher BROWN [facility] 09-20-2023 13:39-0500 Diastolic blood pressure 70 mm[Hg] Christopher BROWN [facility] 09-20-2023 13:39-0500 Heart rate 72 /min Christopher BROWN [facility] Jin 09-20-2023 13:39-0500 SaO2% (BldA) [Mass fraction] 97 % Christopher BROWN [facility] [employer] 09-20-2023 13:39-0500 Systolic blood pressure 122 mm[Hg] Christopher BROWN [facility] Jin 09-06-2023 18:48-0500 Blood Pressure Location Christopher BROWN [facility] [employer] 09-06-2023 18:48-0500 Body temperature 98.6 [degF] Christopher BROWN [facility] [employer] 09-06-2023 18:48-0500 Diastolic blood pressure 80 mm[Hg] Christopher BROWN [facility] Jin 09-06-2023 18:48-0500 Heart rate 73 /min Christopher BROWN [facility] [employer] 09-06-2023 18:48-0500 Respiratory rate 16 /min Christopher BROWN [facility] [employer] 09-06-2023 18:48-0500 SaO2% (BldA) [Mass fraction] 96 % Christopher BROWN [facility] 09-06-2023 18:48-0500 Systolic blood pressure 120 mm[Hg] Christopher BROWN [facility] 08-26-2023 09:49-0500 Blood Pressure Location Christopher BROWN [facility] 08-26-2023 09:49-0500 Diastolic blood pressure 80 mm[Hg] Christopher BROWN [facility] 08-26-2023 09:49-0500 Heart rate 67 /min Christopher BROWN [facility] 08-26-2023 09:49-0500 Respiratory rate 16 /min Christopher BROWN [facility] 08-26-2023 09:49-0500 SaO2% (BldA) [Mass fraction] 98 % Christopher BROWN [facility] 08-26-2023 09:49-0500 Systolic blood pressure 120 mm[Hg] Christopher BROWN [facility] 08-09-2023 18:47-0500 Blood Pressure Location Christopher BROWN [facility] 08-09-2023 18:47-0500 Diastolic blood pressure 80 mm[Hg] Christopher BROWN [facility] 08-09-2023 18:47-0500 Heart rate 77 /min Christopher BROWN [facility] 08-09-2023 18:47-0500 Respiratory rate 16 /min Christopher BROWN [facility] 08-09-2023 18:47-0500 SaO2% (BldA) [Mass fraction] 98 % Christopher BROWN [facility] 08-09-2023 18:47-0500 Systolic blood pressure 134 mm[Hg] Marin BATRES [facility] 03-15-2023 13:02-0400 Blood Pressure Location Rose Mary Shankar [facility] 03-15-2023 13:02-0400 Body temperature 98.6 [degF] Rose Mary Houghant [facility] 03-15-2023 13:02-0400 Diastolic blood pressure 78 mm[Hg] Rose Mary Raad [facility] 03-15-2023 13:02-0400 Heart rate 56 /min Rose Mary Raad [facility] 03-15-2023 13:02-0400 Respiratory rate 16 /min Rose Mary Raad [facility] 03-15-2023 13:02-0400 SaO2% (BldA) [Mass fraction] 97 % Rose Mary Shankar [facility] 03-15-2023 13:02-0400 Systolic blood pressure 120 mm[Hg] Rose Mary Raad [facility] 12-11-2022 09:20-0400 Heart rate 63 /min Christophe Patterson MD Work Phone: [facility] 12-11-2022 09:20-0400 Respiratory rate 22 /min Christophe Patterson MD Work Phone: [facility] [employer] [facility] 12-11-2022 09:20-0400 SaO2% (BldA) [Mass fraction] 98 % Christophe Patterson MD Work Phone: [facility] 12-11-2022 09:15-0400 Diastolic blood pressure 89 mm[Hg] Christophe Patterson MD Work Phone: [facility] [employer] 12-11-2022 09:15-0400 Systolic blood pressure 130 mm[Hg] Christophe Patterson MD Work Phone: [facility] [employer] 12-11-2022 08:06-0400 Body height 157.5 cm Christophe Patterson MD Work Phone: [facility] [employer] 12-11-2022 08:06-0400 Body mass index (BMI) [Ratio] 23.41 kg/m2 Christophe Patterson MD Work Phone: [facility] [employer] 12-11-2022 08:06-0400 Body temperature 98.29 [degF] Christophe Patterson MD Work Phone: [facility] [employer] 12-11-2022 08:06-0400 Body weight 58.06 kg Christophe Patterson MD [facility]: [facility] 11-30-2022 09:53-0400 Body height 157.5 cm Yves Jones QUALITY ASSURANCE TEST PROGRAM MANAGER Work Phone: [facility] 11-30-2022 09:53-0400 Body mass index (BMI) [Ratio] 23.78 kg/m2 Yves Butte Des Morts CNP Work Phone: [facility] 11-30-2022 09:53-0400 Body weight 58.97 kg Marinelli [employer] QUALITY ASSURANCE TEST PROGRAM MANAGER Work Phone: [facility] 11-30-2022 09:53-0400 Diastolic blood pressure 87 mm[Hg] Marinelli But[employer] Des Morts QUALITY ASSURANCE TEST PROGRAM MANAGER Work Phone: [facility] 11-30-2022 09:53-0400 Heart rate 60 /min [employer] QUALITY ASSURANCE TEST PROGRAM MANAGER Work Phone: [facility] 11-30-2022 09:53-0400 SaO2% (BldA) [Mass fraction] 97 % [employer] QUALITY ASSURANCE TEST PROGRAM MANAGER Work Phone: [facility] 11-30-2022 09:53-0400 Systolic blood pressure 144 mm[Hg] [employer] QUALITY ASSURANCE TEST PROGRAM MANAGER Work Phone: [facility] 10-18-2022 11:02-0500 Blood Pressure Location Marin BATRES [facility] 10-18-2022 11:02-0500 Diastolic blood pressure 76 mm[Hg] Marin GISEL [facility] 10-18-2022 11:02-0500 Heart rate 75 /min Marin GISEL [facility] 10-18-2022 11:02-0500 Respiratory rate 16 /min Sandrory BATRES [facility] 10-18-2022 11:02-0500 SaO2% (BldA) [Mass fraction] 97 % Marin GISEL [facility] 10-18-2022 11:02-0500 Systolic blood pressure 118 mm[Hg] Marin BATRES [facility] 08-09-2022 05:48-0500 Body height 157.5 cm Marin Beaver MD Work Phone[facility] 08-09-2022 05:48-0500 Body mass index (BMI) [Ratio] 22.86 kg/m2 Marin Beaver MD Work Phone: [facility] [employer] 08-09-2022 05:48-0500 Body temperature 97.3 [degF] Marin Beaver MD Work Phone: [facility] 08-09-2022 05:48-0500 Body weight 56.7 kg Marin Beaver MD Work [facility] 12-12-2022 05:48-0500 Diastolic blood pressure 74 mm[Hg] Marin Beaver MD Work Phone: [facility] [employer] 08-09-2022 05:48-0500 Heart rate 76 /min Marin Beaver MD Work Phone: [facility] [employer] 08-09-2022 05:48-0500 Respiratory rate 16 /min Marin Beaver MD [facility] 08-09-2022 05:48-0500 SaO2% (BldA) [Mass fraction] 97 % Marin Beaver MD Work Phone[facility] 08-09-2022 05:48-0500 Systolic blood pressure 125 mm[Hg] Marin Beaver MD Work Phone[facility] 07-17-2021 10:48-0500 Body height 157.5 cm Hank Sow MD Work Phone: [employer] 07-17-2021 10:48-0500 Body mass index (BMI) [Ratio] 23.59 kg/m2 Hank Sow MD Work Phone: [employer] 07-17-2021 10:48-0500 Body temperature 97.81 [degF] Hank Sow MD Work Phone: [employer] 07-17-2021 10:48-0500 Body weight 58.51 kg Hank Sow MD Work Phone: [employer] 07-17-2021 10:48-0500 Diastolic blood pressure 95 mm[Hg] Hank Sow MD Work Phone: [employer] 07-17-2021 10:48-0500 Heart rate 79 /min Hank Sow MD Work Phone: [facility] 07-17-2021 10:48-0500 Respiratory rate 18 /min Hank Sow MD Work Phone: [facility] 07-17-2021 10:48-0500 SaO2% (BldA) [Mass fraction] 99 % Hank Sow MD Work Phone: [facility] 07-17-2021 10:48-0500 Systolic blood pressure 172 mm[Hg] Hank Sow MD Work Phone: [facility] 11-30-2019 16:54-0400 BMI (Body Mass Index) 25.7 kg/m2 [facility] 11-30-2019 16:54-0400 Body Temperature 97.5 [degF] [email or web address] 11-30-2019 16:54-0400 Body weight 61.69 kg [facility] [place] 11-30-2019 16:54-0400 BP Diastolic 91 mm[Hg] [facility] [place] 11-30-2019 16:54-0400 BP Systolic 159 mm[Hg] [facility] [place] 11-30-2019 16:54-0400 Pulse (Heart Rate) 67 /min [facility] 11-30-2019 16:54-0400 Pulse Oximetry 100 % [facility] [place] 11-30-2019 16:54-0400 Respiratory Rate 20 /min [facility] [place] Encounters Encounter Date Encounter Type Care Provider Facility Start: 04-06-2024 End: 04-06-2024 ambulatory Marin BATRES Facility: [facility] Start: 04-06-2024 End: 04-06-2024 Patient encounter procedure Marin BATRES [facility] Start: 01-19-2024 End: 01-19-2024 ambulatory Tari Meier Facility[facility] Start: 01-19-2024 End: 01-19-2024 Patient encounter procedure Tari Meier [facility] Start: 01-02-2024 End: 01-02-2024 ambulatory Marin BATRES Facility: [facility] Start: 01-02-2024 End: 01-02-2024 Patient encounter procedure Marin BATRES [facility] Start: 12-28-2023 ambulatory SOCIAL WORK MSW Pari Villalobos y:[facility] Start: 12-27-2023 End: 12-27-2023 ambulatory Marin BATRES Facility:[facility] Start: 12-27-2023 End: 12-27-2023 Patient encounter procedure Marin BATRES [facility] [place] Start: 12-26-2023 End: 12-26-2023 ambulatory Marin BATRES Facility:[facility] Start: 12-26-2023 End: 12-26-2023 Patient encounter procedure Marin BATRES [facility] Start: 12-13-2023 End: 12-13-2023 ambulatory [place] BATRES [place] Start: 11-03-2023 ambulatory Marin BATRES Facil ity: [facility] Start: 09-20-2023 End: 09-20-2023 Lab Drop off Marin BATRES [facility] Start: 09-20-2023 End: 09-20-2023 ambulatory [place] BATRES [place] Start: 09-20-2023 End: 09-20-2023 Patient encounter procedure Marin BATRES [facility] Start: 09-19-2023 End: 09-19-2023 ambulatory ROBIN JACKSONRiver Not Available Start: 09-13-2023 End: 09-13-2023 [facility] Start: 09-06-2023 ambulatory Marin BATRES Facil ity: [facility] Start: 09-06-2023 End: 09-06-2023 Patient encounter procedure Marin BATRES [facility] Start: 08-26-2023 End: 08-26-2023 Lab Drop off Marin BATRES [facility] Start: 08-26-2023 End: 08-26-2023 ambulatory Sandrory BATRES [place] Start: 08-26-2023 End: 08-26-2023 Patient encounter procedure Marin BATRES [facility] Start: 08-23-2023 End: 08-23-2023 ambulatory SOCIAL WORK MSW Pari Heredia Facility:[facility] Start: 08-09-2023 End: 08-09-2023 ambulatory Sandrory BATRES Facility: [facility] Start: 08-09-2023 End: 08-09-2023 Patient encounter procedure Marin BATRES [facility] Start: 06-18-2023 End: 07-07-2023 Pre-admission assessment SELF REFERRAL [facility] Start: 06-18-2023 End: 06-18-2023 ambulatory SELF REFERRAL [place] Start: 06-06-2023 End: 06-06-2023 ambulatory Marin BATRES Facility: [facility] Start: 04-22-2023 End: 04-22-[facility] Start: 04-11-2023 ambulatory Anika García ty: [facility] Start: 03-15-2023 End: 03-15-2023 Patient encounter procedure Rose Mary Shankar [facility] [place] Start: 12-11-2022 End: 12-11-2022 Emergency department patient [facility] Start: 12-11-2022 End: 12-11-2022 Emergency department patient visit Christophe Patterson MD Work Phone: [facility] ED Comment on above: Chest wall pain (Marcy kennedy Dx) Start: 12-01-2022 Orders Only Yves Moore Imtiaz QUALITY ASSURANCE TEST PROGRAM MANAGER Work Phone: [facility] Comment on above: Postnasal drip (Prim karley Dx) Start: 11-30-2022 End: 11-30-2022 ambulatory NILSON PAN [facility] Start: 11-30-2022 End: 11-30-2022 Office outpatient new 30 minutes Nilson Pan MD Work Phone: [facility] Comment on above: Post-nasal drainage (Primary Dx) Start: 10-18-2022 End: 10-18-2022 Patient encounter procedure Marin BATRES [facility] [place] [place] Start: 08-09-2022 End: 08-09-2022 Emergency department patient visit Marin Beaver MD Work Phone: [facility] ED Comment on above: Neck muscle spasm (P rimary Dx); Trapezius muscle spasm Start: 06-10-2022 ambulatory DEMETRICE DESHPANDE PRYKHODKO [facility] Start: 05-10-2022 End: 05-12-2022 Subsequent hospital visit by physician [facility] Ultrasound Room [facility] Ultrasound Comment on above: Epigastric pain; Nausea Start: 05-05-2022 End: 05-05-2022 Subsequent hospital visit by physician Nilson Pan MD Work Phone: [facility] Comment on above: Epigastric pain; Nausea Start: 2022 End: 03-30-[address] CHRISTINA CORTEZ Facility:[facility] Start: 03-23-2022 End: 03-23-[address] CHRISTINA CORTEZ Facility:[facility] Start: 12-07-2021 End: 12-07-2021 Patient encounter procedure Marin BATRES [facility] Start: 11-27-2021 End: 11-29-2021 Subsequent hospital visit by physician Tammie [facility] Dexa Scan Comment on above: Ovarian failure Visit for screening mammogram Start: 07-17-2021 End: 07-17-2021 Emergency department patient visit Hank Sow MD Work Phone: [facility] ED Comment on above: Bursitis of right sh oulder (Primary Dx) Start: 09-03-2020 End: 09-05-2020 Subsequent hospital visit by physician Tammie Additional Xray At [facility] Comment on above: Pain in both wrists Start: 09-03-2020 End: 09-05-2020 Subsequent hospital visit by physician Marin Batres [facility] Rad[facility] Start: 11-30-2019 End: 11-30-2019 Emergency department patient visit Terrie Robledo Work Phone: [facility] ED Comment on above: Herpes zoster withou t complication (Primary Dx); Nerve pain Procedures Date Procedure Procedure Detail Performing Clinician Start: 12-11-2022 End: 12-11-2022 Basic metabolic panel calcium total Christophe Patterson MD Work Phone: Start: 12-11-2022 Radiologic exam ches t single view Christophe Patterson MD Work Phone: Start: 12-11-2022 Ecg routine ecg w/le ast 12 lds w/i&r Christophe Patterson MD Work Phone: Start: 05-24-2022 Colonoscopy Yves vergara CNP Work Phone: Start: 05-24-2022 Colonoscopy Daniel BATRES Start: 05-10-2022 Us abdominal real ti me w/image limited Nilson Pan MD Work Phone: Start: 05-05-2022 Comprehensive metabo lic panel Nilson Pan MD Work Phone: Start: 07-17-2021 Radex shoulder compl ete minimum 2 views Hank Sow MD Work Phone: Start: 09-03-2020 End: 09-03-2020 Radex wrist complete minimum 3 views Melvin Figueroa Other Phone: Start: 11-30-2019 Radiologic exam ches t 2 views Terrie Robledo Work Phone: Start: 10-22-2011 Colonoscopy [facility] Willar d Appendectomy Marin CRISTY Comment on above: 1990 Colonoscopy Marin CRISTY WN EGD 2 Prestigosry CRISTY WN Comment on above: -normal U GI Hysterectomy and unilateral salpingo-oophorectomy sample (specimen) Marin Shmoop Comment on above: with LSO 1990 Dr. Rustam mishra Oophorectomy of [place] ining ovary Sridhargory BATRES Comment on above: RSO 1997 Dr. Pozo rectocele repair 5 Prestigos ry [facility] Comment on above: dr. Wallace RSO 6 Prestigosry CRISTY Comment on above: 1997- Dr. Pozo UGI 7 Prestigosry CRISTY Comment on above: normal- Dr. Rodriguez Plan of Treatment Date Care Activity Detail Author Start: 05-24-2032 Screening for malign ant neoplasm of colon [facility] Start: 06-20-2030 DTaP/Tdap/Td vaccine (2 - Td or Tdap) DTaP/Tdap/Td vaccine (2 - Td or Tdap) [facility] Start: 06-20-2030 DTaP/Tdap/Td vaccine (2 - Td) DTaP/Tdap/Td vaccine (2 - Td) [facility] [place] Start: 06-20-2030 Tetanus vaccination Tetanus: Every 1 0yrs [facility] Start: 11-28-2023 Screening for malign ant neoplasm of breast Breast cancer screen [facility] Start: 02-01-2023 End: 02-01-2023 Patient encounter procedure 02/01/2023 9:00 AM EDT Office Visit [facility] [address] [facility] [place] [id number] College Associate, Yves Moore CNP [address] [address] [facility] Start: 11-19-2022 Depression Screen Depression Screen [facility] Start: 06-03-2022 End: 06-03-2022 Patient encounter procedure 06/03/2022 Office Visit Family Medicine Nilson Pan MD [address] [place] [id number] [facility] Start: 05-10-2022 End: 05-10-2022 Patient encounter procedure 05/10/2022 Appointment Radiology [facility] Ultrasound Start: 04-29-2022 Influenza vaccination Flu vaccine (# 1) [facility] Start: 2022 Influenza vaccination Flu vaccine (# 1) [facility] Start: 02-06-2022 COVID-19 Vaccine (5 - Booster for Moderna series) COVID-19 Vaccine (5 - Booster for Moderna series) [facility] Start: 10-22-2021 Colon cancer screen colonoscopy Colon cancer screen colonoscopy [place], [place] Start: 10-22-2021 Screening for malign ant neoplasm of colon [facility] Start: 03-26-2021 COVID-19 Vaccine (2 - Booster for Sabina series) COVID-19 Vaccine (2 - Booster for Sabina series) [facility] Start: 06-09-2020 Pneumococcal 65+ yea rs Vaccine (2 - PPSV23 if available, else PCV20) Pneumococcal 65+ years Vaccine (2 - PPSV23 if available, else PCV20) [facility] Start: 06-09-2020 Pneumococcal 65+ yea rs Vaccine (2 - PPSV23 or PCV20) Pneumococcal 65+ years Vaccine (2 - PPSV23 or PCV20) [facility] Start: 06-09-2020 Pneumococcal 65+ yea rs Vaccine (2 of 2 - PPSV23) Pneumococcal 65+ years Vaccine (2 of 2 - PPSV23) [facility] Start: 06-14-2019 Breast cancer screen Breast cancer s creen [place], [place] Start: 06-14-2019 Screening for malign ant neoplasm of breast Breast cancer screen [facility] Start: 2019 Fall risk assessment Falls Risk Asse ssment [facility] Start: 2019 Pneumococcal 65+ yea rs Vaccine (2 of 2 - PPSV23) Pneumococcal 65+ years Vaccine (2 of 2 - PPSV23) [place], [place] Start: 06-04-2016 Lipid panel [facility] Start: 06-04-2016 Lipid screen Lipid screen [place], [place] Start: 2009 DEXA (modify frequen cy per FRAX score) DEXA (modify frequency per FRAX score) [place], [place] Start: 2009 Screening for osteoporosis DEXA (modify frequency per FRAX score) [facility] Start: 2004 Screening for malign ant neoplasm of colon Flexible sigmoidoscopy [facility] Start: 2004 Shingles Vaccine (1 of 2) Shingles Vaccine (1 of 2) [place] Start: 1999 Screening for malign ant neoplasm of colon [facility] Start: 1994 Diabetes screen Diabetes screen [place], [place] Start: 1994 Screening for malign ant neoplasm of breast Mammogram [facility] Start: 1975 Cervical cancer screen Cervical canc er screen [place], [place] Start: 1973 DTaP/Tdap/Td vaccine (1 - Tdap) DTaP/Tdap/Td vaccine (1 - Tdap) [facility] Start: 1972 Hepatitis C screening [facility] Start: 1969 HIV screen HIV screen [place], [place] Start: 1966 Depression screening using PHQ-9 (Patient Health Questionnaire 9) score Depression Screening (PHQ-2/9) [facility] Start: 1957 History and physical examination, annual for health maintenance Wellness Visit [facility] Start: 1954 Hepatitis C screen Hepatitis C yumiko whitten [facility] [place] Start: 1954 Hepatitis C screening Hepatitis C sc chrissy [facility] [employer] Start: 1954 Screening for malign ant neoplasm of colon [facility] Start: 1954 Screening for osteoporosis Dexa Scan [facility] End: 11-27-2021 DEXA BONE DENSITY 2 SITES [employer] Phone: Comment on above: 1 Occurrences starti ng 11/27/2021 until 11/27/2021 EKG 12 Lead EKG 12 Lead ECG Routine 12/11/2022 8:14 AM EDT [email or web address] Phone: End: 11-27-2021 ASIF KEITH DIGITAL SCREEN BILATERAL [employer] Phone: Comment on above: 1 Occurrences starti ng 11/27/2021 until 11/27/2021 XR CHEST PORTABLE XR CHEST KEILA BLE Imaging STAT 12/11/2022 8:28 AM EDT [employer] [facility] Work Phone: XR CHEST STANDARD (2 VW) XR CHES T STANDARD (2 VW) Imaging STAT 11/30/2019 5:14 PM EDT [place], [place] Immunizations Immunization Date Immunization Notes Care Provider [facility] 05-27-2023 influenza virus vaccine, unspecified formulation SELF REFERRAL [facility] 05-27-2023 SARS-CoV-2 mRNA (tofrancoeran 5y-11y) vaccine SELF REFERRAL [facility] 07-23-2022 COVID-19, mRNA, LNP- S, bivalent, PF, 50 mcg/0.5 mL dose Marin BATRES [facility] 07-23-2022 influenza, high dose seasonal, preservative-free Marin BATRES [facility] 12-12-2021 SARS-CoV-2 (COVID-19 ) mRNA-1273 vaccine Marin BATRES [facility] 07-07-2021 COVID-19, Moderna, Booster, PF, 50mcg/0.25ml [facility] 05-01-2021 influenza, high dose seasonal, preservative-free [facility] Work Phone: 01-29-2021 COVID-19, Moderna, Primary or Immunocompromised, PF, 100mcg/0.5mL [facility] Work Phone: 01-29-2021 SARS-CoV-2 (COVID-19 ) Ad26 vaccine, recombinant Marin BATRES [facility] Comment on above: Result Comment: elizabethn @ [facility] 01-01-2021 COVID-19, Moderna, Primary or Immunocompromised, PF, 100mcg/0.5mL [facility] Work Phone: 01-01-2021 SARS-CoV-2 (COVID-19 ) Ad26 vaccine, recombinant Marin BATRES [facility] Comment on above: Result Comment: elizabethn @ [facility] 07-14-2020 zoster vaccine recombinant [facility] Work Phone: 07-14-2020 zoster vaccine, live Patrick BATRES [facility] 06-20-2020 pneumococcal polysaccharide vaccine, 23 valent Marin BATRES [facility] 06-20-2020 tetanus toxoid, unspecified formulation Marin BATRES [facility] 04-23-2020 influenza virus vaccine, unspecified formulation Marin BATRES [facility] 04-23-2020 zoster vaccine recombinant [facility] [employer] Work Phone: 04-23-2020 zoster vaccine, live Patrick BATRES [facility] 06-11-2019 influenza virus vaccine, unspecified formulation Marin BATRES [facility] 06-09-2019 influenza virus vaccine, unspecified formulation Rose Mary Raad [facility] 06-09-2019 pneumococcal conjuga te vaccine, 13 valent [facility] Work Phone: 06-16-2018 influenza virus vaccine, unspecified formulation Marin BATRES [facility] 06-16-2018 influenza, injectabl e, quadrivalent, preservative free [facility] Work Phone: 06-05-2018 influenza virus vaccine, unspecified formulation Rose Mary Raad [facility] 06-19-2017 influenza virus vaccine, unspecified formulation Rose Mary Raad [facility] 07-20-2016 pneumococcal conjuga te vaccine, 13 valent [facility] Work Phone: 07-20-2016 zoster vaccine, live Patrick BATRES [facility] 08-13-2015 influenza virus vaccine, unspecified formulation Rose Mary Raad [facility] 06-27-2015 influenza virus vaccine, unspecified formulation Rose Mary Shankar [facility] Payers Date Payer Category Payer Private Health Insurance CIGNA CIGNA HMO/NTWK/OACCESS/OA+/POS [id number] 2022-Present [phone] [address] [place] [address] [id number] 2022 Private Health Insurance [id number] 2022 Private Health Insurance [id number] 2020 Private Health Insurance [facility] [employer] PLAN [id number] 2020-Present [phone] [address] [place] [address] [id number] 2020 Unknown [id number] .[id number] 2019 Medicare MEDICARE MEDICAR E PART A & B [id number] 2019-Present [phone] CGS [id number] [place] [address] [id number] 2018 Private Health Insurance AETNA AETNA xxxxxxxxxx 2018-Present [phone] [address] [place] [id number] xxxxxxxxxx [id number] .[id number] 2016 Unknown BCBS [place] - [place] P PO xxxxxxxxxxxx 2016-Present [address] [place] [address] xxxxxxxxxxxx [id number] .[id number] 1959 Medicare [id number] [id number] .[id number] 1959 Unknown [id number] 1.2.840.268970.1.13.239.2 .7.3.275633.315 1954 Unknown [id number] 2.16.840.1.613201.3.579.2 .593 1954 Unknown [id number] 2.16.840.1.042143.3.579.2 .593 1954 Unknown [id number] 2.16.840.1.005755.3.579.2 .593 1954 Unknown [id number] 2.16.840.1.646717.3.579.2 .903 1954 Unknown [id number] 2.16.840.1.684936.3.579.2 .903 1954 Unknown [id number] 2.16.840.1.505576.3.579.2 .174 1954 Unknown [id number] 2.16.840.1.645741.3.579.2 .174 1954 Unknown [id number] 2.16.840.1.069393.3.579.2 .1259 1954 Unknown [id number] 2.16.840.1.732801.3.579.2 .727 1954 Unknown [id number] 2.16.840.1.388888.3.579.2 .727 1954 Unknown [id number] 2.16.840.1.050305.3.579.2 .727 1954 Unknown [id number] 2.16.840.1.225557.3.579.2 .727 1954 Unknown [id number] 2.16.840.1.485633.3.579.2 .1954 Unknown [id number] 2.16.840.1.763834.3.579.2 .72 1954 Unknown [id number] 2.16.840.1.137545.3.579.2 .1954 Unknown [id number] 2.16.840.1.008702.3.579.2 .1954 Unknown [id number] 2.840.1.075589.3.579.2 1954 Unknown [id number] 2.16.840.1.084378.3.579.2 .1954 Unknown [id number] 2.840.1.027066.3.579.2 1954 Unknown [id number] 2.840.1.728069.3.579.2 1954 Unknown [id number] 2.16840.1.735131.3.579.2 1954 Unknown [id number] 2.16.840.1.434917.3.579.2 1954 Unknown [id number] 2.840.1.302150.3.579.2 1954 Unknown [id number] 2.16840.1.895255.3.579.2 .72 1954 Unknown [id number] 2.16840.1.625529.3.579.2 1954 Unknown [id number] 2.16.840.1.022246.3.579.2 .727 Social History Date Type Detail Facility Start: 08-15-2019 End: 04-06-2024 Tobacco smoking status NHIS Never smoker [facility] Start: 08-15-2019 End: 12-11-2022 Alcohol intake Current non-drinker of alcohol (finding) [facility] [place] Start: 1955 Sex Assigned At Not on file [facility] [place] Exposure to SARS-CoV -2 (event) Unable to assess [facility] [place] Start: 08-15-2019 End: 03-15-2022 Tobacco use and exposure [facility] [place] Start: 07-30-2022 End: 12-11-2022 Exposure to SARS-CoV-2 (event) Not sure [facility] Start: 11-19-2021 History SDOH Financial 5 [employer] Phone: Start: 11-19-2021 End: 12-11-2022 History SDOH Food Worry 1 [employer] Phone: Tobacco smoking status [facility] Sex Assigned At Female [facility] Start: 08-09-2022 End: 12-11-2022 History SDOH Alcohol Std Drinks 0 [facility] [employer] Phone: Functional Status Date Assessment Result Facility 04-06-2024 Functional Status N/A [facility] 12-27-2023 Functional Status N/A [facility] 09-06-2023 Functional Status N/A [facility] 08-26-2023 Functional Status N/A [facility] 08-09-2023 Functional Status N/A [facility] 03-15-2023 Functional Status N/A [facility] 10-18-2022 Functional Status N/A [facility] Clinical Notes 12-06-2021 to 04-06-2024 Yves Jones, QUALITY ASSURANCE TEST PROGRAM MANAGER - 11/30/2022 10:00 AM EDT Note Date & Type Note Facility 04-06-2024 Hospital Discharge instructions Patient Education 04/06/2024 14:40:30 Distal Biceps Tendinitis Distal Biceps Tendinitis Distal biceps tendinitis is inflammation of the distal biceps tendon. This tendon is a strong cord of tissue that connects the biceps muscle on the front of the upper arm to the radius bone in the elbow. Distal biceps tendinitis can interfere with the ability to bend the elbow and to turn the hand palm up (supination). Distal biceps tendinitis may include a grade 1 or grade 2 strain of the tendon. A grade 1 strain is mild. There is a slight pull of the tendon without any stretching or tearing of the tendon. There is also usually no loss of biceps muscle strength. A grade 2 strain is moderate. There is a small tear in the tendon. The tendon is stretched, and biceps muscle strength is usually decreased. This condition is most often caused by overusing the elbow joint and the biceps muscle. It usually heals within 6 weeks. What are the causes? This condition may be caused by: A sudden increase in the frequency or intensity of activity that involves the elbow and the biceps muscle. Overuse of the biceps muscle. This can happen when you do the same movements over and over, such as: ?Turning your hand palm up. ?Forceful straightening (hyperextension) of the elbow. ?Bending of the elbow. A direct, forceful hit or injury (trauma) to the elbow. This is rare. What increases the risk? The following factors may make you more likely to develop this condition: Playing contact sports. Playing sports that involve throwing and overhead movements, including racket sports, gymnastics, weight lifting, or bodybuilding. Doing physical labor. Having poor strength and flexibility of the arm and shoulder. Having injured other parts of the elbow. What are the signs or symptoms? Symptoms of this condition may include: Pain and inflammation in the front of the elbow. Pain may get worse during certain movements, such as: ?Turning your hand palm up. ?Bending your elbow. ?Lifting or carrying objects. ?Throwing. A feeling of warmth in the front of your elbow. A feeling of weakness. A crackling sound (crepitation) when you move or touch the elbow or the upper arm. In some cases, symptoms may return (recur) after treatment, and they may be long-lasting (chronic). How is this diagnosed? This condition is diagnosed based on: Your symptoms. Your medical history. A physical exam. Your health care provider may have you do arm movements to test your range of motion. You may have other tests, including: ?X-rays. ?MRI. How is this treated? Treatment for this condition depends on the severity of the injury. You may be treated by: Resting the injured arm. Avoid flexing the elbow. Applying ice or heat to the injured area. Taking medicines to relieve pain and inflammation. Ultrasound therapy. This applies sound waves to the injured area. Physical therapy. Follow these instructions at home: Managing pain, stiffness, and swelling If directed, put ice on the injured area. ?Put ice in a plastic bag. ?Place a towel between your skin and the bag. ?Leave the ice on for 20 minutes, 2 3 times a day. If directed, apply heat to the affected area before you exercise. Use the heat source that your health care provider recommends, such as a moist heat pack or a heating pad. ?Place a towel between your skin and the heat source. ?Leave the heat on for 20 30 minutes. ?Remove the heat if your skin turns bright red. This is especially important if you are unable to feel pain, heat, or cold. You may have a greater risk of getting burned. Move your fingers often to reduce stiffness and swelling. Raise (elevate) the injured area above the level of your heart while you are sitting or lying down. Activity Do not lift anything that is heavier than 10 lb (4.5 kg), or the limit that you are told, until your health care provider says that it is safe. Avoid activities that cause pain or make your condition worse. Return to your normal activities as told by your health care provider. Ask your health care provider what activities are safe for you. Do exercises as told by your health care provider. General instructions Take nmqe-myf-tblsqoo and prescription medicines only as told by your health care provider. Do not use any products that contain nicotine or tobacco, such as cigarettes, e-cigarettes, and chewing tobacco. These can delay healing. If you need help quitting, ask your health care provider. Keep all follow-up visits as told by your health care provider. This is important. How is this prevented? Warm up and stretch before being active. Cool down and stretch after being active. Give your body time to rest between periods of activity. Make sure to use equipment that fits you. Be safe and responsible while being active. This will help you avoid falls. Maintain physical fitness, including: ?Strength. ?Flexibility. ?Heart health (cardiovascular fitness). ?The ability to use muscles for a long time (endurance). Contact a health care provider if: You have symptoms that get worse or do not get better after 2 weeks of treatment. You develop new symptoms. Get help right away if: You develop severe pain. Summary Distal biceps tendinitis is inflammation of the distal biceps tendon. This injury is caused by a sudden increase in the frequency or intensity of activity or overuse of the biceps muscle. Distal biceps tendinitis can interfere with the ability to bend the elbow and to turn the hand palm up. This condition is treated with rest, ice, heat, physical therapy, and pain medicines if needed. Follow activity and lifting restrictions as told by your health care provider. This information is not intended to replace advice given to you by your health care provider. Make sure you discuss any questions you have with your health care provider. Document Revised: 10/08/2021 Document Reviewed: 10/08/2021 [employer] Patient Education 2022 [employer]. Follow Up Care 04/06/2024 09:14:16 With:GISEL RAMIREZ, ELLEN Saba Address: When: only if needed Comments:call update 2-3 weeks about left arm pain [facility] [place] 04-06-2024 Note Patient Education Orthopedics Distal Biceps Tendinitis Distal biceps tendinitis is inflammation of the distal biceps tendon. This tendon is a strong cord of tissue that connects the biceps muscle on the front of the upper arm to the radius bone in the elbow. Distal biceps tendinitis can interfere with the ability to bend the elbow and to turn the hand palm up (supination). Distal biceps tendinitis may include a grade 1 or grade 2 strain of the tendon. ? A grade 1 strain is mild. There is a slight pull of the tendon without any stretching or tearing of the tendon. There is also usually no loss of biceps muscle strength. ? A grade 2 strain is moderate. There is a small tear in the tendon. The tendon is stretched, and biceps muscle strength is usually decreased. This condition is most often caused by overusing the elbow joint and the biceps muscle. It usually heals within 6 weeks. What are the causes? This condition may be caused by: ? A sudden increase in the frequency or intensity of activity that involves the elbow and the biceps muscle. ? Overuse of the biceps muscle. This can happen when you do the same movements over and over, such as: ? Turning your hand palm up. ? Forceful straightening (hyperextension) of the elbow. ? Bending of the elbow. ? A direct, forceful hit or injury (trauma) to the elbow. This is rare. What increases the risk? The following factors may make you more likely to develop this condition: ? Playing contact sports. ? Playing sports that involve throwing and overhead movements, including racket sports, gymnastics, weight lifting, or bodybuilding. ? Doing physical labor. ? Having poor strength and flexibility of the arm and shoulder. ? Having injured other parts of the elbow. What are the signs or symptoms? Symptoms of this condition may include: ? Pain and inflammation in the front of the elbow. Pain may get worse during certain movements, such as: ? Turning your hand palm up. ? Bending your elbow. ? Lifting or carrying objects. ? Throwing. ? A feeling of warmth in the front of your elbow. ? A feeling of weakness. ? A crackling sound (crepitation) when you move or touch the elbow or the upper arm. In some cases, symptoms may return (recur) after treatment, and they may be long-lasting (chronic). How is this diagnosed? This condition is diagnosed based on: ? Your symptoms. ? Your medical history. ? A physical exam. Your health care provider may have you do arm movements to test your range of motion. ? You may have other tests, including: ? X-rays. ? MRI. How is this treated? Treatment for this condition depends on the severity of the injury. You may be treated by: ? Resting the injured arm. Avoid flexing the elbow. ? Applying ice or heat to the injured area. ? Taking medicines to relieve pain and inflammation. ? Ultrasound therapy. This applies sound waves to the injured area. ? Physical therapy. Follow these instructions at home: Managing pain, stiffness, and swelling ? If directed, put ice on the injured area. ? Put ice in a plastic bag. ? Place a towel between your skin and the bag. ? Leave the ice on for 20 minutes, 2?3 times a day. ? If directed, apply heat to the affected area before you exercise. Use the heat source that your health care provider recommends, such as a moist heat pack or a heating pad. ? Place a towel between your skin and the heat source. ? Leave the heat on for 20?30 minutes. ? Remove the heat if your skin turns bright red. This is especially important if you are unable to feel pain, heat, or cold. You may have a greater risk of getting burned. ? Move your fingers often to reduce stiffness and swelling. ? Raise (elevate) the injured area above the level of your heart while you are sitting or lying down. Activity ? Do not lift anything that is heavier than 10 lb (4.5 kg), or the limit that you are told, until your health care provider says that it is safe. ? Avoid activities that cause pain or make your condition worse. ? Return to your normal activities as told by your health care provider. Ask your health care provider what activities are safe for you. ? Do exercises as told by your health care provider. General instructions ? Take gtvf-lpu-orbhfav and prescription medicines only as told by your health care provider. ? Do not use any products that contain nicotine or tobacco, such as cigarettes, e-cigarettes, and chewing tobacco. These can delay healing. If you need help quitting, ask your health care provider. ? Keep all follow-up visits as told by your health care provider. This is important. How is this prevented? ? Warm up and stretch before being active. ? Cool down and stretch after being active. ? Give your body time to rest between periods of activity. ? Make sure to use equipment that fits you. (more content not included)... [facility] 12-27-2023 Hospital Discharge instructions Patient Education 12/26/2023 22:12:21 Generalized Anxiety Disorder, Adult Generalized Anxiety Disorder, Adult Generalized anxiety disorder (JUVENAL) is a mental health condition. Unlike normal worries, anxiety related to JUVENAL is not triggered by a specific event. These worries do not fade or get better with time. JUVENAL interferes with relationships, work, and school. JUVENAL symptoms can vary from mild to severe. People with severe JUVENAL can have intense waves of anxiety with physical symptoms that are similar to panic attacks. What are the causes? The exact cause of JUVENAL is not known, but the following are believed to have an impact: Differences in natural brain chemicals. Genes passed down from parents to children. Differences in the way threats are perceived. Development and stress during childhood. Personality. What increases the risk? The following factors may make you more likely to develop this condition: Being female. Having a family history of anxiety disorders. Being very shy. Experiencing very stressful life events, such as the of a loved one. Having a very stressful family environment. What are the signs or symptoms? People with JUVENAL often worry excessively about many things in their lives, such as their health and family. Symptoms may also include: Mental and emotional symptoms: ?Worrying excessively about natural disasters. ?Fear of being late. ?Difficulty concentrating. ?Fears that others are judging your performance. Physical symptoms: ?Fatigue. ?Headaches, muscle tension, muscle twitches, trembling, or feeling shaky. ?Feeling like your heart is pounding or beating very fast. ?Feeling out of breath or like you cannot take a deep breath. ?Having trouble falling asleep or staying asleep, or experiencing restlessness. ?Sweating. ?Nausea, diarrhea, or irritable bowel syndrome (IBS). Behavioral symptoms: ?Experiencing erratic moods or irritability. ?Avoidance of new situations. ?Avoidance of people. ?Extreme difficulty making decisions. How is this diagnosed? This condition is diagnosed based on your symptoms and medical history. You will also have a physical exam. Your health care provider may perform tests to rule out other possible causes of your symptoms. To be diagnosed with JUVENAL, a person must have anxiety that: Is out of his or her control. Affects several different aspects of his or her life, such as work and relationships. Causes distress that makes him or her unable to take part in normal activities. Includes at least three symptoms of JUVENAL, such as restlessness, fatigue, trouble concentrating, irritability, muscle tension, or sleep problems. Before your health care provider can confirm a diagnosis of JUVENAL, these symptoms must be present more days than they are not, and they must last for 6 months or longer. How is this treated? This condition may be treated with: Medicine. Antidepressant medicine is usually prescribed for long-term daily control. Anti-anxiety medicines may be added in severe cases, especially when panic attacks occur. Talk therapy (psychotherapy). Certain types of talk therapy can be helpful in treating JUVENAL by providing support, education, and guidance. Options include: ?Cognitive behavioral therapy (CBT). People learn coping skills and self-calming techniques to ease their physical symptoms. They learn to identify unrealistic thoughts and behaviors and to replace them with more appropriate thoughts and behaviors. ?Acceptance and commitment therapy (ACT). This treatment teaches people how to be mindful as a way to cope with unwanted thoughts and feelings. ?Biofeedback. This process trains you to manage your body's response (physiological response) through breathing techniques and relaxation methods. You will work with a therapist while machines are used to monitor your physical symptoms. Stress management techniques. These include yoga, meditation, and exercise. A mental health specialist can help determine which treatment is best for you. Some people see improvement with one type of therapy. However, other people require a combination of therapies. Follow these instructions at home: Lifestyle Maintain a consistent routine and schedule. Anticipate stressful situations. Create a plan and allow extra time to work with your plan. Practice stress management or self-calming techniques that you have learned from your therapist or your health care provider. Exercise regularly and spend time outdoors. Eat a healthy diet that includes plenty of vegetables, fruits, whole grains, low-fat dairy products, and lean protein. ?Do not eat a lot of foods that are high in fat, added sugar, or salt (sodium). ?Drink plenty of water. Avoid alcohol. Alcohol can increase anxiety. Avoid caffeine and certain uasi-xkm-cxjznaf cold medicines. These may make you feel worse. Ask your pharmacist which medicines to avoid. General instructions Take erbv-djb-ydetxui and prescription medicines only as told by your health care provider. Understand that you are likely to have setbacks. Accept this and be kind to yourself as you persist to take better care of yourself. Anticipate stressful situations. Create a plan and allow extra time to work with your plan. Recognize and accept your accomplishments, even if you buyer broker them as small. Spend time with people who care about you. Keep all follow-up visits. This is important. Where to find more information National [place] of Mental Health: www.nimh.nih.gov Substance Abuse and Mental Health Services: www.samhsa.gov Contact a health care provider if: Your symptoms do not get better. Your symptoms get worse. You have signs of depression, such as: ?A persistently sad or irritable mood. ?Loss of enjoyment in activities that used to bring you brice. ?Change in weight or eating. ?Changes in sleeping habits. Get help right away if: You have thoughts about hurting yourself or others. If you ever feel like you may hurt yourself or others, or have thoughts about taking your own life, get help right away. Go to your nearest emergency department or: Call your local emergency services (976 in the [place] Call a suicide crisis helpline, such as the National Suicide Prevention Lifeline at or 873 in the [place] This is open 24 hours a day in the [place] Text the Crisis Text Line at 457714 (in the [place] Summary Generalized anxiety disorder (JUVENAL) is a mental health condition that involves worry that is not triggered by a specific event. People with JUVENAL often worry excessively about many things in their lives, such as their health and family. JUVENAL may cause symptoms such as restlessness, trouble concentrating, sleep problems, frequent sweating, nausea, diarrhea, headaches, and trembling or muscle twitching. A mental health specialist can help determine which treatment is best for you. Some people see improvement with one type of therapy. However, other people require a combination of therapies. This information is not intended to replace advice given to you by your health care provider. Make sure you discuss any questions you have with your health care provider. Document Revised: 03/10/2022 Document Reviewed: 12/06/2021 EventWith Patient Education 2022 [employer]. Follow Up Care 12/26/2023 14:28:31 With:Marin BATRES MD, FAM Address: When:6 weeks Comments:chloé ramirez [facility] 12-24-2023 Hospital Discharge instructions Patient Education 12/24/2023 13:45:50 Breast Cancer, Female Breast Cancer, Female Breast cancer is a malignant growth of tissue (tumor) in the breast. Unlike noncancerous (benign) tumors, malignant tumors are cancerous and can spread to other parts of the body. The two most common types of breast cancer start in the milk ducts (ductal carcinoma) or in the lobules where milk is made in the breast (lobular carcinoma). Breast cancer is one of the most common types of cancer in women. What are the causes? The exact cause of female breast cancer is unknown. What increases the risk? The following factors may make you more likely to develop this condition: Being older than 55 years of age. Having a family history of breast cancer. Starting menopause after age 55. Starting your menstrual periods before age 12. Having never been or having your first child after age 30. Having never breastfed. A personal history of: ?Breast cancer. ?Dense breast tissue. ?Radiation exposure. ?Having the BRCA1 and BRCA2 genes. ?Having certain types of benign breast conditions. ?Exposure to the drug STEVE, which was given to women from the 1940s to the . Other risks include: Using control pills. Using hormone therapy after menopause. Drinking more than one alcoholic drink a day. Obesity. What are the signs or symptoms? Symptoms of this condition include: A painless lump or thickening in your breast. Changes in the size or shape of your breast. Breast skin changes, such as puckering or dimpling. Nipple abnormalities, such as scaling, crustiness, redness, or pulling in (retraction). Nipple discharge that is bloody or clear. How is this diagnosed? This condition may be diagnosed by: Taking your medical history and doing a physical exam. During the exam, your health care provider will feel the tissue around your breast and under your arms. Taking a sample of nipple discharge. The sample will be examined under a microscope. Performing imaging tests, such as breast X-rays (mammogram), ultrasound, or MRI. Taking a tissue sample (biopsy) from the breast. The sample will be examined under a microscope to look for cancer cells. Taking a sample from the lymph nodes near the affected breast (sentinel node biopsy). Your cancer will be staged to determine its severity and extent. Staging is a careful attempt to find out the size of the tumor, whether the cancer has spread, and if so, to what parts of the body. Staging also includes testing your tumor for certain receptors, such as estrogen, progesterone, and human epidermal growth factor receptor 2 (HER2). This will help your cancer care team decide on a treatment that will work best for you. You may need to have more tests to determine the stage of your cancer. Stages include the following: Stage 0 The tumor has not spread to other breast tissue. Stage 1 (I) The cancer is only found in the breast or may be in the lymph nodes. The tumor may be up to inch (2 cm) wide. Stage 2 (II) The cancer has spread to nearby lymph nodes. The tumor may be up to 2 inches (5 cm) wide. Stage 3 (III) The cancer has spread to more distant lymph nodes. The tumor may be larger than 2 inches (5 cm) wide. Stage 4 (IV) The cancer has spread to other parts of the body, such as the bones, brain, liver, or lungs. How is this treated? Treatment for this condition depends on the type and stage of the breast cancer. It may be treated with: Surgery. This may involve breast-conserving surgery (lumpectomy or partial mastectomy) in which only the part of the breast containing the cancer is removed. Some normal tissue surrounding this area may also be removed. In some cases, surgery may be done to remove the entire breast (mastectomy) and nipple. Lymph nodes may also be removed. Radiation therapy, which uses high-energy rays to kill cancer cells. Chemotherapy, which is the use of medicines to kill cancer cells. Hormone therapy, which involves taking medicine to adjust the hormone levels in your body. You may take medicine to decrease your estrogen levels. This can help stop cancer cells from growing. Targeted therapy, in which medicines are used to block the growth and spread of cancer cells. These medicines target a specific part of the cancer cell and usually cause fewer side effects than chemotherapy. Targeted therapy may be used alone or in combination with chemotherapy. Immunotherapy, which is the use of medicines to boost the immune system to recognize and destroy cancer cells more effectively. A combination of surgery, radiation, chemotherapy, or hormone therapy may be needed to treat breast cancer. Follow these instructions at home: Take vigy-uai-nqytoqq and prescription medicines only as told by your health care provider. Eat a healthy diet. A healthy diet includes lots of fruits and vegetables, low-fat dairy products, lean meats, and fiber. ?Make sure half your plate is filled with fruits or vegetables. ?Choose high-fiber foods such as whole-grain breads and cereals. Consider joining a support group. This may help you cope with the stress of having breast cancer. Talk to your health care team about exercise and physical activity. The right exercise program can: ?Help prevent or reduce symptoms such as fatigue or depression. ?Improve overall health and survival rates. Keep all follow-up visits. This is important. Where to find more information [place] [employer]: www.cancer.org National Cancer [place]: www.cancer.gov Contact a health care provider if: You have a sudden increase in pain. You have any symptoms or changes that concern you. You lose weight without trying. You notice a new lump in either breast or under your arm. You develop swelling in either arm or hand. You have a fever. You notice new fatigue or weakness. Get help right away if: You have chest pain or trouble breathing. These symptoms may be an emergency. Get help right away. Call 911. Do not wait to see if the symptoms will go away. Do not drive yourself to the hospital. Summary Breast cancer is a malignant growth of tissue (tumor) in the breast. Your cancer will be staged to determine its severity and extent. Treatment for this condition depends on the type and stage of the breast cancer. This information is not intended to replace advice given to you by your health care provider. Make sure you discuss any questions you have with your health care provider. Document Revised: 07/05/2022 Document Reviewed: 07/05/2022 EventWith Patient Education 2022 [employer]. 12/24/2023 13:43:31 Major Depressive Disorder, Adult, [place] Major Depressive Disorder, Adult Major depressive disorder is a mental health condition. This disorder affects feelings. It can also affect the body. Symptoms of this condition last most of the day, almost every day, for 2 weeks. This disorder can affect: Relationships. Daily activities, such as work and school. Activities that you normally like to do. What are the causes? The cause of this condition is not known. The disorder is likely caused by a mix of things, including: Your personality, such as being a shy person. Your behavior, or how you act toward others. Your thoughts and feelings. Too much alcohol or drugs. How you react to stress. Health and mental problems that you have had for a long time. Things that hurt you in the past (trauma). Big changes in your life, such as divorce. What increases the risk? The following factors may make you more likely to develop this condition: Having family members with depression. Being a woman. Problems in the family. Low levels of some brain chemicals. Things that caused you pain as a child, especially if you lost a parent or were abused. A lot of stress in your life, such as from: ?Living without basic needs of life, such as food and group home. ?Being treated poorly because of race, sex, or christian (discrimination). Health and mental problems that you have had for a long time. What are the signs or symptoms? The main symptoms of this condition are: Being sad all the time. Being grouchy all the time. Loss of interest in things and activities. Other symptoms include: Sleeping too much or too little. Eating too much or too little. Gaining or losing weight, without knowing why. Feeling tired or having low energy. Being restless and weak. Feeling hopeless, worthless, or guilty. Trouble thinking clearly or making decisions. Thoughts of hurting yourself or others, or thoughts of ending your life. Spending a lot of time alone. Inability to complete common tasks of daily life. If you have very bad MDD, you may: Believe things that are not true. Hear, see, taste, or feel things that are not there. Have mild depression that lasts for at least 2 years. Feel very sad and hopeless. Have trouble speaking or moving. How is this treated? This condition may be treated with: Talk therapy. This teaches you to know bad thoughts, feelings, and actions and how to change them. ?This can also help you to communicate with others. ?This can be done with members of your family. Medicines. These can be used to treat worry (anxiety), depression, or low levels of chemicals in the brain. Lifestyle changes. You may need to: ?Limit alcohol use. ?Limit drug use. ?Get regular exercise. ?Get plenty of sleep. ?Make healthy eating choices. ?Spend more time outdoors. Brain stimulation. This treatment excites the brain. This is done when symptoms are very bad or have not gotten better with other treatments. Follow these instructions at home: Activity Get regular exercise as told. Spend time outdoors as told. Make time to do the things you enjoy. Find ways to deal with stress. Try to: ?Meditate. ?Do deep breathing. ?Spend time in nature. ?Keep a journal. Return to your normal activities as told by your doctor. Ask your doctor what activities are safe for you. Alcohol and drug use If you drink alcohol: ?Limit how much you use to: ?0 1 drink a day for women. ?0 2 drinks a day for men. ?Be aware of how much alcohol is in your drink. In the [place] one drink equals one 12 oz bottle of beer (355 mL), one 5 oz glass of wine (148 mL), or one 1 oz glass of hard liquor (44 mL). Talk to your doctor about: ?Alcohol use. Alcohol can affect some medicines. ?Any drug use. General instructions Take ogpa-frf-xdumvmr and prescription medicines and herbal preparations only as told by your doctor. Eat a healthy diet. Get a lot of sleep. Think about joining a support group. Your doctor may be able to suggest one. Keep all follow-up visits as told by your doctor. This is important. Where to find more information: National [place] on Mental Illness: www.armand.org [place] National [place] of Mental Health: www.nimh.nih.gov [employer]: www.psychiatry.org/patients-fami lies/ Contact a doctor if: Your symptoms get worse. You get new symptoms. Get help right away if: You hurt yourself. You have serious thoughts about hurting yourself or others. You see, hear, taste, smell, or feel things that are not there. If you ever feel like you may hurt yourself or others, or have thoughts about taking your own life, get help right away. Go to your nearest emergency department or: Call your local emergency services (522 in the [place] Call a suicide crisis helpline, such as the National Suicide Prevention Lifeline at or 314 in the [place] This is open 24 hours a day in the [place] Text the Crisis Text Line at 859744 (in the [place] Summary Major depressive disorder is a mental health condition. This disorder affects feelings. Symptoms of this condition last most of the day, almost every day, for 2 weeks. The symptoms of this disorder can cause problems with relationships and with daily activities. There are treatments and support for people who get this disorder. You may need more than one type of treatment. Get help right away if you have serious thoughts about hurting yourself or others. This information is not intended to replace advice given to you by your health care provider. Make sure you discuss any questions you have with your health care provider. Document Revised: 03/10/2022 Document Reviewed: 07/26/2020 [employer] Patient Education 2022 [employer]. [facility] 09-20-2023 Evaluation + Plan note Diagnostic Tests PendingANA w/Reflex if POS 09/20/23Rheumatoid Factor Quantitative 09/20/23 [facility] 09-17-2023 Hospital Discharge instructions Patient Education 09/17/2023 15:39:37 Arthritis, Nyfg-tm-Ofux Arthritis Arthritis means joint pain. It can also mean joint disease. A joint is a place where bones come together. There are more than 100 types of arthritis. What are the causes? Wear and tear of a joint. This is the most common cause. Too much of a chemical called uric acid in the blood, which leads to pain in the joint (gout). Pain and swelling (inflammation) in a joint. Infection of a joint. Injuries in the joint. A reaction to medicines (allergy). In some cases, the cause may not be known. What are the signs or symptoms? Pain in a joint when moving. Redness at a joint. Swelling at a joint. Stiffness at a joint. Warmth coming from the joint. A fever. A feeling of being sick. How is this treated? This condition may be treated with: Treating the cause, if it is known. Rest. Raising (elevating) the joint. Putting cold or hot packs on the joint. Medicines to treat symptoms and reduce pain and swelling. Shots (injections) of medicines, such as cortisone, into the joint. You may also be told to make changes in your life, such as doing exercises and losing weight. Follow these instructions at home: Medicines Take vjkg-trc-pngoyef and prescription medicines only as told by your doctor. Do not take aspirin for pain if your doctor says that you may have gout. Activity Rest your joint if your doctor tells you to. Avoid activities that make the pain worse. Exercise your joint regularly as told by your doctor. Try doing exercises like: ?Swimming. ?Water aerobics. ?Biking. ?Walking. Managing pain, stiffness, and swelling If told, put ice on the affected area. To do this: ?Put ice in a plastic bag. ?Place a towel between your skin and the bag. ?Leave the ice on for 20 minutes, 2 3 times a day. ?Take off the ice if your skin turns bright red. This is very important. If you cannot feel pain, heat, or cold, you have a greater risk of damage to the area. If your joint is swollen, raise (elevate) it above the level of your heart if told by your doctor. If your joint feels stiff in the morning, try taking a warm shower. If told, put heat on the affected area. Do this as often as told by your doctor. Use the heat source that your doctor recommends, such as a moist heat pack or a heating pad. If you have diabetes, do not apply heat without asking your doctor. To apply heat: ?Place a towel between your skin and the heat source. ?Leave the heat on for 20 30 minutes. ?Take off the heat if your skin turns bright red. This is very important. If you cannot feel pain, heat, or cold, you have a greater risk of getting burned. General instructions Maintain a healthy weight. Follow instructions from your doctor for weight control. Do not smoke or use any products that contain nicotine or tobacco. If you need help quitting, ask your doctor. Keep all follow-up visits. Where to find more information National Institutes of Health: www.niams.nih.gov Contact a doctor if: The pain gets worse. You have a fever. Get help right away if: You have very bad pain in your joint. You have swelling in your joint. Your joint is red. Many joints become painful and swollen. You have very bad back pain. Your leg is very weak. Summary Arthritis means joint pain. It can also mean joint disease. A joint is a place where bones come together. The most common cause of this condition is wear and tear of a joint. Symptoms of this condition include redness, swelling, or stiffness of the joint. This condition is treated with rest, raising the joint, medicines, and putting cold or hot packs on the joint. Follow your doctor's instructions about medicines, activity, exercises, and other home care treatments. This information is not intended to replace advice given to you by your health care provider. Make sure you discuss any questions you have with your health care provider. Document Revised: 05/25/2022 Document Reviewed: 05/25/2022 [employer] Patient Education 2022 [employer]. Follow Up Care 09/15/2023 11:17:56 With:Marin BATRES MD, FAM Address: When: only if needed Comments:labs to be called [facility] 09-06-2023 Hospital Discharge instructions Patient Education 09/06/2023 19:16:02 Lichen Planus Lichen Planus Lichen planus is a skin problem that causes redness, itching, small bumps, and sores. It can affect the skin in any area of the body. Some common areas that are affected include: Arms, wrists, legs, or ankles. Chest, back, or abdomen. Genital areas. Gums and inside of the mouth. Scalp. Fingernails or toenails. Treatment can help control the symptoms of this condition. The condition can last for a long time. It can take 6 18 months or longer for it to go away. What are the causes? The exact cause of this condition is not known. The condition is not passed from one person to another (not contagious). It may be related to an allergy, a medicine, or an autoimmune response. An autoimmune response occurs when the body's defense system (immune system) mistakenly attacks healthy tissues. What increases the risk? The following factors may make you more likely to develop this condition: Being 30 60 years of age. Taking certain medicines. Having been exposed to certain dyes or chemicals. Having hepatitis C. What are the signs or symptoms? Symptoms of this condition may include: Itching, which can be severe. Small reddish or purple bumps on the skin. These may have flat tops and may be round or irregular shaped. Redness or white patches on the gums or tongue. Redness, soreness, or a burning feeling in the genital area. This may lead to pain or bleeding during sex. Changes in the fingernails or toenails. The nails may become thin or rough. They may have ridges in them. Redness or irritation of the eyes. This is rare. How is this diagnosed? This condition may be diagnosed based on: A physical exam. The health care provider will examine your affected skin and check for changes inside your mouth. Removal of a tissue sample to be looked at under a microscope (biopsy). How is this treated? Treatment for this condition may depend on the severity of symptoms. In some cases, no treatment is needed. If treatment is needed to control symptoms, it may include: Creams or ointments (topical steroids) to help control itching and irritation. Medicine to be taken by mouth. Medicine to be taken by injection. A treatment in which your skin is exposed to ultraviolet light (phototherapy). Lozenges to suck on to help treat sores in the mouth. Follow these instructions at home: Skin care Use creams or ointments as told by your health care provider. To soothe itching skin: ?Apply cool, wet cloths (cold compresses) to the affected area. ?Take cool baths. Add dry oatmeal to the water. Do not bathe in hot water. Do not scratch your skin. To help prevent scratching: ?Keep your fingernails short and clean. ?Cover the affected area with a bandage. Wash the affected area with mild soap and cool water as told by your health care provider. Keep the genital area as clean and dry as possible. General instructions Take or use rtic-wgh-dbdmoyp and prescription medicines only as told by your health care provider. If you have sores in your mouth, avoid spicy and acidic foods as well as alcohol and tobacco. Keep all follow-up visits. Contact a health care provider if: You have increasing redness, swelling, or pain in the affected area. You have fluid, blood, or pus coming from the affected area. Your eyes become irritated. You have hair loss. Summary Lichen planus is a skin problem that causes redness, itching, small bumps, and sores. It can affect the skin in any area of the body. Do not scratch your skin. Apply cool, wet cloths (cold compresses) on the affected areas or take cool baths to soothe itching. Take or use jepo-iuo-bjrccev and prescription medicines only as told by your health care provider. Contact a health care provider if you have drainage from the affected area or have increasing redness, swelling, or pain in the area. Keep all follow-up visits. This information is not intended to replace advice given to you by your health care provider. Make sure you discuss any questions you have with your health care provider. Document Revised: 10/13/2022 Document Reviewed: 10/13/2022 [employer] Patient Education 2022 [employer]. 09/06/2023 09:55:08 Canker Sores Canker Sores Canker sores are small, painful sores that develop inside the mouth. You can get one or more canker sores on the inside of your lips or cheeks, on your tongue, or anywhere inside your mouth. Canker sores cannot be passed from person to person (are not contagious). These sores are different from the sores that you may get on the outside of your lips (cold sores or fever blisters). What are the causes? The cause of this condition is not known. The condition may be passed down from a parent (genetic). What increases the risk? This condition is more likely to develop in: Females. People in their teens or 20s. Females who are having their menstrual period. People who are under a lot of emotional stress. People who do not get enough iron or B vitamins. People who do not take care of their mouth and teeth (have poor oral hygiene). People who have an injury inside the mouth, such as after having dental work or from chewing something hard. What are the signs or symptoms? Canker sores usually start as painful red bumps. Then they turn into small white, yellow, or nayak sores that have red borders. The sores may be painful, and the pain may get worse when you eat or drink. In severe cases, along with the canker sore, symptoms may also include: Fever. Tiredness (fatigue). Swollen lymph nodes in your neck. How is this diagnosed? This condition may be diagnosed based on your symptoms and an exam of the inside of your mouth. If you get canker sores often or if they are very bad, you may have tests, such as: Blood tests to rule out possible causes. Swabbing a fluid sample from the sore to be tested for infection. Removing a small tissue sample from the sore (biopsy). How is this treated? Most canker sores go away without treatment in about 1 week. Home care is usually the only treatment that you will need. Gjab-bwa-gcootlg medicines can relieve discomfort. If you have severe canker sores, your health care provider may prescribe: Numbing ointment to relieve pain. ?Do not use products that contain benzocaine (including numbing gels) to treat teething or mouth pain in children who are younger than 2 years. These products may cause a rare but serious blood condition. Vitamins. Steroid medicines. These may be given as pills, mouth rinses, or gels. Antibiotic mouth rinse. Follow these instructions at home: Apply, take, or use zncw-oag-vjmzbra and prescription medicines only as told by your health care provider. These include vitamins and ointments. If you were prescribed an antibiotic mouth rinse, use it as told by your health care provider. Do not stop using the antibiotic even if your condition improves. Until the sores are healed: ?Do not drink coffee or citrus juices. ?Do not eat spicy or salty foods. Use a mild, jbtt-lvp-iogiifd mouth rinse as recommended by your health care provider. Take good care of your mouth and teeth (oral hygiene) by: ?Flossing your teeth every day. ?Brushing your teeth with a soft toothbrush twice each day. Contact a health care provider if: Your symptoms do not get better after 2 weeks. You also have a fever or swollen glands in your neck. You get canker sores often. You have a canker sore that is getting larger. You cannot eat or drink due to your canker sores. Summary Canker sores are small, painful sores that develop inside the mouth. Canker sores usually start as painful red bumps that turn into small white, yellow, or nayak sores that have red borders. The sores may be painful, and the pain may get worse when you eat or drink. Most canker sores clear up without treatment in about 1 week. Azuo-afr-pjgbtzk medicines can relieve discomfort. This information is not intended to replace advice given to you by your health care provider. Make sure you discuss any questions you have with your health care provider. Document Revised: 05/26/2022 Document Reviewed: 05/26/2022 [employer] Patient Education 2022 [employer]. Follow Up Care 09/06/2023 09:09:30 With:Marin BATRES MD, FAM Address: When: only if needed [facility] 08-26-2023 Hospital Discharge instructions Patient Education 08/25/2023 22:09:54 Oral Thrush, Adult Oral Thrush, Adult Oral thrush, also called oral candidiasis, is a fungal infection that develops in the mouth and throat and on the tongue. It causes white patches to form in the mouth and on the tongue. Many cases of thrush are mild, but this infection can also be serious. Thrush can be a repeated (recurrent) problem for certain people who have a weak body defense system (immune system). The weakness can be caused by chronic illnesses, or by taking medicines that limit the body's ability to fight infection. If a person has difficulty fighting infection, the fungus that causes thrush can spread through the body. This can cause life-threatening blood or organ infections. What are the causes? This condition is caused by a fungus (yeast) called Ela albicans. This fungus is normally present in small amounts in the mouth and on other mucous membranes. It usually causes no harm. If conditions are present that allow the fungus to grow without control, it invades surrounding tissues and becomes an infection. Other Ela species can also lead to thrush, though this is rare. What increases the risk? The following factors may make you more likely to develop this condition: Having a weakened immune system. Being an older adult. Having diabetes, cancer, or HIV (human immunodeficiency virus). Having dry mouth (xerostomia). Being or . Having poor dental care, especially in those who have dentures. Using antibiotic or steroid medicines. What are the signs or symptoms? Symptoms of this condition can vary from mild and moderate to severe and persistent. Symptoms may include: A burning feeling in the mouth and throat. This can occur at the start of a thrush infection. White patches that stick to the mouth and tongue. The tissue around the patches may be red, raw, and painful. If rubbed (during tooth brushing, for example), the patches and the tissue of the mouth may bleed easily. A bad taste in the mouth or difficulty tasting foods. A cottony feeling in the mouth. Pain during eating and swallowing. Poor appetite. Cracking at the corners of the mouth. How is this diagnosed? This condition is diagnosed based on: A physical exam. Your medical history. How is this treated? This condition is treated with medicines called antifungals, which prevent the growth of fungi. These medicines are either applied directly to the affected area (topical) or swallowed (oral). The treatment will depend on the severity of the condition. Mild cases of thrush may be treated with an antifungal mouth rinse or lozenges. Treatment usually lasts about 14 days. Moderate to severe cases of thrush can be treated with oral antifungal medicine, if they have spread to the esophagus. A topical antifungal medicine may also be used. For some severe infections, treatment may need to continue for more than 14 days. ?Oral antifungal medicines are rarely used during because they may be harmful to the unborn child. If you are , talk with your health care provider about options for treatment. Persistent or recurrent thrush. For cases of thrush that do not go away or keep coming back: ?Treatment may be needed twice as long as the symptoms last. ?Treatment will include both oral and topical antifungal medicines. ?People with a weakened immune system can take an antifungal medicine on a continuous basis to prevent thrush infections. It is important to treat conditions that make a person more likely to get thrush, such as diabetes or HIV. Follow these instructions at home: Relieving soreness and discomfort To help reduce the discomfort of thrush: Drink cold liquids such as water or iced tea. Try flavored ice treats or frozen juices. Eat foods that are easy to swallow, such as gelatin, ice cream, or custard. Try drinking from a straw if the patches in your mouth are painful. General instructions Take or use xjky-dvg-stgehjk and prescription medicines only as told by your health care provider. Eat plain, unflavored yogurt as directed by your health care provider. Check the label to make sure the yogurt contains live cultures. This yogurt can help healthy bacteria grow in the mouth and can stop the growth of the fungus that causes thrush. If you wear dentures, remove the dentures before going to bed, brush them vigorously, and soak them in a cleaning solution as directed by your health care provider. Rinse your mouth with a warm salt-water mixture several times a day. To make a salt-water mixture, dissolve 1 tsp (3 6 g) of salt in 1 cup (237 mL) of warm water. Contact a health care provider if: Your symptoms are getting worse or are not improving within 7 days of starting treatment. You have symptoms of a spreading infection, such as white patches on the skin outside of the mouth. You are your baby and you have redness and pain in the nipples. Summary Oral thrush, also called oral candidiasis, is a fungal infection that develops in the mouth and throat and on the tongue. It causes white patches to form in the mouth and on the tongue. You are more likely to get this condition if you have a weakened immune system or an underlying condition, such as HIV, cancer, or diabetes. This condition is treated with medicines called antifungals, which prevent the growth of fungi. Contact a health care provider if your symptoms do not improve, or get worse, within 7 days of starting treatment. This information is not intended to replace advice given to you by your health care provider. Make sure you discuss any questions you have with your health care provider. Document Revised: 04/14/2022 Document Reviewed: 06/20/2020 [employer] Patient Education 2022 [employer]. [facility] 08-09-2023 Hospital Discharge instructions Patient Education 08/09/2023 09:57:34 Oral Mucositis Oral Mucositis Oral mucositis is a mouth condition that may develop as a result of treatments for cancer. Sores may appear on the lips, gums, tongue, throat, and the top (roof) or bottom (floor) of the mouth. What are the causes? This condition is caused when cancer treatments damage the lining of the mouth. This condition can happen to anyone who is being treated with cancer therapies, including: Cancer medicines (chemotherapy) or targeted therapy. Radiation therapy. Bone marrow transplants and stem cell transplants. Oral mucositis is not caused by infection. However, the sores can become infected after they form. Infection can make oral mucositis worse. What increases the risk? The following factors may make you more likely to develop this condition: Having cancers that primarily affect the blood, head, or neck. Receiving radiation therapy alone, or in combination with chemotherapy, to the head and neck region. Undergoing high dose chemotherapy alone or as part of bone marrow or stem cell transplant. In addition, there are other risks, including: Having poor oral hygiene, dental problems or oral diseases. Wearing dentures that do not fit correctly. Having other medical conditions, such as diabetes, HIV, AIDS, or kidney disease. Using products that contain nicotine or tobacco, such as cigarettes, chewing tobacco, and e-cigarettes. Not drinking enough clear fluids. Drinking alcohol. What are the signs or symptoms? Symptoms of this condition include: Mouth sores. These sores may bleed. Color changes inside the mouth. Red, shiny areas may appear. White patches or pus in the mouth. Pain in the mouth and throat. This can make it painful to speak and swallow. Dryness and a burning feeling in the mouth. Saliva that is thick. Trouble eating, drinking, and swallowing. This can lead to weight loss. Symptoms of this condition can vary from mild to severe. Symptoms are usually seen 7 10 days after cancer treatment has started. How is this diagnosed? This condition can be diagnosed with a physical exam. In some cases, lab tests or cultures may be done to check for an associated infection. How is this treated? Treatment depends on the severity of the condition. Oral mucositis often heals on its own. Sometimes, changes in the cancer treatment can help. Treatment may include medicines or therapies, such as: An antibiotic medicine to fight infection. Medicine or therapies that help the cells in your mouth heal more quickly. Chewing on ice before treatment to help prevent mucositis. Medicine may also be given to help control pain. This may include: Pain relievers that are swished around in the mouth (topical anesthetics). These make the mouth numb to ease the pain. Mouth rinses. Prescribed, medicated gels. The gel coats the mouth. This protects nerve endings and lessens the pain. Pain medicines. Follow these instructions at home: Medicines Take or apply lygx-tvo-elpixhd and prescription medicines only as told by your health care provider. If you were prescribed an antibiotic medicine, take or apply it as told by your health care provider. Do not stop using the antibiotic even if you start to feel better. Do not use products that contain benzocaine, including numbing gels, to treat mouth pain in children who are younger than 2 years. These products may cause a rare but serious blood condition. Eating and drinking Talk to a diet and wind farm support specialist (dietitian) about what you should eat and drink if you have mucositis. Drink high-nutrition and high-calorie shakes or supplements. Eat bland and soft foods that are easy to eat. Drink enough fluid to keep your urine pale yellow. Do not eat foods that are hot, spicy, citrus, or hard to swallow. Do not drink alcohol. Try sucking on ice chips or sugar-free frozen pops. This may help with pain. This also keeps your mouth moist. Lifestyle Keep your mouth clean and germ-free. To maintain good oral hygiene: ?Humphrey your teeth carefully with a soft toothbrush at least two times each day. Use a gentle toothpaste. Ask your health care provider to recommend the right toothpaste for you. ?Use a soft sponge (oral swab) to clean your mouth and teeth instead of a toothbrush if mouth sores are severe. ?Floss your teeth every day. ?Have your teeth cleaned regularly as recommended by your dentist. ?Rinse your mouth after every meal or as directed by your health care provider. Do not use mouthwash that contains alcohol. Ask your health care provider for a mouthwash or mouth rinse recommendation. Do not use any products that contain nicotine or tobacco, such as cigarettes, e-cigarettes, and chewing tobacco. If you need help quitting, ask your health care provider. General instructions Follow instructions from your health care provider about: ?Cleaning mouth sores. ?Taking out your dentures. ?Changing your diet or finding other ways to get nutrients. This is important if you are losing weight. If your lips are dry or cracked, apply a water-based moisturizer to your lips as needed. Keep all follow-up visits as told by your health care provider. This is important. Contact a health care provider if: You have mouth pain or throat pain. Your symptoms get worse. You have new symptoms. Your pain is not controlled with medicine. You have trouble speaking. Get help right away if you: Have a fever. Cannot swallow solid food or liquids. Have a lot of bleeding in your mouth. Develop new, open, or draining sores in your mouth. Summary Oral mucositis is a mouth condition that may develop as a result of treatments for cancer. Sores may appear on your lips, gums, tongue, throat, and the top (roof) or bottom (floor) of your mouth. Cancer treatments can damage the lining of the mouth, which causes this condition. Treatment depends on how severe the condition is. It may include medicine or therapies to fight infection, medicine to ease pain, or medicine to help the cells in your mouth heal more quickly. This information is not intended to replace advice given to you by your health care provider. Make sure you discuss any questions you have with your health care provider. Document Revised: 12/22/2022 Document Reviewed: 03/24/2020 [employer] Patient Education 2022 [employer]. Follow Up Care 08/09/2023 08:03:31 With:Marin BATRES MD, FAM Address: When: only if needed [facility] [place] 03-15-2023 Hospital Discharge instructions Patient Education 03/15/2023 13:06:55 Vaginal Yeast Infection, Adult Vaginal Yeast Infection, Adult Vaginal yeast infection is a condition that causes vaginal discharge as well as soreness, swelling, and redness (inflammation) of the vagina. This is a common condition. Some women get this infection frequently. What are the causes? This condition is caused by a change in the normal balance of the yeast (Ela) and normal bacteria that live in the vagina. This change causes an overgrowth of yeast, which causes the inflammation. What increases the risk? The condition is more likely to develop in women who: Take antibiotic medicines. Have diabetes. Take control pills. Are . Douche often. Have a weak body defense system (immune system). Have been taking steroid medicines for a long time. Frequently wear tight clothing. What are the signs or symptoms? Symptoms of this condition include: White, thick, creamy vaginal discharge. Swelling, itching, redness, and irritation of the vagina. The lips of the vagina (labia) may be affected as well. Pain or a burning feeling while urinating. Pain during sex. How is this diagnosed? This condition is diagnosed based on: Your medical history. A physical exam. A pelvic exam. Your health care provider will examine a sample of your vaginal discharge under a microscope. Your health care provider may send this sample for testing to confirm the diagnosis. How is this treated? This condition is treated with medicine. Medicines may be qbvd-kcl-hslvaql or prescription. You may be told to use one or more of the following: Medicine that is taken by mouth (orally). Medicine that is applied as a cream (topically). Medicine that is inserted directly into the vagina (suppository). Follow these instructions at home: Take or apply ofuk-lxn-ornyiva and prescription medicines only as told by your health care provider. Do not use tampons until your health care provider approves. Do not have sex until your infection has cleared. Sex can prolong or worsen your symptoms of infection. Ask your health care provider when it is safe to resume sexual activity. Keep all follow-up visits. This is important. How is this prevented? Do not wear tight clothes, such as pantyhose or tight pants. Wear breathable cotton underwear. Do not use douches, perfumed soap, creams, or powders. Wipe from front to back after using the toilet. If you have diabetes, keep your blood sugar levels under control. Ask your health care provider for other ways to prevent yeast infections. Contact a health care provider if: You have a fever. Your symptoms go away and then return. Your symptoms do not get better with treatment. Your symptoms get worse. You have new symptoms. You develop blisters in or around your vagina. You have blood coming from your vagina and it is not your menstrual period. You develop pain in your abdomen. Summary Vaginal yeast infection is a condition that causes discharge as well as soreness, swelling, and redness (inflammation) of the vagina. This condition is treated with medicine. Medicines may be yorl-ivh-skwatqw or prescription. Take or apply nbgy-qow-pftsdwk and prescription medicines only as told by your health care provider. Do not douche. Resume sexual activity or use of tampons as instructed by your health care provider. Contact a health care provider if your symptoms do not get better with treatment or your symptoms go away and then return. This information is not intended to replace advice given to you by your health care provider. Make sure you discuss any questions you have with your health care provider. Document Revised: 11/02/2021 Document Reviewed: 11/02/2021 [employer] Patient Education 2022 [employer] Follow Up Care 03/15/2023 10:16:09 With:Raad POPE, CADD DRAFTER-QUALITY ASSURANCE TEST PROGRAM MANAGER, Rose Mary Godwin Address: [address] [place] [phone] When: only if needed Comments:if no improvement [facility] 11-30-2022 History of Present illness Narrative ENT New Patient Visit Patient Name: Diana Gerard MR #: [id number] : 1955 Physicians: Nilson Pan MD (Family); Nilson Pan MD (Referring) Chief Complaint/Reason for Visit: postnasal drip History of Present Illness: Diana Gerard is a 67 y.o. y/o female presenting from PCP with c/o PND New patient to me who presents with concerns for postnasal drip that started several years ago and has been constant since onset. Treatment has included Singulair & Protonix for approximately two months in the past with no reported benefit. Other symptoms include nothing. PND described as thin and clear . Denies history of allergies, sinusitis, nasal injury, new medications, or other contributing factors. Has no reported symptoms suggestive of underlying GERD. Denies dysphagia, sore throat, odynophagia, voice changes, fever, or other constitutional symptoms. Patient presents for evaluation. History: Past Medical History: Diagnosis Date Tinnitus History reviewed. No pertinent surgical history. History reviewed. No pertinent family history. Social History Socioeconomic History Marital status: Tobacco Use Smoking status: Never Smokeless tobacco: Never Allergy Information: I have reviewed the patient's allergies. No Known Allergies Home Medications: Current Outpatient Medications Medication Sig Dispense Refill fluticasone propionate (FLONASE) 50 mcg/actuation nasal spray Instill 1 (one) spray into each nostril 2 (two) times a day . 16 g 3 loratadine (CLARITIN) 10 mg tablet Take 1 (one) tablet (10 mg total) by mouth daily . 30 tablet 3 montelukast (SINGULAIR) 10 mg tablet Take 1 (one) tablet (10 mg total) by mouth nightly . pantoprazole (PROTONIX) 40 MG tablet Take 1 (one) tablet (40 mg total) by mouth daily TAKE 1 TABLET BY MOUTH EVERY MORNING BEFORE BREAKFAST . No current facility-administered medications for this visit. ROS: Review of Systems Constitutional: Negative for activity change, appetite change, fatigue and fever. HENT: Positive for postnasal drip and tinnitus. Negative for congestion, ear discharge, ear pain, hearing loss, nosebleeds, rhinorrhea, sinus pressure, sinus pain, sneezing, sore throat, trouble swallowing and voice change. Eyes: Positive for visual disturbance (glasses). Negative for pain, discharge, redness and itching. Respiratory: Negative for apnea, cough, choking, chest tightness, shortness of breath and wheezing. Cardiovascular: Negative for chest pain and palpitations. Gastrointestinal: Negative for nausea and vomiting. Musculoskeletal: Negative for arthralgias, back pain, gait problem, myalgias, neck pain and neck stiffness. Skin: Negative for color change, pallor, rash and wound. Allergic/Immunologic: Negative for environmental allergies and immunocompromised state. Neurological: Negative for dizziness, syncope, facial asymmetry, weakness, light-headedness, numbness and headaches. Hematological: Negative for adenopathy. Psychiatric/Behavioral: Negative for confusion. The patient is not nervous/anxious. Physical Examination: Vital Signs: BP (!) 144/87 (BP Location: Left arm, Patient Position: Sitting, BP Cuff Size: Adult) Pulse 60 Ht 5' 2 Wt 59 kg (130 lb) SpO2 97% BMI 23.78 kg/m Physical Exam Vitals reviewed. Constitutional: General: She is not in acute distress. Appearance: She is well-developed. She is not ill-appearing or diaphoretic. HENT: Head: Normocephalic and atraumatic. No abrasion, contusion or laceration. Jaw: No tenderness, swelling or pain on movement. Right Ear: Tympanic membrane, ear canal and external ear normal. No drainage, swelling or tenderness. No middle ear effusion. No foreign body. No mastoid tenderness. Tympanic membrane is not scarred, perforated, retracted or bulging. Left Ear: Tympanic membrane, ear canal and external ear normal. No drainage, swelling or tenderness. No middle ear effusion. No foreign body. No mastoid tenderness. Tympanic membrane is not scarred, perforated, retracted or bulging. Nose: Nose normal. No nasal deformity, mucosal edema, congestion or rhinorrhea. Right Sinus: No maxillary sinus tenderness or frontal sinus tenderness. Left Sinus: No maxillary sinus tenderness or frontal sinus tenderness. Mouth/Throat: Lips: [place]. No lesions. Mouth: Mucous membranes are moist. No lacerations or oral lesions. Dentition: Normal dentition. No dental caries or dental abscesses. Tongue: No lesions. Palate: No mass. Pharynx: Uvula midline. No oropharyngeal exudate, posterior oropharyngeal erythema or uvula swelling. Eyes: General: No scleral icterus. Right eye: No discharge. Left eye: No discharge. Conjunctiva/sclera: Conjunctivae normal. Neck: Trachea: Phonation normal. Pulmonary: Effort: Pulmonary effort is normal. No respiratory distress. Musculoskeletal: General: Normal range of motion. Cervical back: Full passive range of motion without pain, normal range of motion and neck supple. No rigidity. Normal range of motion. Lymphadenopathy: Head: Right side of head: No submental, submandibular, tonsillar, preauricular or posterior auricular adenopathy. Left side of head: No submental, submandibular, tonsillar, preauricular or posterior auricular adenopathy. Cervical: No cervical adenopathy. Right cervical: No superficial, deep or posterior cervical adenopathy. Left cervical: No superficial, deep or posterior cervical adenopathy. Skin: General: Skin is warm and dry. Coloration: Skin is not pale. Findings: No erythema or rash. Neurological: General: No focal deficit present. Mental Status: She is alert and oriented to person, place, and time. GCS: GCS eye subscore is 4. GCS verbal subscore is 5. GCS motor subscore is 6. Psychiatric: Attention and Perception: Attention normal. Mood and Affect: Mood normal. Mood is not anxious. Affect is not blunt. Speech: Speech normal. Behavior: Behavior normal. Behavior is cooperative. Thought Content: Thought content normal. Cognition and Memory: Cognition normal. Judgment: Judgment normal. Assessment and Plan: Diana Gerard is a 67 y.o. y/o female presenting with PND New patient to me who presents with chronic PND that started several years ago and has be constant since onset requiring patient to spit up mucus due to taste. Has been unresponsive to previous PPI & leukotriene alfonso in the past. Denies associated reflux symptoms, allergies, or sinusitis. Patient instructed to begin dual therapy of daily Claritin in combination with twice daily Flonase nasal steroid spray. May consider in office scope at next visit if no improvement with instructed treatment. Patient verbalized understanding and is in agreement with plans of care. No additional questions or concerns voiced today. Follow-up 2 months or sooner with any changes or new concerns Diagnoses and all orders for this visit: Post-nasal drainage - Ambulatory referral to ENT - kang MoyaCLARITIN) 10 mg tablet; Take 1 (one) tablet (10 mg total) by mouth daily . - fluticasone propionate (FLONASE) 50 mcg/actuation nasal spray; Instill 1 (one) spray into each nostril 2 (two) times a day . Yves Jones CNP 11/30/22 documented in this encounter [facility] 10-18-2022 Hospital Discharge instructions Patient Education 10/18/2022 11:21:04 Cold Sore Cold Sore A cold sore, also called a fever blister, is a small, fluid-filled sore that forms inside the mouth or on the lips, gums, nose, chin, or cheeks. Cold sores can spread to other parts of the body, such as the eyes or fingers. In some people who have other medical conditions, cold sores can spread to multiple other body sites, including the genitals. Cold sores can spread from person to person (are contagious) until the sores crust over completely. Most cold sores go away within 2 weeks. What are the causes? Cold sores are caused by an infection from a common type of herpes simplex virus (HSV-1). HSV-1 is closely related to the HSV-2virus, which is the virus that causes genital herpes, but these viruses are not the same. Once a person is infected with HSV-1, the virus remains permanently in the body. HSV-1 is spread from person to person through close contact, such as through kissing, touching the affected area, or sharing personal items such as lip balm, razors, a drinking glass, or eating utensils. What increases the risk? You are more likely to develop this condition if you: Are tired, stressed, or sick. Are menstruating. Are . Take certain medicines. Are exposed to cold weather or too much sun. What are the signs or symptoms? Symptoms of a cold sore outbreak go through different stages. These are the stages of a cold sore: Tingling, itching, or burning is felt 1 2 days before the outbreak. Fluid-filled blisters appear on the lips, inside the mouth, on the nose, or on the cheeks. The blisters start to ooze clear fluid. The blisters dry up, and a yellow crust appears in their place. The crust falls off. In some cases, other symptoms can develop during a cold sore outbreak. These can include: Fever. Sore throat. Headache. Muscle aches. Swollen neck glands. How is this diagnosed? This condition is diagnosed based on your medical history and a physical exam. Your health care provider may do a blood test or may swab some fluid from your sore and then examine the swab in the lab. How is this treated? There is no cure for cold sores or HSV-1. There is also no vaccine for HSV-1. Most cold sores go away on their own without treatment within 2 weeks. Medicines cannot make the infection go away, but your health care provider may prescribe medicines to: Help relieve some of the pain associated with the sores. Work to stop the virus from multiplying. Shorten healing time. Medicines may be in the form of creams, gels, pills, or a shot. Follow these instructions at home: Medicines Take or apply fbwp-vrp-onunhub and prescription medicines only as told by your health care provider. Use a cotton-tip swab to apply creams or gels to your sores. Ask your health care provider if you can take lysine supplements. Research has found that lysine may help heal the cold sore faster and prevent outbreaks. Sore care Do not touch the sores or pick the scabs. Wash your hands often. Do not touch your eyes without washing your hands first. Keep the sores clean and dry. If directed, apply ice to the sores: ?Put ice in a plastic bag. ?Place a towel between your skin and the bag. ?Leave the ice on for 20 minutes, 2 3 times a day. Eating and drinking Eat a soft, bland diet. Avoid eating hot, cold, or salty foods. Use a straw if it hurts to drink out of a glass. Eat foods that are rich in lysine, such as meat, fish, and dairy products. Avoid sugary foods, chocolates, nuts, and grains. These foods are rich in a nutrient called arginine, which can cause the virus to multiply. Lifestyle Do not kiss, have oral sex, or share personal items until your sores heal. Stress, poor sleep, and being out in the sun can trigger outbreaks. Make sure you: ?Do activities that help you relax, such as deep breathing exercises or meditation. ?Get enough sleep. ?Apply sunscreen on your lips before you go out in the sun. Contact a health care provider if: You have symptoms for more than 2 weeks. You have pus coming from the sores. You have redness that is spreading. You have pain or irritation in your eye. You get sores on your genitals. Your sores do not heal within 2 weeks. You have frequent cold sore outbreaks. Get help right away if you have: A fever and your symptoms suddenly get worse. A headache and confusion. Fatigue or loss of appetite. A stiff neck or sensitivity to light. Summary A cold sore, also called a fever blister, is a small, fluid-filled sore that forms inside the mouth or on the lips, gums, nose, chin, or cheeks. Most cold sores go away on their own without treatment within 2 weeks. Your health care provider may prescribe medicines to help relieve some of the pain, work to stop the virus from multiplying, and shorten healing time. Wash your hands often. Do not touch your eyes without washing your hands first. Do not kiss, have oral sex, or share personal items until your sores heal. Contact a health care provider if your sores do not heal within 2 weeks. This information is not intended to replace advice given to you by your health care provider. Make sure you discuss any questions you have with your health care provider. Document Released: 08/12/2001 Document Revised: 12/05/2019 Document Reviewed: 01/15/2019 [employer] Patient Education 2019 [employer]. Follow Up Care 10/18/2022 09:08:15 With:Marin BATRES MD, FAM Address: When: only if needed Comments:please help schedule wellness exam [facility] 12-06-2021 Hospital Discharge instructions Patient Education 12/06/2021 12:49:30 Mammogram Mammogram A mammogram is a low energy X-ray of the breasts that is done to check for abnormal changes. This procedure can screen for and detect any changes that may indicate breast cancer. Mammograms are regularly done on women. A man may have a mammogram if he has a lump or swelling in his breast. A mammogram can also identify other changes and variations in the breast, such as: Inflammation of the breast tissue (mastitis). An infected area that contains a collection of pus (abscess). A fluid-filled sac (cyst). Fibrocystic changes. This is when breast tissue becomes denser, which can make the tissue feel rope-like or uneven under the skin. Tumors that are not cancerous (benign). Tell a health care provider: About any allergies you have. If you have breast implants. If you have had previous breast disease, biopsy, or surgery. If you are . If you are younger than age 25. If you have a family history of breast cancer. Whether you are or may be . What are the risks? Generally, this is a safe procedure. However, problems may occur, including: Exposure to radiation. Radiation levels are very low with this test. The results being misinterpreted. The need for further tests. The inability of the mammogram to detect certain cancers. What happens before the procedure? Schedule your test about 1 2 weeks after your menstrual period if you are still menstruating. This is usually when your breasts are the least tender. If you have had a mammogram done at a different facility in the past, get the mammogram X-rays or have them sent to your current exam facility. The new and old images will be compared. Wash your breasts and underarms on the day of the test. Do not wear deodorants, perfumes, lotions, or powders anywhere on your body on the day of the test. Remove any jewelry from your neck. Wear clothes that you can change into and out of easily. What happens during the procedure? You will undress from the waist up and put on a gown that opens in the front. You will fire and explosion investigator front of the X-ray machine. Each breast will be placed between two plastic or glass plates. The plates will compress your breast for a few seconds. Try to stay as relaxed as possible during the procedure. This does not cause any harm to your breasts and any discomfort you feel will be very brief. X-rays will be taken from different angles of each breast. The procedure may vary among health care providers and hospitals. What happens after the procedure? The mammogram will be examined by a specialist (radiologist). You may need to repeat certain parts of the test, depending on the quality of the images. This is commonly done if the radiologist needs a better view of the breast tissue. You may resume your normal activities. It is up to you to get the results of your procedure. Ask your health care provider, or the department that is doing the procedure, when your results will be ready. Summary A mammogram is a low energy X-ray of the breasts that is done to check for abnormal changes. A man may have a mammogram if he has a lump or swelling in his breast. If you have had a mammogram done at a different facility in the past, get the mammogram X-rays or have them sent to your current exam facility in order to compare them. Schedule your test about 1 2 weeks after your menstrual period if you are still menstruating. For this test, each breast will be placed between two plastic or glass plates. The plates will compress your breast for a few seconds. Ask when your test results will be ready. Make sure you get your test results. This information is not intended to replace advice given to you by your health care provider. Make sure you discuss any questions you have with your health care provider. Document Released: 08/12/2001 Document Revised: 04/05/2019 Document Reviewed: 04/05/2019 [employer] Patient Education 2020 [employer]. [facility] Evaluation + Plan note Future Appointments Appointment Date:12/16/2021 12:40:00 PM Scheduled Provider:Tari De La O CNP [place] [place] Type:BADH Screening [facility] Evaluation + Plan note Future Appointments Appointment Date:11/01/2022 08:00:00 AM Scheduled Provider: Location:[facility] Appointment Type: Medicare Wellness Initial [facility] Evaluation + Plan note [facility] Evaluation + Plan note Future Appointments Appointment Date:12/27/2023 02:20:00 PM Scheduled Provider:Marin BATRES MD Location:[facility] Appointment Type:FM Acute Appointment Date:01/02/2024 02:20:00 PM Scheduled Provider:Marin BATRES MD Location:[facility] Appointment Type:[facility] [place] Evaluation + Plan note Future Appointments Appointment Date:01/02/2024 02:20:00 PM Scheduled Provider:Marin BATRES MD Location:[facility] [place] Appointment Type:[facility] Medicine [place] Evaluation + Plan note Future Appointments Appointment Date:01/19/2024 09:00:00 AM Scheduled Provider:Tari Vanegas Location:[facility] Appointment Type:[facility] Evaluation note Diagnosis Bursitis of right shoulder- Primary Disorders of bursae and tendons in shoulder region, unspecified documented in this encounter [employer] Phone: [email or web address] note* Diagnosis Ovarian failure Other ovarian failure documented in this encounter [employer] Phone: evaluation note* Diagnosis Visit for screening mammogram Other screening mammogram documented in this encounter [employer] Phone: [email or web address] note* Diagnosis Epigastric pain Abdominal pain, epigastric Nausea Nausea alone documented in this encounter [email or web address] Phone: [email or web address] note* Diagnosis Epigastric pain Abdominal pain, epigastric Nausea Nausea alone documented in this encounter [email or web address] Phone: evaluation note* Diagnosis Neck muscle spasm- Primary Spasm of muscle Trapezius muscle spasm Spasm of muscle documented in this encounter [email or web address] Phone: [email or web address] note* Diagnosis Post-nasal drainage- Primary Other diseases of nasal cavity and sinuses [facility] Post[facility]al [facility]p- Primary [facility] Diagnosis Chest wall pain- Primary Painful respiration documented in this encounter [email or web address] Phone: Hospital course Narrative No data available for this section [facility] Discharge instructions* Attachments The following attachments cannot be sent through Care Everywhere. * Shoulder Bursitis Exercises (Chilean) [facility] [employer] Work Phone: Hospital Discharge instructions* Attachments The following attachments cannot be sent through Care Everywhere. * Neck Spasm (Chilean) [facility] [employer] Work Phone: Hospital Discharge instructions* Attachments The following attachments cannot be sent through Care Everywhere. * Chest Pain: Musculoskeletal (Chilean) [email or web address] [facility] Work Phone: Hospital Discharge instructions No data available for this section [facility] No data available for this section [facility] Reason for referral (narrative) Referred by: Marin BATRES MD [facility] Discharge Instructions * Attachments The following attachments cannot be sent through Care Everywhere. * Shingles (Chilean) * Neuropathic Pain (Chilean) documented in this encounter Assessments Diagnosis Herpes zoster without complication Nerve pain Neuralgia, neuritis, and radiculitis, unspecified Diagnosis Pain in both wrists Pain in joint, forearm Advance Directives No Advanced Directives Records FoundDocuments on File Type Date Recorded Patient Tailor Helper Expl anation Advance Directives and Living Will Power of Furniture Upholsterer Documents on File Type Date Recorded Patient Tailor Helper Expl anation ACP-Advance Directive ACP-Power of Furniture Upholsterer Documents on File Type Date Recorded Patient Tailor Helper Expl anation ACP-Advance Directive ACP-Power of Furniture Upholsterer Healthcare Agents on File Name Relationship Healthcare Agent Relationship Communication Federico Braga Spouse Primary Decision Maker Healthcare Agents on File Name Relationship Healthcare Agent Relationship Communication Federico Braga Spouse Primary Decision Maker Healthcare Agents on File Name Relationship Healthcare Agent Relationship Communication Federico Brgaa Spouse Primary Decision Maker Healthcare Agents on File Name Relationship Healthcare Agent Relationship Communication Federico Braga Spouse Primary Decision Maker Healthcare Agents on File Name Relationship Healthcare Agent Relationship Communication Federico Braga Spouse Primary Decision Maker Reason for Referral Specialty Diagnoses / Procedures Referred By Contac t Referred To Contact Radiology Diagnoses Ovarian failure Procedures DEXA BONE DENSITY 2 SITES Nilson Pan MD [address] [place] [id number] Referral ID Status Reason Start Date Expiration Date Visits Re quested Visits Authorized [id number] Closed 11/19/2021 11/19/2022 1 1 Specialty Diagnoses / Procedures Referred By Contac t Referred To Contact Radiology Diagnoses Visit for screening mammogram Procedures ASIF KEITH DIGITAL SCREEN BILATERAL Nilson Pan MD [address] [place] [id number] Referral ID Status Reason Start Date Expiration Date Visits Re quested Visits Authorized [id number] Closed 11/19/2021 11/19/2022 1 1 Specialty Diagnoses / Procedures Referred By Contac t Referred To Contact Radiology Diagnoses Epigastric pain Nausea Procedures US GALLBLADDER RUQ Nilson Pan MD [address] [place] [phone] Referral ID Status Reason Start Date Expiration Date Visits Re quested Visits Authorized [id number] Closed 05/06/2022 05/06/2023 1 1 Summary Purpose Family History No Family History Records FoundNo Family History Records Found No data available for this section No data available for this section No data available for this section No data available for this section No data available for this section No Family History Records FoundNo Family History Records Found No data available for this section No data available for this section No data available for this section No data available for this section No data available for this section No data available for this section No data available for this section No Family History Records Found Additional Source Comments Reason for Visit (unrecogniz ed section and content) Reason Comments Herpes Zoster states is painful an d causes her to be sob. is on medications for shingles. Reason Comments Shoulder Pain Pt has right schould er pain for past 2-3 weeks, pt is unsure of injury. Specialty Diagnoses / Procedures Referred By Patricia junior Referred To Contact Radiology Diagnoses Ovarian failure Procedures DEXA BONE DENSITY 2 SITES Nilson Pan MD [address] [place] [phone] Referral ID Status Reason Start Date Expiration Date Visits Re quested Visits Authorized [id number] Closed 11/19/2021 11/19/2022 1 1 Specialty Diagnoses / Procedures Referred By Patricia junior Referred To Contact Radiology Diagnoses Visit for screening mammogram Procedures ASIF KEITH DIGITAL SCREEN BILATERAL Nilson Pan MD [address] [place] [phone] Referral ID Status Reason Start Date Expiration Date Visits Re quested Visits Authorized [id number] Closed 11/19/2021 11/19/2022 1 1 Specialty Diagnoses / Procedures Referred By Patricia junior Referred To Contact Radiology Diagnoses Epigastric pain Nausea Procedures US GALLBLADDER RUQ Nilson Pan MD [address] [place] [id number] Referral ID Status Reason Start Date Expiration Date Visits Re quested Visits Authorized [id number] Closed 05/06/2022 05/06/2023 1 1 Reason Comments Neck Pain Pt c/o 10/10 neck/he ad pain x 2 days. Worse on right. Took ibuprofen yesterday with no relief. Reason Comments New Patient PND Specialty Diagnoses / Procedures Referred By Patricia junior Referred To Contact Otolaryngology Diagnoses Post-nasal drainage Nilson Pan MD [address] [place] [phone] Demetrice Alfonso MD [facility] Justinlouise Rodriguez [address] [place] [address] Referral ID Status Reason Start Date Expiration Date V isits Requested Visits Authorized [id number] Pending Review 06/10/2022 06/10/2023 1 1 Reason Comments Chest Pain Left sided chest kassy n, few weeks, sometimes unable to move left side, diaphoretic Shortness of Breath Ordered Prescriptions (unrec ognized section and content) Prescription Sig Dispensed Refills Start Date End Da te ibuprofen (ADVIL;MOTRIN) 600 MG tablet Take 1 tablet by mouth 3 times daily as needed for Pain 30 tablet 0 07/17/2021 Prescription Sig Dispensed Refills Start Date End Da te ibuprofen (IBU) 600 MG tablet Take 1 tablet by mouth every 6 hours as needed for Pain 30 tablet 0 08/09/2022 cyclobenzaprine (FLEXERIL) 10 MG tablet Take 1 tablet by mouth 3 times daily as needed for Muscle spasms 15 tablet 0 08/09/2022 08/19/2022 cyclobenzaprine (FLEXERIL) 10 MG tablet Take 1 tablet by mouth 3 times daily as needed for Muscle spasms 15 tablet 0 08/09/2022 08/09/2022 ibuprofen (IBU) 600 MG tablet Take 1 tablet by mouth every 6 hours as needed for Pain 30 tablet 0 08/09/2022 08/09/2022 Prescription Sig Dispensed Refills Start Date End Da te predniSONE (DELTASONE) 20 MG tablet 2 tabs daily x 3 days then 1 tab daily 10 tablet 0 12/11/2022 Scheduled Active and Recently Administ ered Medications (unrecognized section and content) Medication Order 07/15/2021 07/16/2021 07/17/2021 bupivacaine (PF) (MARCAINE) 0.5 % injection 50 mg (COMPLETED) 50 mg (10 mL), Intra-artICUlar, ONCE, On Tue07/17/21 at 1130, For 1 dose 1147 (Given by Other - Provider: Paul Deluna RN) ketorolac (TORADOL) injection 30 mg (COMPLETED) 30 mg, IntraMUSCular, ONCE, On Tue07/17/21 at 1130, For 1 dose 1138 (Given - Provid er: Paul Deluna RN) methylPREDNISolone acetate (DEPO-MEDROL) injection 80 mg (COMPLETED) 80 mg, Intra-artICUlar, ONCE, On Tue07/17/21 at 1130, For 1 dose 1149 (Given by Other - Provider: Paul Deluna, YUSUF) Scheduled Medication Order 08/07/2022 08/08/2022 08/09/2022 ketorolac (TORADOL) injection 30 mg (COMPLETED) Ketorolac is contraindicated in patients with advanced renal impairment and in patients at risk of renal failure due to volume depletion. For 65 years of age and older OR weight less than 50 kg, use 15 mg IV every 6 hours; MAX dose: 60 mg/day. Dose greater than 30 mg must be administered via intramuscular route. Do not administer for more than 5 days., 30 mg, IntraVENous, ONCE, 1 dose, On 08/09/22 at 0615, Do not administer for more than 5 days. 0618 (Given - Provid er: Johanne Simon RN) orphenadrine (NORFLEX) injection 30 mg (COMPLETED) 30 mg, IntraVENous, ONCE, 1 dose, On 08/09/22 at 0615 0621 (Given - Provid er: Johanne Simon RN) Scheduled Medication Order 12/09/2022 12/10/2022 12/11/2022 ketorolac (TORADOL) injection 15 mg (COMPLETED) 15 mg, IntraVENous, ONCE, 1 dose, On Tue12/11/22 at 0900, Do not administer for more than 5 days. 0852 (Given - Provid er: Keila Meier RN) Care Teams (unrecognized sec tion and content) Humanities Department Chair Relationship Specialty Start Date End Date Marin Batres MD [address] [place] [address] [place] [address] PCP - General 12/13/13 Humanities Department Chair Relationship Specialty Start Date End Date Nilson Pan MD [address] [place] [address] PCP - General Family Medicine 11/19/21 Humanities Department Chair Relationship Specialty Start Date End Date Nilson Pan MD [address] [place] [address] PCP - General Family Medicine 11/19/21 Humanities Department Chair Relationship Specialty Start Date End Date Nilson Pan MD [address] [place] [address] PCP - General Family Medicine 11/19/21 Humanities Department Chair Relationship Specialty Start Date End Date Marin Batres MD [address] [place] [phone] PCP - General Family Medicine 08/09/22 Humanities Department Chair Relationship Specialty Start Date End Date Nilson Pan MD [address] [place] [address] PCP - General Family Medicine 06/10/22 Humanities Department Chair Relationship Specialty Start Date End Date Nilson Pan MD [address] [place] [address] PCP - General Family Medicine 06/10/22 Humanities Department Chair Relationship Specialty Start Date End Date Nilson Pan MD [address] [place] [address] PCP - General Family Medicine 09/24/22 INFORMATION SOURCE (unrecogn ized section and content) DATE CREATED AUTHOR [facility]02[facility]2022 [facility] DATE CREATED AUTHOR AUTHOR'S ORGANIZ ATION 12/02/2022 [facility] DATE CREATED AUTHOR AUTHOR'S ORGANIZ ATION 09/13/2023 [facility] DATE CREATED AUTHOR AUTHOR'S ORGANIZ ATION 09/19/2023 [facility] DATE CREATED AUTHOR AUTHOR'S ORGANIZ ATION 04/08/2024 [facility] FOR RECORDS PERTAINING TO PATIENTS WHO ARE OR HAVE BEEN ENROLLED IN A CHEMICAL DEPENDENCY/SUBSTANCEABUSE PROGRAM, SOME INFORMATION MAY BE OMITTED. This clinical summary was aggregated from multiple sources. Caution should be exercised in using it in the provision of clinical care. This summary normalizes information from multiple sources, and as a consequence, information in this document may materially change the coding, format and clinical context of patient data. In addition, data may be omitted in some cases. CLINICAL DECISIONS SHOULD BE BASED ON THE PRIMARY CLINICAL RECORDS. [employer]. provides no warranty or guarantee of the accuracy or completeness of information in this document.
== END 2024-04-09 07:54 | disposition home or self-care (01) ==
LOC: MAMMO 07:54
PROVIDERS: Visit Provider Obstetrics & Gynecology
DX: Z12.31 Encounter for screening mammogram for malignant neoplasm of breast (principal); Z80.3 Family history of malignant neoplasm of breast
CPT/HCPCS: 77063; 77067

== ENCOUNTER 2025-01-03 10:47 | Outpatient (OUT) | payer OTHER, MEDICARE, SELFPAY ==
[2025-01-03 12:01] LABS: Thyroid Stimulating Hormone 0.709 uIU/mL (0.358-3.740)
[2025-01-04 08:08] LABS: Vitamin B12 >2000 pg/mL (232-1245)
== END 2025-01-03 10:48 | disposition home or self-care (01) ==
LOC: LAB 10:47
PROVIDERS: Visit Provider Psychiatry & Neurology Neurology
DX: G30.1 Alzheimer's disease with late onset (principal); F02.80 Dementia in other diseases classified elsewhere, unspecified severity, without behavioral disturbance, psychotic disturbance, mood disturbance, and anxiety
CPT/HCPCS: 36415; 82607; 82746; 84443